=== PATIENT | female | born 1950 | race Caucasian/White ===

== ENCOUNTER 2021-03-06 06:12 | Observation (INO) | payer MEDICARE, OTHER ==
[~2021-03-06] VITALS: Ht 160 cm; Wt 58.7 kg
[2021-03-06] MEDS ORDERED: NS IV 1000 ML 1,000 ML IV SCH (06:30)
[2021-03-06] MEDS ORDERED: LORazepam INJ 2 MG/ML (ATIVAN) VIAL IVP ONE (06:30)
--- NOTE | 2021-03-06 06:54 | ED Cardiac General ---
History of Present Illness General Chief Complaint: Cardiac/General Problems Stated Complaint: ABNORMAL HEARTRATE Nursing Triage Note: Pt states she feels like her heart rate has been higher than her normal. Pt also states she has felt nauseated and dizzy since last night. Pt denies chest pain at this time Source: patient Exam Limitations: no limitations (RADHA SPENCER DO) History of Present Illness Date Seen by Provider: Mar 06, 2021 Time Seen by Provider: 06:25 Initial Comments Patient has 70-year-old female with history of dyslipidemia mitral valve prolapse who presents with recent fever of 1 week ago body aches slight headache. Patient was evaluated at urgent care and had a Covid and influenza swab which were negative. She was placed on amoxicillin for what was believed to be sinus infection. She has h as noted shortness of breath dizziness and palpitations over the past 3 days. She states that her resting heart rate is usually in the 60s but has been in the 110s. She feels anxious and has had difficulty sleeping and only slept 1 hour last night. She reports dyspnea with mild exertion and dry mouth. She no longer has fever, cough or sore throat. She is not on any decongestants or stimulants. Denies leg pain or swelling. No other symptoms or complaints. She denies history of thyroid disease or PE. She has completed the motor neck Covid Moderna vaccination series in October. \\ Timing/Duration: 6-7 days Severity: moderate Location: other Activities at Onset: other Prior CP/Workup: other Modifying Factors: improves with other Associated Systoms: Other (RADHA SPENCER DO) Allergies and Home Medications Allergies Coded Allergies: amoxicillin (Verified Allergy, Unknown, 03/06/21) clavulanic acid (Verified Allergy, Unknown, 03/06/21) Home Medications Ascorbic Acid 250 Mg Tab.chew, 250 MG PO DAILY, (Reported) Last Action: Reviewed Atorvastatin Calcium 20 Mg Tablet, 20 MG PO HS, (Reported) Last Action: Reviewed Ca Carbonate/Vitamin D3/Vit K 1 Each Tab.chew, 1 EACH PO DAILY, (Reported) Last Action: Reviewed Cholecalciferol (Vitamin D3) 50 Mcg Tab.chew, 50 MCG PO DAILY, (Reported) Last Action: Reviewed Ciclopirox Olamine 15 Gm Cream..g., 1 APPLIC TOP BID, (Reported) APPLY TO TOENAILS Last Action: Reviewed Fluticasone Propionate 16 Gm [place].susp, 1 SPRAY NSEACH DAILY, (Reported) Last Action: Reviewed Folic Acid/Multivit-Minerals 200 Mcg Tab.chew, 200 MCG PO DAILY, (Reported) Last Action: Reviewed Furosemide 40 Mg Tablet, 40 MG PO DAILY Prescribed by: ILENE BOURGEOIS on 03/07/21 1346 Ibuprofen 100 Mg Tab.chew, 200 MG PO Q8H PRN for PAIN-MILD (1-4), (Reported) Last Action: Reviewed Potassium Chloride 40 Meq/15 Ml Liquid, 10 MEQ PO DAILY Prescribed by: ILENE BOURGEOIS on 03/07/21 1346 Ubidecarenone 50 Mg Tab.chew, 50 MG PO DAILY, (Reported) Last Action: Reviewed Patient Home Medication List Home Medication List Reviewed: Yes (RADHA SPENCER DO) Review of Systems Review of Systems Constitutional: see HPI EENTM: See HPI Respiratory: See HPI Cardiovascular: See HPI Gastrointestinal: See HPI Genitourinary: See HPI Musculoskeletal: see HPI Skin: see HPI Psychiatric/Neurological: See HPI Endocrine: See HPI Hematologic/Lymphatic: See HPI (RADHA SPENCER DO) Past Olzupca-Agmjtd-Pvfnej Hx Patient Social History Tobacco Use?: Yes Use of E-Cig and/or Vaping dev: No Substance use?: No Alcohol Use?: No Pt feels they are or have been: No (RADHA SPENCER DO) Physical Exam Vital Signs Vital Signs - First Documented 03/06/21 06:15 Temp 36.8 Pulse 122 Resp 18 B/P (MAP) 158/77 (104) Pulse Ox 95 O2 Delivery Room Air Capillary Refill : Less Than 3 Seconds Height, Weight, BMI Height: '" Weight: lbs. oz. kg; BMI Method: General Appearance: WD/WN, Anxious, Other (Restless, fidgeting of all extremities, pressured speech) HEENT: PERRL/EOMI, TMs Normal, Normal ENT Inspection, Pharynx Normal, Other (No sinus tenderness) Neck: Normal Inspection, Non Tender, Supple Respiratory: Lungs Clear, Normal Breath Sounds, No Respiratory Distress, Other (Mild tachypnea, respiratory rate 18) Cardiovascular: No Edema, No Gallop, No JVD, Tachycardia Gastrointestinal: Soft Extremity: Normal Capillary Refill, Normal Inspection, Normal Range of Motion, Non Tender Neurologic/Psychiatric: Alert, Oriented x3, No Motor/Sensory Deficits, 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 Norm as Tested Skin: Normal Color, Warm/Dry (JOHANNARADHA ) Vital Signs Vital Signs - First Documented 03/06/21 06:15 Temp 36.8 Pulse 122 Resp 18 B/P (MAP) 158/77 (104) Pulse Ox 95 O2 Delivery Room Air (AXELWILLIAM FRANCISCO ) Focused Exam Sepsis Stage: Ruled Out (RADHA SPENCER DO) Lactate Level 03/06/21 06:30: Lactic Acid Level 1.57 (AXELTINLOANWILLIAM Duke ) Lactic Acid Level Laboratory Tests Test 03/06/21 06:30 Lactic Acid Level 1.57 MMOL/L (0.50-2.00) (AXELTINLOANWILLIAM Duke ) Progress/Results/Core Measures Results/Orders My Orders Orders - RADHA SPENCER DO Cbc With Automated Diff (03/06/21 06:30) Comprehensive Metabolic Panel (03/06/21 06:30) Troponin I Fs (03/06/21 06:30) Probnp Fs (03/06/21 06:30) Chest 1 View Ap/Pa Only (03/06/21 06:30) Fibrin Degradation Products (03/06/21 06:30) Magnesium (03/06/21 06:30) Lorazepam Injection (Ativan Injection) (03/06/21 06:30) Ns Iv 1000 Ml (Sodium Chloride 0.9%) (03/06/21 06:30) Lactic Acid Analyzer (03/06/21 06:30) Ekg Tracing (03/06/21 06:36) Medications Given in ED Current Medications Medications Dose Ordered Sig/Kelsi Route Start Time Stop Time Status Last Admin Dose Admin Lorazepam 0.5 mg ONCE ONCE IVP 03/06/21 06:30 03/06/21 06:32 DC 03/06/21 06:46 0.5 MG Vital Signs/I&O 03/06/21 06:15 Temp 36.8 Pulse 122 Resp 18 B/P (MAP) 158/77 (104) Pulse Ox 95 O2 Delivery Room Air Blood Pressure Mean: 104 (RADHA SPENCER DO) Lab Results Laboratory Tests Test 03/06/21 06:30 Range/Units White Blood Count 9.4 4.3-11.0 10^3/uL Red Blood Count 5.04 4.35-5.85 10^6/uL Hemoglobin 15.2 11.5-16.0 G/DL Hematocrit 46 35-52 % Mean Corpuscular Volume 91 80-99 FL Mean Corpuscular Hemoglobin 30 25-34 PG Mean Corpuscular Hemoglobin Concent 33 32-36 G/DL Red Cell Distribution Width 13.0 10.0-14.5 % Platelet Count 213 130-400 10^3/uL Mean Platelet Volume 10.6 H 7.4-10.4 FL Immature Granulocyte % (Auto) 0 % Neutrophils (%) (Auto) 77 H 42-75 % Lymphocytes (%) (Auto) 13 12-44 % Monocytes (%) (Auto) 9 0-12 % Eosinophils (%) (Auto) 1 0-10 % Basophils (%) (Auto) 0 0-10 % Neutrophils # (Auto) 7.2 1.8-7.8 X 10^3 Lymphocytes # (Auto) 1.2 1.0-4.0 X 10^3 Monocytes # (Auto) 0.8 0.0-1.0 X 10^3 Eosinophils # (Auto) 0.1 0.0-0.3 10^3/uL Basophils # (Auto) 0.0 0.0-0.1 10^3/uL Immature Granulocyte # (Auto) 0.0 0.0-0.1 10^3/uL D-Dimer 1.02 H 0.00-0.49 UG/ML Sodium Level 138 135-145 MMOL/L Potassium Level 4.0 3.6-5.0 MMOL/L Chloride Level 101 98-107 MMOL/L Carbon Dioxide Level 22 21-32 MMOL/L Anion Gap 15 H 5-14 MMOL/L Blood Urea Nitrogen 12 7-18 MG/DL Creatinine 0.62 0.60-1.30 MG/DL Estimat Glomerular Filtration Rate > 60 BUN/Creatinine Ratio 19 Glucose Level 106 H 70-105 MG/DL Lactic Acid Level 1.57 0.50-2.00 MMOL/L Calcium Level 9.5 8.5-10.1 MG/DL Corrected Calcium 9.5 8.5-10.1 MG/DL Magnesium Level 2.1 1.6-2.4 MG/DL Total Bilirubin 0.5 0.1-1.0 MG/DL Aspartate Amino Transf (AST/SGOT) 24 5-34 U/L Alanine Aminotransferase (ALT/SGPT) 32 0-55 U/L Alkaline Phosphatase 117 40-136 U/L Troponin I < 0.30 <0.30 NG/ML Pro-B-Type Natriuretic Peptide 1048.0 H <75.0 PG/ML Total Protein 7.4 6.4-8.2 GM/DL Albumin 4.0 3.2-4.5 GM/DL My Orders Orders - WILLIAM WALTER DO Ct Angio Chest W (03/06/21 07:36) Iohexol Injection (Omnipaque 350 Mg/Ml 1 (03/06/21 07:45) Received Contrast (Hold Metformin- Contr (03/06/21 07:45) Sodium Chloride Flush (Catheter Flush Sy (03/06/21 07:45) Ns (Ivpb) (Sodium Chloride 0.9% Ivpb Bag (03/06/21 07:45) Enoxaparin Injection (Lovenox Injection) (03/06/21 08:00) Metoprolol Tartrate Injection (Lopressor (03/06/21 08:45) Metoprolol Tartrate Injection (Lopressor (03/06/21 09:30) Medications Given in ED Current Medications Medications Dose Ordered Sig/Kelsi Route Start Time Stop Time Status Last Admin Dose Admin Iohexol 100 ml ONCE ONCE IV 03/06/21 07:45 03/06/21 07:46 DC 03/06/21 08:00 100 ML Lorazepam 0.5 mg ONCE ONCE IVP 03/06/21 06:30 03/06/21 06:32 DC 03/06/21 06:46 0.5 MG Metoprolol Tartrate 5 mg ONCE ONCE IV 03/06/21 08:45 03/06/21 08:46 DC 03/06/21 08:44 5 MG Metoprolol Tartrate 5 mg ONCE ONCE IV 03/06/21 09:30 03/06/21 09:31 DC 03/06/21 09:24 5 MG Sodium Chloride 10 ml NEEDED PRN IV 03/06/21 07:45 03/06/21 08:00 10 ML Sodium Chloride 100 ml ONCE ONCE IV 03/06/21 07:45 03/06/21 07:46 DC 03/06/21 08:00 100 ML Vital Signs/I&O 03/06/21 03/06/21 06:15 09:12 Temp 36.8 36.1 Pulse 122 99 Resp 18 18 B/P (MAP) 158/77 (104) 140/88 Pulse Ox 95 96 O2 Delivery Room Air Room Air (WILLIAM WALTER DO) Progress Progress Note : Progress Note symptomatic improvement when HR slows w metoprolol. Otherwise stable and well appearing. 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 The lungs are clear. There is no effusion or pneumothorax. There is no bony abnormality. IMPRESSION: Normal portable chest. Dictated on workstation # [id number] INDICATION: Tachycardia, elevated d-dimer with shortness of breath. I have no previous. The pulmonary arterial branches are well opacified, widely patent. No filling defect. No PE. The thoracic aorta is patent, nonaneurysmal and nonacute. This patient has bilateral pleural effusions, slightly greater right. They are nonloculated and the right layers to a maximal depth of 2.4 cm. There is some subjacent dependent bibasilar partial atelectasis and a small hiatal hernia. Some mild circumferential thickening of the beltran of the lower thoracic esophagus which may reflect sequelae of reflux. There is no pneumothorax. Heart size itself within normal limits. There is some mild prominence of the pulmonary venous structures and perihilar lower lobe interstitial markings showed some smooth thickening and mild basilar groundglass density. Hypervolemia or mild failure may be present. Infectious etiology including viral pathogens could not be excluded in the appropriate scenario. No acute chest wall pathology. The visualized upper abdomen demonstrates no acute appearing abnormality. IMPRESSION: 1. Negative for PE or acute aortic disease. 2. Bilateral pleural effusions, mild venous congestion, and probable mild perihilar and basilar interstitial type edema. Infectious etiologies could not be excluded. 3. No mass or lymphadenopathy. Dictated on workstation # [id number] Dict: 03/06/21822 Trans: 03/06/21 0831 [place] [id number] Interpreted by: SUSY STOCKTON Electronically signed by: Dict: 03/06/21719 Trans: 03/06/21 0724 [place] [id number] Interpreted by: SAH DICK MD Electronically signed by: (WILLIAM WALTER DO) Departure Communication (Admissions) EKG dated 03/06/21, 06:19: Sinus tach, rate 111, TN 1 67, QRS 99, QTc 442. No acute ST-T wave changes Patient anxious with palpitations with mild tachycardia in setting of recent fever. Blood pressure stable. IV fluids, Ativan given. Work-up in progress. Care to be transitioned to oncoming ERP at 07:00 (RADHA SPENCER DO) Time/Spoke to Admitting Phy: 09:[address] Bourgeois who accepts for Tele- admission. Discussed seemingly insignificant PMHX of MVP and HPI of recent dyspnea, malaise and rapid resting HR developing and gradually progressing over the past several days. Unable to get thyroid or covid testing at this facility. Patient had a negative Covid test over the weekend at a local Urgent Care and is also vaccinated to C-19 in October noted elevted p-BNP w small venous congestion and effusions on CT Much improved w IV Metoprolol 5mg x 2 (WILLIAM WALTER DO) Impression Primary Impression: Dyspnea Qualified Codes: R06.00 - Dyspnea, unspecified Additional Impressions: Sinus tachycardia Elevated d-dimer Heart failure Qualified Codes: I50.9 - Heart failure, unspecified Disposition: 30 STILL A PATIENT Condition: Improved Admissions Decision to Admit Reason: Admit from ER (General) Decision to Admit/Date: Mar 06, 2021 Time/Decision to Admit Time: 07:00 (WILLIAM WALTER DO) Departure-Patient Inst. Referrals: RICHIE CALVILLO MD (PCP/Family) Primary Care Physician Scripts Potassium Chloride (Potassium Chloride) 40 Meq/15 Ml Liquid 10 MEQ PO DAILY, #8 OZ Prov: ILENE BOURGEOIS DO 03/07/21 Furosemide (Furosemide) 40 Mg Tablet 40 MG PO DAILY, #30 TAB Prov: ILENE BOURGEOIS DO 03/07/21 RADHA SPENCER DO Mar 06, 2021 06:54 WILLIAM WALTER DO Mar 06, 2021 07:36
[2021-03-06 07:15] LABS: EOSINOPHILS % (AUTO) 1 % (0-10); HEMATOCRIT 46 % (35-52); HEMOGLOBIN 15.2 G/DL (11.5-16.0); LYMPHOCYTES % (AUTO) 13 % (12-44); MEAN CORPUSCULAR HEMOGLOBIN 30 PG (25-34); MEAN CORPUSCULAR HGB CONC 33 G/DL (32-36); MEAN CORPUSCULAR VOLUME 91 FL (80-99); MEAN PLATELET VOLUME 10.6 FL (7.4-10.4); MONOCYTES % (AUTO) 9 % (0-12); NEUTROPHILS % (AUTO) 77 % (42-75); PLATELET COUNT 213 10^3/uL (130-400); WHITE BLOOD COUNT 9.4 10^3/uL (4.3-11.0)
[2021-03-06 07:16] LABS: BASOPHILS % (AUTO) 0 % (0-10); EOSINOPHILS # (AUTO) 0.1 10^3/uL (0.0-0.3); LYMPHOCYTES # (AUTO) 1.2 X 10^3 (1.0-4.0); MONOCYTES # (AUTO) 0.8 X 10^3 (0.0-1.0); NEUTROPHILS # (AUTO) 7.2 X 10^3 (1.8-7.8)
--- NOTE | 2021-03-06 07:24 | Diagnostic Imaging Report ---
Indication: Tachycardia Portable chest shows normal heart size and vascularity. The lungs are clear. There is no effusion or pneumothorax. There is no bony abnormality. IMPRESSION: Normal portable chest. Dictated by: Dictated on workstation # [id number]
[2021-03-06 07:36] LABS: ALANINE AMINOTRANSFERASE 32 U/L (0-55); ALKALINE PHOSPHATASE 117 U/L (40-136); BILIRUBIN,TOTAL 0.5 MG/DL (0.1-1.0); BUN/CREATININE RATIO 19; CALCIUM 9.5 MG/DL (8.5-10.1); CARBON DIOXIDE 22 MMOL/L (21-32); CHLORIDE 101 MMOL/L (98-107); CREATININE SERUM 0.62 MG/DL (0.60-1.30); GFR ESTIMATED > 60; GLUCOSE 106 MG/DL (70-105); MAGNESIUM 2.1 MG/DL (1.6-2.4); SODIUM 138 MMOL/L (135-145); TOTAL PROTEIN 7.4 GM/DL (6.4-8.2)
[2021-03-06] MEDS ORDERED: IOHEXOL 350 MG/ML 100 ML (OMNIPAQUE 350) VIAL IV ONE (07:45)
[2021-03-06] MEDS ORDERED: CATHETER FLUSH 10 ML SYR IV PRN (07:45)
[2021-03-06] MEDS ORDERED: HOLD METFORMIN - RECEIVED CONTRAST 20 ML VIAL IV SCH (07:45)
[2021-03-06] MEDS ORDERED: NS 100 ML (IVPB) BAG IV ONE (07:45)
[2021-03-06] MEDS ORDERED: ENOXAPARIN 40 MG/0.4 ML (LOVENOX) SYR SQ SCH (08:00)
--- NOTE | 2021-03-06 08:32 | Diagnostic Imaging Report ---
PROCEDURE: CT angiography of the chest with contrast. TECHNIQUE: Multiple contiguous axial images were obtained through the chest after uneventful bolus administration of intravenous contrast. 3D reconstructed CTA MIP acquisitions were also performed. Auto Exposure Controls were utilized during the CT exam to meet ALARA standards for radiation dose reduction. INDICATION: Tachycardia, elevated d-dimer with shortness of breath. I have no previous. The pulmonary arterial branches are well opacified, widely patent. No filling defect. No PE. The thoracic aorta is patent, nonaneurysmal and nonacute. This patient has bilateral pleural effusions, slightly greater right. They are nonloculated and the right layers to a maximal depth of 2.4 cm. There is some subjacent dependent bibasilar partial atelectasis and a small hiatal hernia. Some mild circumferential thickening of the beltran of the lower thoracic esophagus which may reflect sequelae of reflux. There is no pneumothorax. Heart size itself within normal limits. There is some mild prominence of the pulmonary venous structures and perihilar lower lobe interstitial markings showed some smooth thickening and mild basilar groundglass density. Hypervolemia or mild failure may be present. Infectious etiology including viral pathogens could not be excluded in the appropriate scenario. No acute chest wall pathology. The visualized upper abdomen demonstrates no acute appearing abnormality. IMPRESSION: 1. Negative for PE or acute aortic disease. 2. Bilateral pleural effusions, mild venous congestion, and probable mild perihilar and basilar interstitial type edema. Infectious etiologies could not be excluded. 3. No mass or lymphadenopathy. Dictated by: Dictated on workstation # [id number]
[2021-03-06] MEDS ORDERED: meTOprolol 5 MG/5 ML (LOPRESSOR) VIAL IV ONE ×2 (08:45→09:30)
[2021-03-06 10:35] VITALS: BP 151/93
--- NOTE | 2021-03-06 11:30 | History & Physical-Hospitalist ---
History of Present Illness HPI/Chief Complaint CC: SOB HPI: This is a 70yoWF clinic Pt of Dr. Rincon and cardiology at [facility] who has a history of hyperlipidemia and mitral valve prolapse who presented to the [facility] ER with several days duration of SOB, she had gone to Urgent Care on Thursday morning, treated for a sinus infection, tested for Covid-19 which was negative and she had been vaccinated in October again Covid. Upon evaluation, she was found to have fluid overload and likely new onset CHF. [facility] had no beds available so she was transferred to [facility]. Dr. Lopez will be consulted and echocardiogram will be obtained. Pt denies any current pain right now. Oxygen is required or else she does have chest pressure. 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 Patients Allergies have been reviewed. Allergies Allergies Coded Allergies amoxicillin (Verified Allergy, Unknown, 03/06/21) clavulanic acid (Verified Allergy, Unknown, 03/06/21) Past Aajeizf-Eqglht-Ozsdfi Hx Patient Social History Marrital Status: Employed/Student: employed Tobacco Use?: No Smoking Status: Never a Smoker Smokeless Tobacco Frequency: Never a User Use of E-Cig and/or Vaping dev: No Substance use?: No Alcohol Use?: Yes Alcohol type: Wine Alcohol Frequency: Once in a while Pt feels they are or have been: No Immunizations Up To Date First/Initial COVID19 Vaccinat: SEPTEMBER 2020 Second COVID19 Vaccination Felix: OCTOBER 2020 Tetanus Booster (TDap): Unknown Hepatitis A: No Hepatitis B: No Current Status status: No Advance Directives: No Communicates: Verbally Primary Language: Scottish Preferred Spoken Language: Scottish Is interpretation needed?: No Sensory deficits: Vision impairment Implanted or Applied Medical D: None Past Medical History High Cholesterol, Valvular Heart Disease Review of Systems Constitutional: see HPI Respiratory: dyspnea on exertion, short of breath Physical Exam Physical Exam Vital Signs Vital Signs - First Documented 03/06/21 03/06/21 06:15 12:35 Temp 36.8 Pulse 122 Resp 18 B/P (MAP) 158/77 (104) Pulse Ox 95 O2 Delivery Room Air O2 Flow Rate 2.00 Capillary Refill : Less Than 3 Seconds Height, Weight, BMI Height: '" Weight: lbs. oz. kg; 23.59 BMI Method: General Appearance: No Apparent Distress Eyes: Right Eye Normal Inspection, Right Eye PERRL HEENT: PERRL/EOMI, Normal ENT Inspection, Pharynx Normal, Moist Mucous Membranes Neck: Full Range of Motion, Normal Inspection, Non Tender Respiratory: Chest Non Tender, Lungs Clear, Normal Breath Sounds, No Accessory Muscle Use, No Respiratory Distress Cardiovascular: Regular Rate, Rhythm, No Edema, No Gallop, No JVD, Normal Per ipheral Pulses, Systolic Murmur Gastrointestinal: Normal Bowel Sounds, No Organomegaly, No Pulsatile Mass, Non Tender, Soft Back: Normal Inspection, No CVA Tenderness, No Vertebral Tenderness Extremity: Normal Capillary Refill, Normal Inspection, Normal Range of Motion, Non Tender, No Calf Tenderness, No Pedal Edema Neurologic/Psychiatric: Alert, Oriented x3, No Motor/Sensory Deficits, Normal Mood/Affect Skin: Normal Color, Warm/Dry Lymphatic: No Adenopathy Results Results/Procedures Labs Laboratory Tests 03/06/21 06:30 Patient resulted labs reviewed. Assessment/Plan Admission Diagnosis Assessment: New onset congestive heart failure Severe mitral valve regurgitation with history of mitral valve prolapse managed at [facility] Plan: Cardiology consultation is appreciated Echocardiogram Monitor labs Diuresis Admission Status: Observation Reason for Inpatient Admission: CHF Diagnosis/Problems Diagnosis/Problems (1) Acute diastolic congestive heart failure (2) Pulmonary hypertension (3) Mitral regurgitation (4) Mixed hyperlipidemia (5) Dyspnea Status: Acute Qualifiers: Dyspnea type: unspecified Qualified Codes: R06.00 - Dyspnea, unspecified (6) Elevated d-dimer Status: Acute (7) Sinus tachycardia Status: Acute MEGAN BARNES DO Mar 06, 2021 11:30
[2021-03-06] MEDS ORDERED: ATOR20TA66 PO (12:27)
[2021-03-06] MEDS ORDERED: FLUT16SP22 NSEACH (12:27)
[2021-03-06] MEDS ORDERED: FOLI200T11 PO (12:27)
[2021-03-06] MEDS ORDERED: AMOX400S9 PO (12:27)
[2021-03-06] MEDS ORDERED: IBUP100T74 PO (12:27)
[2021-03-06] MEDS ORDERED: ASCO250T17 PO (12:27)
[2021-03-06] MEDS ORDERED: CICL15CR11 TOP (12:27)
[2021-03-06] MEDS ORDERED: CA C1TAB79 PO (12:27)
[2021-03-06] MEDS ORDERED: CHOL200078 PO (12:27)
[2021-03-06] MEDS ORDERED: UBID50TA3 PO (12:27)
[2021-03-06 12:35] VITALS: BP 147/87
[2021-03-06] MEDS ORDERED: FUROSEMIDE 40 MG/4 ML INJ (LASIX) IVP NR (13:00)
--- NOTE | 2021-03-06 13:09 | Consultation-Cardiology ---
HPI-Cardiology Cardiology Consultation: Date of Consultation 03/06/2021 Date of Admission 03/06/2021 Attending Physician Megan Barnes DO Admitting Physician Jean Rincon MD Consulting Physician RUTHANN KEY JR, MD HPI: Time Seen by a Provider: 13:04 Chief Complaint: Reason for consultation: Heart failure and tachycardia. At the pleasure of seeing Mercedes in the medical/surgical unit at [facility] in [place], [place] today. She has a history of mitral regurgitation and follows with a teacher early childhood development at [facility]. Her last appointment was last fall. She also has a history of hyperlipidemia. She was in her usual state of health until around Thursday when she developed a cough productive of some yellowish sputum as well as a low-grade fever. She went to an urgent care on Thursday and was told she might have sinusitis and was placed on amoxicillin. She denies any further fevers. However, since that time, she has been noticing that her heart rate has been more elevated than usual and she has also been getting short of breath with normal daily activities. She has not had the symptoms in the past. She is normally quite active and does not have dyspnea on exertion or tachycardia. Last evening her heart rate was even more elevated and she was more short of breath. She had a hard time falling asleep. She tried s leeping in a chair and this did not help. She spent most of the night a week and then early this morning, decided to go to the emergency room in [place] for further evaluation. She underwent a chest CT and chest x-ray and did not have any evidence of a pulmonary embolism but did have evidence of pulmonary vascular congestion and small bilateral effusions. As such, he was she was transferred to our hospital for inpatient admission. She denies any chest discomfort. When her heart rate goes fast she does have some palpitations with a sensation of rapid heartbeats. She denies lightheadedness, syncope, or lower extremity edema. She had recently been traveling in the [facility] and did a fair amount of driving for up to 7 hours a day. However, she was good about stopping intermittently and getting out to stretch her legs and use the bathroom or stop for lunch. Certain portions of this document may have been dictated utilizing voice recognition technology. Inherent to this technology, typographical and gramm atical errors may exist. As much as I am diligent to identify and correct these mistakes, some errors may remain in the document. Review of Systems-Cardiology Review of Systems Other comments Review of 10 organ systems is as per the history of present illness, otherwise negative. [id number] Hx Patient Social History Smoking Status: Never a Smoker Have you traveled recently?: No Alcohol Use?: Yes Pt feels they are or have been: No Past Medical History PMH As described under Assessment. Allergies and Home Medications Allergies Coded Allergies: amoxicillin (Verified Allergy, Unknown, 03/06/21) clavulanic acid (Verified Allergy, Unknown, 03/06/21) Home Medications Amoxicillin 400 Mg/5 Ml Susp.recon, 9 ML PO Q12H, (Reported) FILLED 03-03-2021 #150ML/7 DAY SUPPLY Last Action: Reviewed Ascorbic Acid 250 Mg Tab.chew, 250 MG PO DAILY, (Reported) Last Action: Reviewed Atorvastatin Calcium 20 Mg Tablet, 20 MG PO HS, (Reported) Last Action: Reviewed Ca Carbonate/Vitamin D3/Vit K 1 Each Tab.chew, 1 EACH PO DAILY, (Reported) Last Action: Reviewed Cholecalciferol (Vitamin D3) 50 Mcg Tab.chew, 50 MCG PO DAILY, (Reported) Last Action: Reviewed Ciclopirox Olamine 15 Gm Cream..g., 1 APPLIC TOP BID, (Reported) APPLY TO TOENAILS Last Action: Reviewed Fluticasone Propionate 16 Gm [place].susp, 1 SPRAY NSEACH DAILY, (Reported) Last Action: Reviewed Folic Acid/Multivit-Minerals 200 Mcg Tab.chew, 200 MCG PO DAILY, (Reported) Last Action: Reviewed Ibuprofen 100 Mg Tab.chew, 200 MG PO Q8H PRN for PAIN-MILD (1-4), (Reported) Last Action: Reviewed Ubidecarenone 50 Mg Tab.chew, 50 MG PO DAILY, (Reported) Last Action: Reviewed Patient Home Medication List Home Medication List Reviewed: Yes Exam Vital Signs Vital Signs Date Time Temp Pulse Resp B/P (MAP) Pulse Ox O2 Delivery O2 Flow Rate FiO2 03/06/21 16:06 37.2 102 18 140/85 (103) 95 Nasal Cannula 2.00 Physical Exam General: Alert. No acute distress. Well nourished and appears stated age. Eye: Extraocular movements are intact. Conjunctivae are clear. There are no xanthelasma. HENT: Normocephalic. Atraumatic. Carotid pulsations 2/2 without bruits. Neck: Jugular venous pressure does not appear elevated. No thyromegaly appreciated. Respiratory: Lungs Have decreased breath sounds at the bases with bibasilar crackles about third of the way up. Respirations are non-labored. Breath sounds are equal. Symmetrical chest wall expansion. Cardiovascular: Tachycardic. Regular rhythm.2/6 systolic ejection murmur at the right upper sternal border murmur and 2/6 holosystolic murmur at the apex. No gallop. Point of maximal impulse is not appear displaced. Good pulses equal in all extremities. No edema. Gastrointestinal: Soft. Normal bowel sounds. Skin: Skin turgor is normal. There is no pallor. Musculoskeletal: No kyphosis or scoliosis appreciated. Neurologic: Alert and oriented to person, place, time. Cranial nerves 3-12 appear grossly intact. The patient has good motor tone strength in the upper and lower extremities bilaterally. Psychiatric: Cooperative. Appropriate mood & affect. Labs Laboratory Tests Test 03/06/21 06:30 Range/Units White Blood Count 9.4 4.3-11.0 10^3/uL Red Blood Count 5.04 4.35-5.85 10^6/uL Hemoglobin 15.2 11.5-16.0 G/DL Hematocrit 46 35-52 % Mean Corpuscular Volume 91 80-99 FL Mean Corpuscular Hemoglobin 30 25-34 PG Mean Corpuscular Hemoglobin Concent 33 32-36 G/DL Red Cell Distribution Width 13.0 10.0-14.5 % Platelet Count 213 130-400 10^3/uL Mean Platelet Volume 10.6 H 7.4-10.4 FL Immature Granulocyte % (Auto) 0 % Neutrophils (%) (Auto) 77 H 42-75 % Lymphocytes (%) (Auto) 13 12-44 % Monocytes (%) (Auto) 9 0-12 % Eosinophils (%) (Auto) 1 0-10 % Basophils (%) (Auto) 0 0-10 % Neutrophils # (Auto) 7.2 1.8-7.8 X 10^3 Lymphocytes # (Auto) 1.2 1.0-4.0 X 10^3 Monocytes # (Auto) 0.8 0.0-1.0 X 10^3 Eosinophils # (Auto) 0.1 0.0-0.3 10^3/uL Basophils # (Auto) 0.0 0.0-0.1 10^3/uL Immature Granulocyte # (Auto) 0.0 0.0-0.1 10^3/uL D-Dimer 1.02 H 0.00-0.49 UG/ML Sodium Level 138 135-145 MMOL/L Potassium Level 4.0 3.6-5.0 MMOL/L Chloride Level 101 98-107 MMOL/L Carbon Dioxide Level 22 21-32 MMOL/L Anion Gap 15 H 5-14 MMOL/L Blood Urea Nitrogen 12 7-18 MG/DL Creatinine 0.62 0.60-1.30 MG/DL Estimat Glomerular Filtration Rate > 60 BUN/Creatinine Ratio 19 Glucose Level 106 H 70-105 MG/DL Lactic Acid Level 1.57 0.50-2.00 MMOL/L Calcium Level 9.5 8.5-10.1 MG/DL Corrected Calcium 9.5 8.5-10.1 MG/DL Magnesium Level 2.1 1.6-2.4 MG/DL Total Bilirubin 0.5 0.1-1.0 MG/DL Aspartate Amino Transf (AST/SGOT) 24 5-34 U/L Alanine Aminotransferase (ALT/SGPT) 32 0-55 U/L Alkaline Phosphatase 117 40-136 U/L Troponin I < 0.30 <0.30 NG/ML Pro-B-Type Natriuretic Peptide 1048.0 H <75.0 PG/ML Total Protein 7.4 6.4-8.2 GM/DL Albumin 4.0 3.2-4.5 GM/DL Radiology ECHOCARDIOGRAM (03/06/2021): The cavity size is normal. There is mild concentric hypertrophy. Systolic function is normal. The estimated ejection fraction is 60-65%. There were no regional wall motion abnormalities identified. Features are consistent with a pseudonormal left ventricular filling pattern, with concomitant abnormal relaxation and increased filling pressure (grade 2 diastolic dysfunction). 2. Left atrium: The atrium is mildly to moderately dilated at 4.9 cm. 3. Mitral valve: The annulus is mildly calcified. The leaflets are mildly thickened and mildly calcified, predominately the posterior leaflet. There is moderate to severe regurgitation. 4. Aortic valve: There is mild regurgitation. There is mild aortic valve sclerosis. Although the aortic valve appears to open normally on 2D imaging, there is accelerated flow across the valve with a mean gradient of 25 mmHg, a peak gradient of 46 mmHg, a peak velocity of 3.4 m/s with a calculated aortic valve area of 0.9 cm. 5. Tricuspid valve: There is moderate-severe regurgitation. 6. Pulmonary arteries: The estimated pulmonary artery systolic pressure is 65 mmHg. ECG Impression ECG Comment I can't locate ECG in system. Diagnosis/Problems Diagnosis/Problems (1) Acute diastolic congestive heart failure Assessment & Plan: This with was evident on her chest CT and her symptoms and exam are consistent with heart failure. Her chest CT did not report pulmonary embolism. I have given her 1 dose of IV Lasix. I ordered a follow up chest x-ray for tomorrow. (2) Sinus tachycardia Status: Acute Assessment & Plan: Likely related to hypoxia from the heart failure. We will monitor. (3) Mitral regurgitation Assessment & Plan: This is moderate to severe. This may improve with treatment of the heart failure. She will need to follow up with her regular teacher early childhood development at [facility] after discharge. (4) Pulmonary hypertension Assessment & Plan: I suspect this is multifactorial secondary to the acute heart failure and her chronic mitral regurgitation. This will need to be followed longitudinally by her regular teacher early childhood development. Of note, her CT angiogram of the chest did not show any evidence of a pulmonary embolism. (5) Mixed hyperlipidemia Assessment & Plan: Continue statin medication. RUTHANN KEY JR, MD Mar 06, 2021 13:09
[2021-03-06 16:06] VITALS: BP 140/85
[2021-03-06 19:19] VITALS: BP 137/75
[2021-03-06] MEDS ORDERED: CALCIUM CARBONATE 500 MG (TUMS) TAB.CHEW PO PRN (20:30)
[2021-03-06] MEDS ORDERED: ONDANSETRON 4 MG/2 ML (SDV) Z0FRAN IVP PRN (20:30)
[2021-03-06] MEDS ORDERED: ALPRAZolam 0.25 MG (XANAX) TAB PO PRN (20:30)
[2021-03-06] MEDS ORDERED: ONDANSETRON 4 MG (ZOFRAN) ORAL DISSOLVE TAB PO PRN (20:30)
[2021-03-06] MEDS ORDERED: diphenhydrAMINE 25 MG TAB (BENADRYL) PO PRN (20:30)
[2021-03-06] MEDS ORDERED: guaiFENesin/CODEINE (ROBITUSSIN AC) 10ML UDC PO PRN (20:30)
[2021-03-06] MEDS ORDERED: ACETAMINOPHEN 500 MG TAB (TYLENOL) PO PRN (20:30)
[2021-03-06] MEDS ORDERED: LOPERAMIDE 2 MG (IMODIUM) TABLET PO PRN (20:30)
[2021-03-06] MEDS ORDERED: MELATONIN 3 MG TABLET PO PRN (20:30)
[2021-03-06] MEDS ORDERED: HYDROcodone/APAP 5 MG/325 MG (LORTAB) TAB PO PRN (20:30)
[2021-03-06] MEDS ORDERED: ENOXAPARIN 40 MG/0.4 ML (LOVENOX) SYR SC SCH (20:30)
[2021-03-06] MEDS ORDERED: DOCUSATE SODIUM 100 MG (COLACE) CAP PO PRN (20:30)
[2021-03-06] MEDS: ACETAMINOPHEN 325 MG TABLET PO PRN (20:58)
[2021-03-06] MEDS: SENNA W/DOCUSATE (SENOKOT S) TABLET PO SCH (20:59)
[2021-03-07 00:13] VITALS: BP 130/70
[2021-03-07] MEDS: ACETAMINOPHEN 325 MG TABLET PO PRN (04:19)
[2021-03-07 04:30] VITALS: BP 122/68
--- NOTE | 2021-03-07 06:29 | Progress Note - Hospitalist ---
Subjective HPI/CC On Admission Date Seen by Provider: Mar 07, 2021 Time Seen by Provider: 10:30 CC: SOB HPI: This is a [id number] clinic Pt of Dr. Rincon and cardiology at [facility] who has a history of hyperlipidemia and mitral valve prolapse who presented to the [facility] ER with several days duration of SOB, she had gone to Urgent Care on Thursday morning, treated for a sinus infection, tested for Covid-19 which was negative and she had been vaccinated in October again Covid. Upon evaluation, she was found to have fluid overload and likely new onset CHF. [facility] had no beds available so she was transferred to [facility]. Dr. Lopez will be consulted and echocardiogram will be obtained. Pt denies any current pain right now. Oxygen is required or else she does have chest pressure. Subjective/Events-last exam Hospital course: Pt did very well. She was admitted, placed on diuretics for CHF, oxygen supplement maintained. Cardiology consulted and evaluate the mitral regurgitation to be severe. Pt will have close follow up with her [facility] coroner/medical examiner for a mitral valve replacement and she was deemed stable for DC. Review of Systems General: Fatigue, Malaise Pulmonary: Dyspnea Focused Exam Lactate Level 03/06/21 06:30: Lactic Acid Level 1.57 Objective Exam Vital Signs Vital Signs Date Time Temp Pulse Resp B/P (MAP) Pulse Ox O2 Delivery O2 Flow Rate FiO2 03/07/21 13:11 115 96 2.00 85 03/07/21 11:29 36.7 18 118/68 (85) Nasal Cannula Capillary Refill : Less Than 3 Seconds General Appearance: No Apparent Distress, WD/WN, Chronically ill Respiratory: Lungs Clear, Normal Breath Sounds Cardiovascular: Regular Rate, Rhythm, Systolic Murmur Neurologic/Psychiatric: Alert, Oriented x3 Results/Procedures Lab Laboratory Tests 03/07/21 06:35 Patient resulted labs reviewed. Assessment/Plan Assessment and Plan Assess & Plan/Chief Complaint Assessment: New onset congestive heart failure Severe mitral valve regurgitation with history of mitral valve prolapse managed at [facility] Hyperlipidemia Plan: Cardiology consultation is appreciated Echocardiogram Monitor labs Diuresis DC Diagnosis/Problems Diagnosis/Problems (1) Acute diastolic congestive heart failure (2) Pulmonary hypertension (3) Mitral regurgitation (4) Mixed hyperlipidemia (5) Dyspnea Status: Acute Qualifiers: Dyspnea type: unspecified Qualified Codes: R06.00 - Dyspnea, unspecified (6) Elevated d-dimer Status: Acute (7) Sinus tachycardia Status: Acute ILENE BOURGEOIS DO Mar 07, 2021 06:29
[2021-03-07 06:58] LABS: BASOPHILS % (AUTO) 0 % (0-10); EOSINOPHILS # (AUTO) 0.1 10^3/uL (0.0-0.3); EOSINOPHILS % (AUTO) 1 % (0-10); HEMATOCRIT 44 % (35-52); LYMPHOCYTES # (AUTO) 1.7 10^3/uL (1.0-4.0); LYMPHOCYTES % (AUTO) 25 % (12-44); MEAN CORPUSCULAR HEMOGLOBIN 31 pg (25-34); MEAN CORPUSCULAR HGB CONC 32 g/dL (32-36); MEAN CORPUSCULAR VOLUME 96 fL (80-99); MEAN PLATELET VOLUME 11.8 fL (9.0-12.2); MONOCYTES # (AUTO) 0.9 10^3/uL (0.0-1.0); MONOCYTES % (AUTO) 13 % (0-12); NEUTROPHILS # (AUTO) 4.1 10^3/uL (1.8-7.8); NEUTROPHILS % (AUTO) 61 % (42-75); PLATELET COUNT 163 10^3/uL (130-400); WHITE BLOOD COUNT 6.8 10^3/uL (4.3-11.0)
[2021-03-07 07:24] LABS: ALBUMIN 3.6 GM/DL (3.2-4.5); BILIRUBIN,TOTAL 0.9 MG/DL (0.1-1.0); CALCIUM 8.7 MG/DL (8.5-10.1); CREATININE SERUM 0.7 MG/DL (0.60-1.30); POTASSIUM 3.8 MMOL/L (3.6-5.0); TOTAL PROTEIN 6.7 GM/DL (6.4-8.2)
[2021-03-07 08:24] VITALS: BP 145/83
[2021-03-07] MEDS: SENNA W/DOCUSATE (SENOKOT S) TABLET PO SCH (08:24)
[2021-03-07] MEDS ORDERED: FUROSEMIDE 40 MG/4 ML INJ (LASIX) IVP SCH (09:00)
[2021-03-07] MEDS ORDERED: ENOXAPARIN 40 MG/0.4 ML (LOVENOX) SYR SQ SCH (09:00)
--- NOTE | 2021-03-07 10:18 | Diagnostic Imaging Report ---
INDICATION: Shortness of breath Compared with radiographs 03/06/2021. There are new small bilateral pleural effusions the lateral and posterior sulci slightly greater right. The heart size itself is stable and normal and no overt vascular congestion no focal pneumonia or findings of pulmonary . IMPRESSION: New small pleural effusions showed no radiographic findings of loculation at this upright two-view study. Normal heart size. The lungs otherwise clear and no pneumothorax. Dictated by: Dictated on workstation # [id number]
[2021-03-07 11:29] VITALS: BP 118/68
--- NOTE | 2021-03-07 11:43 | Progress Note - Cardiology ---
Cardiology SOAP Progress Note Objective: I&O/Vital Signs 03/07/21 03/07/21 03/07/21 03/07/21 01:00 04:30 06:50 08:05 Temp 36.6 Pulse 86 92 86 Resp 20 B/P (MAP) 122/68 (86) Pulse Ox 91 O2 Delivery Nasal Cannula Nasal Cannula O2 Flow Rate 2.00 2.00 03/07/21 03/07/21 03/07/21 08:24 08:36 11:29 Temp 36.5 36.7 Pulse 91 88 Resp 18 18 B/P (MAP) 145/83 (103) 118/68 (85) Pulse Ox 95 95 94 O2 Delivery Nasal Cannula Nasal Cannula Nasal Cannula O2 Flow Rate 2.00 2.00 2.00 03/07/21 00:00 Intake Total 2240 ml Output Total 1750 ml Balance 490 ml Constitutional: AAO x 3, well-developed, well-nourished Respiratory: No accessory muscle use, No respiratory distress; chest expansion is symmetric, chest is bilaterally symmetric, other (good air entry) Cardiovascular: regular rate-rhythm; No JVD; S1 and S2, systolic murmur Gastrointestional: No tender; soft, audible bowel sounds Extremities: no lower extremity edema bilateral Neurologic/Psychiatric: grossly intact (moves all extremities) Skin: No rash on exposed areas, No ulcerations on exposed areas Results/Procedures: Labs Laboratory Tests 03/07/21 06:35: White Blood Count 6.8, Red Blood Count 4.56, Hemoglobin 14.0, Hematocrit 44, Mean Corpuscular Volume 96, Mean Corpuscular Hemoglobin 31, Mean Corpuscular Hemoglobin Concent 32, Red Cell Distribution Width 13.0, Platelet Count 163, Mean Platelet Volume 11.8, Immature Granulocyte % (Auto) 0, Neutrophils (%) (Auto) 61, Lymphocytes (%) (Auto) 25, Monocytes (%) (Auto) 13H, Eosinophils (%) (Auto) 1, Basophils (%) (Auto) 0, Neutrophils # (Auto) 4.1, Lymphocytes # (Auto) 1.7, Monocytes # (Auto) 0.9, Eosinophils # (Auto) 0.1, Basophils # (Auto) 0.0, Immature Granulocyte # (Auto) 0.0, Sodium Level 133L, Potassium Level 3.8, Chloride Level 102, Carbon Dioxide Level 20L, Anion Gap 11, Blood Urea Nitrogen 9, Creatinine 0.70, Estimat Glomerular Filtration Rate 83, BUN/Creatinine Ratio 13, Glucose Level 98, Calcium Level 8.7, Corrected Calcium 9.0, Total Bilirubin 0.9, Aspartate Amino Transf (AST/SGOT) 20, Alanine Aminotransferase (ALT/SGPT) 22, Alkaline Phosphatase 81, Total Protein 6.7, Albumin 3.6 Laboratory Tests 03/06/21 06:30 03/07/21 06:35 Laboratory Tests 03/06/21 06:30 03/07/21 06:35 A/P: Assessment: Acute diastolic congestive heart failure - improved following IV diuretics - Echocardiogram of 03-06-[address] Lopez shows normal LVEF Sinus tachycardia - improved Mitral regurgitation - Moderate to severe per echo of 03-06-[address] Lopez - Advise follow up within a week with her regular server support technician at [facility] after discharge. Pulmonary hypertension Mixed hyperlipidemia - continue statin Plan: Ambulate in halls Change IV diuretics to oral Discussed her CV status with her in detail and questions answered Advise f/u with her server support technician at [facility] following discharge We have reviewed records from GABE Boswell Mar 07, 2021 11:43
--- NOTE | 2021-03-07 12:14 | Progress Note ---
SHABBIR JAQUEZ MED STUDENT 03/07/21 1214: Progress Note CC: States her cough is improving, but still SOB when walking or not on oxygen. No new complaints. PE: general: well-appearing, no acute distress CV: RRR, 2/6 systolic murmur, no edema respiratory: CTAB, no wheezing abdomen: soft, nontender extremity: normal appearance, no tenderness neuro/psych: alert, normal mood/affect Assessment/Plan: severe mitral regurgitation pulmonary hypertension HLD acute diastolic CHF Lasix home O2 eval Stable for DC home if cardiology agrees. MEGAN BOURGEOIS DO 03/07/218: Supervisory-Addendum Brief Verification & Attestation Participated in pt care: history, MDM, physical Personally performed: exam, history, MDM, supervision of care Care discussed with: Medical Student Procedures: n/a Results interpretation: Verified all documentation Verification and Attestation of Medical Student E/M Service A medical student performed and documented this service in my presence. I reviewed and verified all information documented by the medical student and made modifications to such information, when appropriate. I personally performed the physical exam and medical decision making. Megan Bourgeois, Mar 07, 2021,21:28 SHABBIR JAQUEZ MED STUDENT Mar 07, 2021 12:14 MEGAN BOURGEOIS DO Mar 07, 2021 21:28
--- NOTE | 2021-03-07 12:46 | Progress Note - Cardiology ---
Cardiology SOAP Progress Note Objective: I&O/Vital Signs 03/07/21 03/07/21 03/07/21 03/07/21 01:00 04:30 06:50 08:05 Temp 36.6 Pulse 86 92 86 Resp 20 B/P (MAP) 122/68 (86) Pulse Ox 91 O2 Delivery Nasal Cannula Nasal Cannula O2 Flow Rate 2.00 2.00 03/07/21 03/07/21 03/07/21 08:24 08:36 11:29 Temp 36.5 36.7 Pulse 91 88 Resp 18 18 B/P (MAP) 145/83 (103) 118/68 (85) Pulse Ox 95 95 94 O2 Delivery Nasal Cannula Nasal Cannula Nasal Cannula O2 Flow Rate 2.00 2.00 2.00 03/07/21 00:00 Intake Total 2240 ml Output Total 1750 ml Balance 490 ml Constitutional: AAO x 3, well-developed, well-nourished Respiratory: No accessory muscle use, No respiratory distress; chest expansion is symmetric, chest is bilaterally symmetric, other (good air entry) Cardiovascular: regular rate-rhythm; No JVD; S1 and S2, systolic murmur (3/6 HSM over entire precordium, radiating to the L axilla) Gastrointestional: No tender; soft, audible bowel sounds Extremities: no lower extremity edema bilateral Neurologic/Psychiatric: grossly intact (moves all extremities) Skin: No rash on exposed areas, No ulcerations on exposed areas Results/Procedures: Labs Laboratory Tests 03/07/21 06:35: White Blood Count 6.8, Red Blood Count 4.56, Hemoglobin 14.0, Hematocrit 44, Mean Corpuscular Volume 96, Mean Corpuscular Hemoglobin 31, Mean Corpuscular Hemoglobin Concent 32, Red Cell Distribution Width 13.0, Platelet Count 163, Mean Platelet Volume 11.8, Immature Granulocyte % (Auto) 0, Neutrophils (%) (Auto) 61, Lymphocytes (%) (Auto) 25, Monocytes (%) (Auto) 13H, Eosinophils (%) (Auto) 1, Basophils (%) (Auto) 0, Neutrophils # (Auto) 4.1, Lymphocytes # (Auto) 1.7, Monocytes # (Auto) 0.9, Eosinophils # (Auto) 0.1, Basophils # (Auto) 0.0, Immature Granulocyte # (Auto) 0.0, Sodium Level 133L, Potassium Level 3.8, Chloride Level 102, Carbon Dioxide Level 20L, Anion Gap 11, Blood Urea Nitrogen 9, Creatinine 0.70, Estimat Glomerular Filtration Rate 83, BUN/Creatinine Ratio 13, Glucose Level 98, Calcium Level 8.7, Corrected Calcium 9.0, Total Bilirubin 0.9, Aspartate Amino Transf (AST/SGOT) 20, Alanine Aminotransferase (ALT/SGPT) 22, Alkaline Phosphatase 81, Total Protein 6.7, Albumin 3.6 Laboratory Tests 03/06/21 06:30 03/07/21 06:35 A/P: Assessment: Acute diastolic congestive heart failure due to MVP and mod to sev mitral regurg - Echocardiogram of 03-06-[address] Lopez shows normal LVEF and mod to severe mitral regurg and pulm htn with PASP approx 60 mmHg Sinus tachycardia, likely due to CHF, improved Mixed hyperlipidemia, treated with statin Plan: I interviewed and examined her and reviewed her records Ambulate in halls Change IV diuretics to oral Discussed her CV status with her in detail and questions answered She has chronic f/u on her MVP and mitral regurg at [facility] in . We advise f/u with her classroom instructor at [facility] following discharge JOHN COYNE MD [facility] Mar 07, 2021 12:46
[2021-03-07] MEDS ORDERED: KCL 10 MEQ TAB (MICRO K) PO NR (12:49)
[2021-03-07] MEDS ORDERED: POTA40LI3 PO (13:46)
[2021-03-07] MEDS ORDERED: FURO40TA4 PO (13:46)
--- NOTE | 2021-03-07 13:47 | Discharge Summary ---
Discharge Summary Hospital Course Was the Problem List Reviewed?: Yes Problems/Dx: (1) Acute diastolic congestive heart failure (2) Pulmonary hypertension (3) Mitral regurgitation (4) Mixed hyperlipidemia (5) Dyspnea Status: Acute Qualifiers: Qualified Codes: R06.00 - Dyspnea, unspecified (6) Elevated d-dimer Status: Acute (7) Sinus tachycardia Status: Acute Hospital Course Date of Admission: Mar 06, 2021 at 10:23 Admission Diagnosis : Family Physician/Provider: Jean Rincon MD Date of Discharge: 03/07/21 Discharge Diagnosis: Congestive heart failure with volume overload, severe mitral regurgitation likely needs replacement Hospital Course: Hospital course: Pt did very well. She was admitted, placed on diuretics for CHF, oxygen supplement maintained. Cardiology consulted and evaluate the mitral regurgitation to be severe. Pt will have close follow up with her [facility] worker well service for a mitral valve replacement and she was deemed stable for DC. Labs and Pending Lab Test: Laboratory Tests 03/07/21 06:35: White Blood Count 6.8, Red Blood Count 4.56, Hemoglobin 14.0, Hematocrit 44, Mean Corpuscular Volume 96, Mean Corpuscular Hemoglobin 31, Mean Corpuscular Hemoglobin Concent 32, Red Cell Distribution Width 13.0, Platelet Count 163, Mean Platelet Volume 11.8, Immature Granulocyte % (Auto) 0, Neutrophils (%) (Auto) 61, Lymphocytes (%) (Auto) 25, Monocytes (%) (Auto) 13H, Eosinophils (%) (Auto) 1, Basophils (%) (Auto) 0, Neutrophils # (Auto) 4.1, Lymphocytes # (Auto) 1.7, Monocytes # (Auto) 0.9, Eosinophils # (Auto) 0.1, Basophils # (Auto) 0.0, Immature Granulocyte # (Auto) 0.0, Sodium Level 133L, Potassium Level 3.8, Chloride Level 102, Carbon Dioxide Level 20L, Anion Gap 11, Blood Urea Nitrogen 9, Creatinine 0.70, Estimat Glomerular Filtration Rate 83, BUN/Creatinine Ratio 13, Glucose Level 98, Calcium Level 8.7, Corrected Calcium 9.0, Total Bilirubin 0.9, Aspartate Amino Transf (AST/SGOT) 20, Alanine Aminotransferase (ALT/SGPT) 22, Alkaline Phosphatase 81, Total Protein 6.7, Albumin 3.6 Home Meds Active Potassium Chloride 40 Meq/15 Ml Liquid 10 Meq PO DAILY Furosemide 40 Mg Tablet 40 Mg PO DAILY Reported Ibuprofen 100 Mg Tab.chew 200 Mg PO Q8H PRN Vitamin C (Ascorbic Acid) 250 Mg Tab.chew 250 Mg PO DAILY Citracal Soft Chew (Ca Carbonate/Vitamin D3/Vit K) 1 Each Tab.chew 1 Each PO DAILY Vitamin D3 (Cholecalciferol (Vitamin D3)) 50 Mcg Tab.chew 50 Mcg PO DAILY Coq10 (Ubidecarenone) 50 Mg Tab.chew 50 Mg PO DAILY Women's Multivitamin Gummies (Folic Acid/Multivit-Minerals) 200 Mcg Tab.chew 200 Mcg PO DAILY Fluticasone Propionate 16 Gm [place].susp 1 [place] NSEACH DAILY Atorvastatin Calcium 20 Mg Tablet 20 Mg PO HS Ciclopirox (Ciclopirox Olamine) 15 Gm Cream..g. 1 Applic TOP BID APPLY TO TOENAILS Amoxicillin 400 Mg/5 Ml Susp.recon 9 Ml PO Q12H FILLED 03-03-2021 #150ML/7 DAY SUPPLY Assessment/Pt Instructions [facility] cardiology Discharge Planning: <30 minutes discharge planning Discharge Instructions Discharge Diet: Low Sodium Diet Discharge Physical Examination Vital Signs Vital Signs Date Time Temp Pulse Resp B/P (MAP) Pulse Ox O2 Delivery O2 Flow Rate FiO2 03/07/21 13:11 115 96 2.00 85 03/07/21 11:29 36.7 18 118/68 (85) Nasal Cannula General Appearance: No Apparent Distress, WD/WN Respiratory: Lungs Clear Cardiovascular: Regular Rate, Rhythm Allergies: Coded Allergies: amoxicillin (Verified Allergy, Unknown, 03/06/21) clavulanic acid (Verified Allergy, Unknown, 03/06/21) Discharge Summary Date of Admission Mar 06, 2021 at 10:23 Date of Discharge Discharge Date: Mar 07, 2021 Admission Diagnosis Assessment: New onset congestive heart failure Severe mitral valve regurgitation with history of mitral valve prolapse managed at [facility] Hyperlipidemia Plan: Cardiology consultation is appreciated Echocardiogram Monitor labs Diuresis Discharge Diagnosis (1) Acute diastolic congestive heart failure (2) Pulmonary hypertension (3) Mitral regurgitation (4) Mixed hyperlipidemia (5) Dyspnea Status: Acute Qualifiers: Qualified Codes: R06.00 - Dyspnea, unspecified (6) Elevated d-dimer Status: Acute (7) Sinus tachycardia Status: Acute ILENE BOURGEOIS DO Mar 07, 2021 13:47
[2021-03-08] MEDS ORDERED: KCL 10 MEQ TAB (MICRO K) PO SCH (07:00)
[2021-03-08] MEDS ORDERED: FUROSEMIDE 40 MG (LASIX) TAB PO SCH (09:00)
== END 2021-03-07 16:00 | disposition home or self-care (01) ==
LOC: ER FS 06:14 → 4TH 10:23
PROVIDERS: ADMIT Internal Medicine; ATTEND Internal Medicine
DX: I50.31 Acute diastolic (congestive) heart failure (principal); I27.20 Pulmonary hypertension, unspecified; I34.1 Nonrheumatic mitral (valve) prolapse; I34.0 Nonrheumatic mitral (valve) insufficiency; R00.0 Tachycardia, unspecified; R79.1 Abnormal coagulation profile; E78.2 Mixed hyperlipidemia; Z79.899 Other long term (current) drug therapy
CPT/HCPCS: 36415; 71045; 71046; 71275; 80053 ×2; 83605; 83735; 83880; 84484; 85025 ×2; 85379; 93005; 93306; 94761; 96372; 96374; 96375; 99284; G0378

== ENCOUNTER 2021-04-12 05:56 | Emergency (ER) | payer MEDICARE, OTHER ==
[~2021-04-12 05:56] MED LIST: AMOX400S9 PO; ASCO250T17 PO; ATOR20TA66 PO; CA C1TAB79 PO; CHOL200078 PO; CICL15CR11 TOP; FLUT16SP22 NSEACH; FOLI200T11 PO; FURO40TA4 PO; IBUP100T74 PO; POTA40LI3 PO; UBID50TA3 PO
--- OUTSIDE RECORDS SUMMARY | 2021-04-12 06:02 | XMS REPORT | Clinical Summary ---
Author Author [facility] Organization [facility] Address Unknown Phone Unavailable Care Team Providers Care Manufacturer Name Role Phone Self, Jean ROUSE PCP Allergies Comments Active Allergy Reactions Severity Noted Date Can take Amoxicillin but not amoxicillin-pot clavulante or Augmentin per patient. Amoxicillin-Pot Nausea And Low 10/23/2014 Clavulanate Vomiting Medications End Date Status Medication Sig Dispensed Refills Start Date Active fluticasone (FLONASE) 50 spray 1 spray 1 0 mcg/actuation nasal spray by intranasal 5 route every day in each nostril Additional Information Patient taking differently: As needed, Reported on 02/24/2019 Active ibuprofen (ADVIL,MOTRIN) take 1 tablet 90 0 200 MG tablet (200MG) by 2 oral route every 6 hours as needed with food Active calcium phosphate-vitamin Chew 1 tablet 0 10/15 D3 250 mg calcium- 500 daily. 8 unit Chew Active cholecalciferol, vitamin Take by mouth 0 10/25 D3, (VITAMIN D3 ORAL) daily. 8 Active coenzyme Q10 200 mg Take 200 mg 0 capsule by mouth 7 daily. Active multivit-min/folic Take by mouth 0 acid/fza873 (ALIVE daily. 7 WOMEN'S GUMMY VITAMINS ORAL) Active ascorbic acid (VITAMIN C) Take 500 mg 0 500 mg tablet by mouth daily. Active ciclopirox (LOPROX) 0.77 APPLY CREAM 0 02/12 / % cream TOPICALLY 1 TWICE DAILY TO TOENAILS FOR 30 DAYS Active atorvastatin (LIPITOR) 20 Take 1 tablet 90 tablet 3 03/13/ MG tablet (20 mg total) 1 by mouth daily. Active spironolactone Take 0.5 45 tablet 3 (ALDACTONE) 25 MG tablet tablets (12.5 1 mg total) by mouth daily. Active acetaminophen (TYLENOL) Take 500 mg 0 500 MG tablet by mouth every 6 (six) hours as needed for pain. Active caRVEDILoL (COREG) 3.125 Take 1 tablet 180 tablet 3 MG tablet (3.125 mg 1 total) by mouth 2 (two) times a day with meals. Active furosemide (LASIX) 40 MG Take 1 tablet 90 tablet 3 tablet (40 mg total) 1 by mouth daily. Active potassium chloride Take 3.8 mL 342 mL 1 02 (KAYCIEL) 20 mEq/15 mL (5.0667 mEq 1 solution total) by mouth daily. 04/11/2021 Discontinued (Reorder) potassium chloride Take 3.8 mL 3.8 mL 1 02 (KAYCIEL) 20 mEq/15 mL (5.0667 mEq 1 solution total) by mouth daily. 04/03/2021 Discontinued (Reorder) furosemide (LASIX) 40 MG Take 1 tablet 30 tablet 11 tablet (40 mg total) 1 by mouth daily. Active Problems Problem Noted Date Abnormal screening CT of chest 01/12/2018 Agatston CAC score 100-199 09/24/2017 Overview: Formatting of this note might be differ ent from the original. Total Agatston Score: 165 (CT: Luis Benites, OLIVIER) Mitral valve prolapse 12/19/2015 Overview: Formatting of this note might be differ ent from the original. 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 Eccentric jet of moderate (2+) regurgitation Primary osteoarthritis of right knee 07/09/2015 Heart palpitations Mixed hyperlipidemia Raynaud's disease Coronary artery calcification of levelock artery Mitral valve regurgitation Tricuspid valve regurgitation Pulmonary HTN Resolved Problems Problem Noted Date Resolved Date Acute cystitis without hematuria 01/07/201803/11 Moderate mitral regurgitation 01/09/2017 03/11/20 21 Agatston CAC score 100-199 06/11/2012 01/12/2018 Overview: Formatting of this note might be differ ent from the original. Total Agatston Score: 165 (CT: Luis Benites, OLIVIER) Mixed hyperlipidemia 02/23/2019 Shortness of breath 03/11/2021 Encounters Care Team Description Date Type Specialty Aleyda, MILTON Jeff TMVR Referral 04/05/2021 Telephone Valve and Vascular Lloyd Carrera MD Agatston CAC score 100-199 (Primary Dx); Heart palpitations; Mitral valve prolapse; Nonrheumatic mitral valve regurgitation; Mixed hyperlipidemia 04/03/2021 Office Visit Cardiology Lloyd Carrera MD 04/03/2021 Documentation Cardiology Lauren Mireles RN Cardiology test results 04/02/2021 Telephone Cardiology Debbie Cadet RN 03/29/2021 Abstract Cardiology Alon Ba MD Hassan, Yasser, MD 03/27/2021 Anesthesia Cardiology Event Lloyd Carrera MD Mitral valve prolapse; Heart palpitations; Agatston CAC score 100-199; Mitral valve insufficiency, unspecified etiology 03/27/2021 [facility] Cardiothoracic Surg ledy Encounter Kristyn Whitfield RN Returning patient call 03/22/2021 Telephone Cardiology Dede Barone RN 03/20/2021 Orders for Cardiology [facility] Kristyn Whitfield RN Cardiology test results 03/20/2021 Telephone Cardiology Kristyn De Jesus RN Procedure Instructions (CANDELARIA ) 03/19/2021 Telephone Cardiology Lloyd Carrera MD Mitral valve prolapse; Heart palpitations; Agatston CAC score 100-199; Mitral valve insufficiency, unspecified etiology 03/13/2021 Hospital Radiology Encounter Lloyd Carrera MD Mitral valve prolapse (Primary Dx); Heart palpitations; Agatston CAC score 100-199; Mitral valve insufficiency, unspecified etiology 03/13/2021 Office Visit Cardiology Azra Hemphill RN Medication questions 03/13/2021 Telephone Cardiology Sandra Sol RN 03/11/2021 Abstract Cardiology Lloyd Carrera MD 03/08/2021 Documentation Cardiology from Last 3 Months Immunizations Name Administration Dates Next Due Moderna Sars-cov-2 10/30/2020, 09/29/2020 Family History Medical History Relation Name Comments Hyperlipidemia Brother Hyperlipidemia Brother Hypertension Brother Cancer Father Abdominal Hypertension Father Hypertension Mother Relation Name Status Comments Brother Alive Brother Alive Father Cause of was Cancer at age 70. (Age 70) Mother Social History Date Tobacco Use Types Packs/Day Years Used Never Smoker Smokeless Tobacco: Never Used Comments Alcohol Use Standard Drinks/Week 1 drink monthly on average Yes 0 (1 standard drink = 0.6 o z pure alcohol) Sex Assigned at Date Recorded Female 03/31/2021 7:46 PM CDT Last Filed Vital Signs Reading Time Taken Comments Vital Sign 138/82 04/03/2021 9:14 AM CDT Blood Pressure 90 04/03/2021 9:14 AM CDT Pulse 36.4 C (97.6 F) 03/27/2021 8:40 AM CDT Temperature 18 03/27/2021 9:10 AM CDT Respiratory Rate 92% 03/27/2021 9:10 AM CDT Oxygen Saturation - - Inhaled Oxygen Concentration 56.7 kg (125 lb) 04/03/2021 9:14 AM CDT Weight 162.6 cm (5' 4") 04/03/2021 9:14 AM CDT Height 21.46 04/03/2021 9:14 AM CDT Body Mass Index Plan of Treatment Care Team Description Date Type Specialty Mike Steve MD [address] [facility] [address] [place] [address] [phone] 05/03/2021 Appointment Cardiology 05/03/2021 Appointment [place] [address] [facility] [address] [place] [address] [phone] 06/10/2021 Office Visit Cardiology Health Maintenance Due Date Last Done Comments Advance Directive has 1950 been filed Hepatitis C Screen 1950 Medicare Annual Wellness 1950 Td/Tdap# 1950 Colorectal Screening via 10/20/2001 Colonoscopy Mammogram Screening 10/20/2001 Zoster Vaccine# (1 of 2) 10/20/2001 Advance Directive 10/20/2016 Conversation Depression Screening 10/20/2016 PHQ-9 # Fall Risk Assessment # 10/20/2016 Osteoporosis Screening 10/20/2016 Patient Needs Advance 10/20/2016 Directive Influenza Vaccine (#1) 2021 05/18/2020, 05/18/2020, 05/19/2019, Additional history exists Pneumococcal Vaccine: 65+ Completed 05/21/2017 Years COVID-19 Vaccine Completed 10/30/2020, 09/29/2020 Procedures Comments Procedure Name Priority Date/Time Associated Diag nosis ECHO TRANSESOPHAGEAL WITH Routine 03/27/2021 Mitr al valve prolapse COLOR FLOW AND DOPPLER 9:02 AM CDT Heart palpitat ions Agatston CAC score 100-199 Mitral valve insufficiency, unspecified etiology COMPREHENSIVE METABOLIC Routine 03/20/2021 Mitral valve prolapse PANEL Heart palpitations Agatston CAC score 100-199 Mitral valve insufficiency, unspecified etiology CBC AND DIFF (MANUAL DIFF Routine 03/20/2021 Mitr al valve prolapse IF NECESSARY) Heart palpitations Agatston CAC score 100-199 Mitral valve insufficiency, unspecified etiology XR CHEST 2 VIEWS (PA AND Routine 03/13/2021 [place] valve prolapse LATERAL) 3:45 PM CDT Heart palpitations Agatston CAC score 100-199 Mitral valve insufficiency, unspecified etiology ECG Routine 03/13/2021 Mitral valve pr olapse 2:34 PM CDT Heart palpitations XR OUTSIDE RECORD Routine 03/07/2021 EKG OUTSIDE RECORD Routine 03/06/2021 ECHO OUTSIDE RECORD Routine 03/06/2021 XR OUTSIDE RECORD Routine 03/06/2021 CT OUTSIDE RECORD Routine 03/06/2021 XR OUTSIDE RECORD Routine 03/06/2021 from Last 3 Months Results * Echo Transesophageal with Doppler and Color Flow (03/27/2021 9:02 AM CDT) Valve Disease Moderate to severe aortic % PROS OLV stenosis Severe mitral regurgitation Specimen Impressions Performed At 1. Normal left ventricular systolic function, wi th an estimated ejection PROSOLV fraction of 65%. 2. Normal right ventricular size a nd systolic function. 3. Mitral valve prolapse with part ially flail posterior leaflet (P2 segment) and severe eccentric anterio r directed jet of mitral regurgitation. ERO = 0.7cm2 RV=8 5 ml. Mean gradient = 3 mmHg. 4. Elevated pulmonary artery press ure of at least 52 mmHg. 5. No evidence of a PFO based on a saline contrast study. Kate Chance M.D. 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 Informed consent was obtained. The procedure was performed in the P ACU. The patient was sedated with propofol by the anesthesia service. T he CANDELARIA probe was passed w ithout difficulty. The patient tolerated the procedure and the probe w as withdrawn. BP: 138 / 96 HR: 89 Ht: 64 Wt: 126 BSA 1.61 m2 : Measurements MITRAL VALVE DOPPLER MV Peak Gradient 6 mmHg MV Mean Gradient 3 mmHg TRICUSPID VALVE DOPPLER RV Systolic Pressure 51.5 mmHg DARCY Thrombus: None Interatrial septum: Normal DARCY Emptying Velocity: >60 Descending Aortic plaque:Normal LA spontaneous echo No ne Aortic arch plaque: Normal contrast: R to L shunt at atrial septum:None Rhythm: Sinus Moderate to severe aortic stenosis Severe mitral regurgitation WALL SEGMENT ANALYSIS: ROUTINE LVSI : 1 %FM : 100 LAD : 1 LCX : 1 RCA : 1 FINDINGS Normal left ventricular systolic f unction, with an estimated ejection fraction of 65%. Wall thickness appears normal. Normal dimensions of the ascending aorta. Normal wall motion. Normal left ventricular dimensions . Normal right ventricular size and systolic function. Normal right atrial size. Left atr ial dilatation. Normal aortic valve without regurg itation. Posterior mitral annular calcifica tion. Mitral valve prolapse with partially flail posterior leaflet (P2 s egment). Severe eccentric anterior directed mitral regurgitation jet (PISA at least 1.1) . Mean gradient = 3 mmHg @ HR = 89 bpm Normal pulmonic valve with trivial regurgitation. Normal tricuspid valve with mild r egurgitation. Estimated PA pressure = 52 mmHg. No pericardial effusion. No thrombus seen in the left atria l appendage. Interatrial septum is intact. No evidence for right to left shun ting, following an injection of agitated saline. Normal atherosclerotic plaque in t he descending aorta. No obvious intracardiac masses or thrombi. Procedure Note Interface, External Ris In - 03/27/2021 12:58 PM CDT Transesophageal Echocardiogram Report Name: JOYCE GIPSON Date: 03/27/2021 08:02 Chart #: [id number] : 1950 Gender F Location: [facility] Sono: lgorman : Age: 70 Room #: [id number] Referring: LLOYD CARRERA Fellow: Procedure: ECHO TRANSESOPHAGEAL WITH COLOR FLOW AND DOPPLER Indication:Mitral valve prolapse; Heart palpitations; Mitral valve insufficiency, unspecified etiology; Agatston CAC score 100-199 Procedure: The patient was kept NPO after midnight. Informed consent was obtained. The procedure was performed in the PACU. The patient was sedated with propofol by the anesthesia service. The CANDELARIA probe was passed without difficulty. The patient tolerated the procedure and the probe was withdrawn. BP: 138 / 96 HR: 89 Ht: 64 Wt: 126 BSA 1.61 m2 : Measurements MITRAL VALVE DOPPLER MV Peak Gradient 6 mmHg MV Mean Gradient 3 mmHg TRICUSPID VALVE DOPPLER RV Systolic Pressure 51.5 mmHg DARCY Thrombus: None Interatrial septum: Normal DARCY Emptying Velocity: >60 Descending Aortic plaque:Normal LA spontaneous echo None Aortic arch plaque: Normal contrast: R to L shunt at atrial septum:None Rhythm: Sinus Moderate to severe aortic stenosis Severe mitral regurgitation WALL SEGMENT ANALYSIS: ROUTINE LVSI : 1 %FM : 100 LAD : 1 LCX : 1 RCA : 1 FINDINGS Normal left ventricular systolic function, with an estimated ejection fraction of 65%. Wall thickness appears normal. Normal dimensions of the ascending aorta. Normal wall motion. Normal left ventricular dimensions. Normal right ventricular size and systolic function. Normal right atrial size. Left atrial dilatation. Normal aortic valve without regurgitation. Posterior mitral annular calcification. Mitral valve prolapse with partially flail posterior leaflet (P2 segment). Severe eccentric anterior directed mitral regurgitation jet (PISA at least 1.1) . Mean gradient = 3 mmHg @ HR = 89 bpm Normal pulmonic valve with trivial regurgitation. Normal tricuspid valve with mild regurgitation. Estimated PA pressure = 52 mmHg. No pericardial effusion. No thrombus seen in the left atrial appendage. Interatrial septum is intact. No evidence for right to left shunting, following an injection of agitated saline. Normal atherosclerotic plaque in the descending aorta. No obvious intracardiac masses or thrombi. IMPRESSION 1. Normal left ventricular systolic function, with an estimated ejection fraction of 65%. 2. Normal right ventricular size and systolic function. 3. Mitral valve prolapse with partially flail posterior leaflet (P2 segment) and severe eccentric anterior directed jet of mitral regurgitation. ERO = 0.7cm2 RV=85 ml. Mean gradient = 3 mmHg. 4. Elevated pulmonary artery pressure of at least 52 mmHg. 5. No evidence of a PFO based on a saline contrast study. Kate Chance M.D. (Electronically Signed) Final Date: 27 March 2021 12:58 Performing Organization Address City/[facility]/ZIP Code P rocky Number [facility] * Comprehensive Metabolic Panel (03/20/2021) Alk Phos Total 91 37 - 153 EXTERNAL LAB Albumin Serum 4.6 3.6 - 5.1 EXTERNAL LAB Calcium 10.0 8.6 - 10.4 mg/dL EXTERNAL LAB Glucose 82 65 - 99 mg/dL EXTERNAL LAB Blood Urea 13 7 - 25 mg/dL EXTERNAL LAB Nitrogen Protein Total 7.6 6.1 - 8.1 g/dL EXTERNAL LAB Serum Bilirubin Total 0.6 0.2 - 1.2 mg/dL EXTERNAL LAB Aspartate 20 10 - 35 U/L EXTERNAL LAB Aminotransferas e Potassium 4.6 3.5 - 5.3 mmol/L EXTERNAL LAB Sodium 135 134 - 146 mmol/L EXTERNAL LAB Chloride 99 98 - 110 mmol/L EXTERNAL LAB Creatinine 0.9 0.5 - 1.0 mg/dL EXTERNAL LAB Alanine 24 6 - 29 U/L EXTERNAL LAB Aminotransferas e Carbon Dioxide 26 20 - 32 mmol/L EXTERNAL LAB Globulin, Total 3.0 1.9 - 3.7 EXTERNAL LAB A/G Ratio 1.5 1.0 - 2.5 EXTERNAL LAB eGFR If 69 60 EXTERNAL LAB NonAfricn Am eGFR If Africn 80 60 EXTERNAL LAB Am Specimen Blood Performing Organization Address [facility]/ZIP Code P rocky Number EXTERNAL LAB * CBC and Diff (manual diff if necessary) (03/20/2021) RBC 5 3.8 - 5.1 EXTERNAL LAB WBC 5.3 3.8 - 10.8 EXTERNAL LAB Hemoglobin 15.0 11.7 - 15.5 g/dL EXTERNAL LAB Hematocrit 46 (A) 35 - 45 % EXTERNAL LAB MCV 92.6 80.0 - 100.0 fL EXTERNAL LAB MCH 30.0 27.0 - 33.0 pg EXTERNAL LAB MCHC 32 32 - 36 g/dL EXTERNAL LAB % Neutrophils 56 46 - 78 % EXTERNAL LAB %Lymphocytes 32 18 - 52 % EXTERNAL LAB % Monocytes 10 3 - 10 % EXTERNAL LAB %Eosinophils 1 0 - 6 % EXTERNAL LAB %Basophils 1 0 - 3 % EXTERNAL LAB Platelet Count 292 140 - 400 K/L EXTERNAL LAB # Granulocytes EXTERNAL LAB Neutrophils 2,979 1,500 - 7,800 EXTERNAL LAB Absolute # Lymphocytes 1,707.00 850.00 - 3,900.00 EXTERNAL LAB /L # Monocytes 504.00 200.00 - 950.00 /L EXTERNAL LAB # Eosinophils 69.00 15.00 - 500.00 /L EXTERNAL L AB # Basophils 42.00 0.00 - 200.00 /L EXTERNAL LA B RDW 13.0 11.0 - 15.0 % EXTERNAL LAB Specimen Blood Narrative Performed At This result has an attachment that is n ot available. Performing Organization Address City/State/ZIP Code P rocky Number EXTERNAL LAB * XR Chest 2 views (PA and lateral) (03/13/2021 3:45 PM CDT) Specimen Impressions Performed At Impression: There is mild thoracic kyphosis. This is unchanged since [facility] October 01, 2017. Lungs are hyperexpan ded consistent with COPD. This is unchanged. There are no superimposed ac felton pulmonary abnormalities. The heart is normal in size. The mediastinu m is not widened. Pulmonary vessels are within normal limits. There is no evidence of pleural effusion or pneumothorax. Narrative Performed At Patient: JOYCE GIPSON Sex#: F #: 1950 Derrek#: [id number] Location: [facility] [id number] Procedure Requested: [id number] XR CHEST 2 VIEWS (PA AND LATERAL) Reason for Exam: Mitral valve prolaps e Exam Ordered: 03/13/2021 15 39 Exam Date/Time: 03/13/2021 154 5 Begin exam date/time: 03/13/2021 154 0 XR CHEST 2 VIEWS (PA AND LATERAL), 03/13 3:45 PM Reason for Examination: Mitral valve pr olapse Heart palpitations Agatston CAC score 100-199 Mitral valve insufficiency, unspecified etiology . Chest pain. Procedure Note Interface, Rad Results In - 03/13/2021 3:57 PM CDT Patient: JOYCE GIPSON Sex#: F #: 1950 Derrek#: [id number] Location: [facility] XRAY Procedure Requested: [id number] XR CHEST 2 VIEWS (PA AND LATERAL) Reason for Exam: Mitral valve prolapse Exam Ordered: 03/13/2021 1539 Exam Date/Time: 03/13/2021 1545 Begin exam date/time: 03/13/2021 1540 XR CHEST 2 VIEWS (PA AND LATERAL), 03/13/2021 3:45 PM Reason for Examination: Mitral valve prolapse Heart palpitations Agatston CAC score 100-199 Mitral valve insufficiency, unspecified etiology . Chest pain. IMPRESSION Impression: There is mild thoracic kyphosis. This is unchanged since October 01, 2017. Lungs are hyperexpanded consistent with COPD. This is unchanged. There are no superimposed acute pulmonary abnormalities. The heart is normal in size. The mediastinum is not widened. Pulmonary vessels are within normal limits. There is no evidence of pleural effusion or pneumothorax. Performing Organization Address City/State/ZIP Code P rocky Number [facility] * Electrocardiogram (ECG) (03/13/2021 2:34 PM CDT) QRSd 92 [facility] QT 372 [facility] QTC 443 [facility] ECGHR 85 [facility] ECGPR 160 [facility]ER Specimen Narrative Performed At [facility] [place] Test Date: 2021-03-13 Pat Name: JOYCE GIPSON Department: [facility] Room: Gender: Female Inside Channel Account Manager: [id number] : 1950 Requested By: LLOYD CARRERA Order Number: [id number] Reading MD: Finn Cheatham Measurements Intervals Shelley Rate: 85 P: 71 NE: 160 QRS: 24 QRSD: 92 T: 47 QT: 372 QTc: 443 Interpretive Statements SINUS RHYTHM Electronically Signed On 04-02-2021 15:4 8:26 CDT by Finn Cheatham Procedure Note Interface, External Ris In - 04/02/2021 3:48 PM CDT [facility] Test Date: 2021-03-13 Pat Name: JOYCE GIPSON Department: [facility] Room: Gender: Female Inside Channel Account Manager: [id number] : 1950 Requested By: LLOYD CARRERA Order Number: [id number] Reading MD: Finn Cheatham Measurements Intervals Shelley Rate: 85 P: 71 NE: 160 QRS: 24 QRSD: 92 T: 47 QT: 372 QTc: 443 Interpretive Statements SINUS RHYTHM Electronically Signed On 04-02-2021 15:48:26 CDT by Finn Cheatham Performing Organization Address City/State/ZIP Code P rocky Number [facility] * XR Outside Record (03/07/2021) Only the most recent of 3 results within the time period is included. Specimen Narrative Performed At This result has an attachment that is n ot available. * EKG Outside Record (03/06/2021) Specimen Narrative Performed At This result has an attachment that is n ot available. * CT Outside Record (03/06/2021) Specimen Narrative Performed At This result has an attachment that is n ot available. * Echo Outside Record (03/06/2021) Ejection Fraction Specimen Impressions Performed At LV: normal size, mild concentric LVH. N ormal systolic function, EF 60-65%. No regional wall motion abnormalities. Fea tures are consistent with a pseudonormal LV filling pattern, with concomitant ab normal relaxation and increased fill pressure, grade 2 diastolic dysfunction . LA: mildly-moderately dilated at 4.9cm. RA: normal. RV: normal size and systoli c function. Aortic valve: normal structure, mild sclerosis, accelerated flow across the valve with mean gradient of 25 mmHg, peak gradient 46 mmHg, peak velocity of 3.4m/s with a calculated aortic valve area of 0.9cm2, mild aorti c valve regurg. Mitral valve: mildly calcified annulus, leaflets mildly thic kened, no stenosis, moderate-severe regurg. Tricuspid valve: moderate-sever e regurg. Pulmonic valve: trivial regurg. No pericardial effusion. Aortic root: n ormal. IVC: normal. PASP 65 mmHg. ([address] [place], [place]) Narrative Performed At This result has an attachment that is n ot available. from Last 3 Months Insurance Type Payer Benefit Subscriber ID Effective Phone Address Plan / Dates Group Medicare MEDICARE MEDICARE [id number] 2016-P [place] PART A B [place], [place] COMMERCIAL-NONCONTRACTED [facility] [id number] COMMERCIAL resent NONCONTRAC MIKKI 1 LeonelaJoyce Luis Personal/F Self 1950 [address]Home) [place] [id number] 1 Ad[address]ley [place] Luis Personal/F Self 1950 [address] (Home) [place] [address] 1 Advance Directives For more information, please contact: [phone] Patient Bobbin Washer Explanation Type Date Recorded Advance Directives and Living Will Power of Shank [facility] Care Directive
--- OUTSIDE RECORDS SUMMARY | 2021-04-12 06:02 | XMS REPORT | Encounter Summary ---
Author Author [facility] Organization [facility] Address Unknown Phone Unavailable Care Team Providers Care Manager Materials Management Name Role Phone Jean Rincon MD PCP Encounter Details Care Team Description Date Type Department Alon Ba MD [address] [place] [address] [phone] Meet Sandoval MD [address] [facility] [place] [address] [phone] 03/27/2021 Anesthesia [facility] al Event [address] [place], [place] [id number] Anesthesia Record Responsible Anesthesiologist Anesthesia Start Time Anesthesi a Stop Time Procedure Name Alon Ba MD 03/27/21 0807 03/27/21 0842 ECHO TRANSESOPHAGEAL WITH DOPPLER AND COLOR FLOW Date Time Event Comment 747 Anesthesia 2020 Initial Contact 0758 0807 AN Equip Check 0807 In room 0807 An Start 0807 An Start Data 0807 Pt eval immediately prior to anesthesia 0809 An Induction 0809 Oxygen per nasal cannula 0809 Patient Positioned Self 0809 Sedation begin 0811 Procedure start 0837 Procedure stop 0839 an stop data 0839 Out of Room 0842 Handoff I completed my SBAR handoff to the receiving nurse in the PACU/ICU/OB Patient and PACU/ICU/OB nurse identifie d Discussed patient medical history Discussed procedure Reviewed intraopera tive anesthetic management and issues/concerns Discussed expectation f or early post-procedure period Questions from PACU/ICU/OB team address ed 0842 An Stop Meds Name Total propofol 10mg/mL 60 mg propofol infusion 10mg/mL 181.61 mg lidocaine 1% (PF) 100 mg sodium chloride 0.9% 500 mL * Name Cell Saver Blood Intake O2 N2O Air EtSEVO EtISO EtDES EtN2O * No blood administrations on file. Removal Type Details Placement 03/27/21919 by Malou Dalton RN Peripheral Date: 03/27/21; Time: 075; Size 03/27 0755 by Malou IV (gauge): 20 G; Orientation: Right; Russ diggs RN Location: Hand; Site Prep: Chlorhexidine; Local Anesthetic: None; Insertion Attempts: 1; Inserted By: Dr. Ba; Removal Date: 03/27/21; Removal Time: 919 documented in this encounter Social History Date Tobacco Use Types Packs/Day Years Used Never Smoker Smokeless Tobacco: Never Used Comments Alcohol Use Standard Drinks/Week rarely Yes 0 (1 standard drink = 0.6 o z pure alcohol) Sex Assigned at Date Recorded Female 03/31/2021 7:46 PM CDT documented as of this encounter Miscellaneous Notes * Anesthesia Postprocedure Evaluation - Alon Ba MD - 03/27/2021 9:42 AM CDT Anesthesia Post Evaluation Procedure Summary Date: 03/27/21 Room / Location: [facility] Anesthesia Start: 806 Anesthesia Stop: 841 Procedure: ECHO TRANSESOPHAGEAL WITH DOPPLER AND COLOR FLOW Diagnosis: Mitral valve prolapse Heart palpitations Agatston CAC score 100-199 Mitral valve insufficiency, unspecified etiology Mitral valve prolapse Heart palpitations Agatston CAC score 100-199 Mitral valve insufficiency, unspecified etiology Scheduled Providers: Responsible Provider: Alon Ba MD Anesthesia Type: general ASA Status: 3 Patient Evaluated in: PACU Patient Participation: complete - patient participated Level of Consciousness: awake and alert Pain Score: 0, with adequate pain management. Airway Patency: patent Respiratory Status: room air and spontaneous ventilation Cardiovascular Status: hemodynamically stable Postoperative Hydration: euvolemic Postop Nausea/Vomiting: no PONV in PACU Multimodal analgesia not used for 6 hours prior to anesthesia start through PACU discharge. Anesthetic Complications: No Appropriate for discharge from anesthesia care, no apparent anesthesia related c omplication ANE Post Eval Vitals Most Recent Value BP (!) 118/100 filed at 03/27/2021 0910 Pulse 85 filed at 03/27/2021 0910 Temp 36.4 C (97.6 F) filed at 03/27/2021 0840 Resp 18 filed at 03/27/2021 0910 SpO2 92 % filed at 03/27/2021 0910 * Anesthesia Preprocedure Evaluation - Alon Ba MD - 03/27/2021 7:55 AM CDT Anesthesia Evaluation No history of anesthetic complications No history of alcohol use. Airway Mallampati: I TM distance: >3 FB Neck ROM: full Adequate mouth opening No prominent facial hair No mandibular prognathism past upper incisors. Dental Pulmonary Breath sounds clear to auscultation, (-) COPD, sleep apnea Cardiovascular Auscultated murmur Rhythm: regular Rate: normal (+) hyperlipidemia, shortness of breath, valvular problems/murmurs MR, , CHF, Neuro/Psych (-) altered mental status, CVA, TIA, neurological deficit GI/Hepatic/Renal (-) GERD, liver disease, no renal disease Endo/Other (-) diabetes mellitus, hypothyroidism Abdominal There is no height or weight on file to calculate BMI. Abdomen: soft. Obstetrics HEENT Musculoskeletal Hematology/Oncology (-) anemia and anticoagulant/antiplatelet therapy Anesthesia Plan ASA 3 Type: general () Plan to include: IV induction and spontaneous ventilation Plan discussed with attending and resident. Anesthetic plan including risks, benefits and alternatives was discussed with an d agreed to by the patient. Informed consent was obtained to proceed. Use of blood products discussed with patient whom consented to blood products. Recovery plan: PACU Risk factors for PONV: female PONV Risk: low Plan for PONV Prophylaxis to include: propofol infusion No COVID-19 Lab results in past 6 months. documented in this encounter Plan of Treatment Care Team Description Date Type Specialty Mike Steve MD [address] [facility] [address] [place] [address] [phone] 05/03/2021 Appointment Cardiology 05/03/2021 Appointment [place] [address] [facility] [address] [place] [address] [phone] 06/10/2021 Office Visit Cardiology documented as of this encounter Visit Diagnoses Not on filedocumented in this encounter Administered Medications Action Date Dose Rate Site Medication Order MAR Action 03/27/2021 8:20 AM CDT 100 mg lidocaine (pf) (XYLOCAINE-MPF) 10 mg/mL Given (1 %) injection Intravenous, As needed, Starting on Thu03/27/21 at 0820, Anesthesia Intra-op 03/27/2021 8:24 AM CDT 100 mcg/kg/min 34.32 mL/hr propofol (DIPRIVAN) infusion 10 mg/mL Rate/Dose Intravenous, Continuous PRN, Starting on Change Thu03/27/21 at 0809, Anesthesia Intra-o p 125 mcg/kg/min 42.9 mL/hr New Bag 03/27/2021 8:09 AM CDT 03/27/2021 8:09 AM CDT 60 mg propofoL (DIPRIVAN) injection Given Intravenous, As needed, Starting on Thu03/27/21 at 0809, Anesthesia Intra-op 03/27/2021 8:07 AM CDT sodium chloride 0.9% infusion New Bag Intravenous, Continuous PRN, Starting o n Thu03/27/21 at 0807, Anesthesia Intra-o p documented in this encounter
--- OUTSIDE RECORDS SUMMARY | 2021-04-12 06:02 | XMS REPORT | Clinical Summary ---
Author Author [facility] Organization [facility] Address Unknown Phone Unavailable Care Team Providers Care Pecan Gatherer Name Role Phone Self, Jean ROUSE PCP Source Comments Some departments are not documenting in the electronic medical record. If you d o not see the information that you expected, contact Release of Information in [facility] [employer] Information Management department at [phone] for further assistan ce in locating additional records.[facility] Allergies Comments Active Allergy Reactions Severity Noted Date Amoxicillin-Pot STOMACH UPSET Low 03/18/2018 Clavulanate Medications End Date Status Medication Sig Dispensed Refills Start Date Active atorvastatin (LIPITOR) 20 Take 20 mg by 0 mg tablet mouth daily. Active calcium phosphate Take by 0 trib/vit D3 (CALCIUM mouth daily. 8 PHOSPHATE-VITAMIN D3 PO) Active cholecalciferol (vitamin Take by 0 10/25 D3) 1,000 unit/drop drop mouth daily. 8 Active coenzyme Q10(+) 200 mg Take 200 mg 0 01/15/ 01 capsule by mouth 7 daily. Active fluticasone (FLONASE) 50 spray 1 spray 0 10/20 mcg/actuation nasal spray by intranasal 5 route every day in each nostril Active ibuprofen (ADVIL) 200 mg take 1 tablet 0 08/11 tablet (200MG) by 2 oral route every 6 hours as needed with food Active multivit-min/folic Take by 0 acid/lbh021 (ALIVE mouth daily. 7 WOMEN'S GUMMY VITAMINS PO) Active ascorbic acid (VITAMIN C) Take 500 mg 0 500 mg tablet by mouth. Active Problems Problem Noted Date Inversion of nipple 03/18/2018 Overview: Formatting of this note might be differ ent from the original. DIAGNOSIS: Right nipple inversion HISTORY: Ms. Gipson is a fe male who [facility] on 03[facility]18[facility]2018 at age 67 for evaluation of right nipple inversion. She first noted the inversio n 1 month ago. Outside imaging was negative. She denies any skin changes, palpable masses, or nipple discharge. Ms. Gipson had imaging at [facility] which showed no evidence of suspicious mass to be causing the nippl e inversion. She returned for screening mammogram and exam on 0. At that time the right nipple inversion had mildly worsened, but ther e were no changes mammographically. Clinical follow up was recommended and MRI could be ordered if indicated. Her clinical exam had not changed. Afte r further thought, proceeding with the MRI for evaluation of the inversion was recommended since we had not previously obtained a breast MRI. Breas t MRI on 09/05/20 () revealed linear nonmass enhancement in the right breast at 5-6:00 measuring 2.3 cm and could have faint enhancement extend ing to nipple. Ultrasound guided biopsy was recommended. Ms. Gipson ret urned for ultrasound on 09/11/20 which showed dilated ducts at 7:00 whic h were thought to correlate with MRI finding and biopsy was performed. Right breast sono-guided biopsy 09/11/20 () pending. BREAST IMAGING: Mammogram: -- Right diagnostic mammogram 02/23/18 ( [place]) revealed scattered fibroglandular density. Multiple views of the right breast were obtained and demonstrated no dominant mass, susp icious grouped calcifications or architectural distortion. A skin mole w as again identified about the upper right breast. -- Right diagnostic mammogram 03/18/18 ([place]) revealed scattered fibroglandular densities. No suspicious mass, suspicio us calcifications, or architectural distortion was seen within the right br east. Same-day targeted right breast ultrasound will be obtained. -- Right screening mammogram 07/16/20 ( ) revealed right nipple inversion had mildly progressed mammographically. There were no new suspicious masses, calcifications, or areas of arc hitectural distortion. There was no significant change when compared with p rior mammograms. Clinical correlation of the right breast. Prio r diagnostic evaluation demonstrated no suspicious abnormality. If there was clinical concern, a palpable area of concern, or right nipple discharge, MRI could be performed for further evaluation. Routine screening mammogram of both breasts in 1 year. Ultrasound: -- Targeted right breast ultrasound 02/14 ([place]) revealed no solid or cystic abnormality. Mild dilated ret roareolar duct was present. -- Targeted right breast ultrasound 03/18 () revealed no suspicious intraductal ductal mass or other suspic ious sonographic abnormality was seen. Nipple inversion was related to b enign chronic duct ectasia. -- Targeted right breast ultrasound 08/18 02/04 () revealed duct ectasia within the lower right breast at 7:00, which appeared contiguous with abnormal appearing dilated ducts at 7:0 0, 3 cm from the nipple. This was felt to correlate with the abnormal lesvia ear non mass enhancement on MRI within the lower, slightly outer right breast, and will undergo ultrasound-guided biopsy today. No morp hologically suspicious right axillary lymph nodes were seen. 3 morph ologically normal-appearing right axillary lymph nodes were documented. MRI: -- Breast MRI 09/05/20 () revealed LEF T BREAST: There was no area of suspicious enhancement in the left [address]. No adenopathy, skin or nipple abnormalities were identified. RIGHT BR EAST: Within the inferior right breast at approximately 5-6:00 2-3 cm f rom the nipple, there was some linear nonmass enhancement which is bra nching neck communicates with a dilated duct. This was at the inferior aspect of the dilated ductal system. This area measured 2.3 cm AP by 1.5 cm transverse and was seen on the thin MIPS images 27-29. This was suspicious and biopsy was recommended. If this james malignancy, there was some faint er nonmass enhancement which extended up to the nipple. INCIDENTAL F INDINGS: None. IMPRESSION:1. Right breast linear nonmass enhancement withi n the inferior ducts. Ultrasound with intent to biopsy was recommended. 2. No MRI evidence of left breast cancer. REPRODUCTIVE HEALTH: Age at first Menarche: [age] Age at First Live : 31 Age at Menopause: postmenopasual : 3 Para: 1 : Yes PERTINENT PMH: HLD, mitral valve prola pse FAMILY HISTORY: Patient denies a family history of breast, ovarian, or prostate cancers PHYSICAL EXAM on PRESENTATION: Right - No palpable breast masses. No skin or areolar change. Nipple inverted. Lef t - No palpable breast masses. No skin, nipple, or areolar change. No sup raclavicular or axillary adenopathy. REFERRED BY: Dr. Pena Self Immunizations Name Administration Dates Next Due Flu Vaccine =>4 YO 05/21/2017, 06/09/2016, , 06/01/2013, (Historical) 05/15/2009 H1N1 Vaccine 06/01/2012, 06/07/2009 Pneumococcal Vaccine 05/21/2017 (23-[place] Adult) Td Vaccine 12/12/2010, 02/26/2004 Varicella-Zoster Vaccine 04/20/2014 - live (ZOSTAVAX) Surgical History Surgery Date Site/Laterality Comments COLONOSCOPY HX TUBAL LIGATION 08/17/1985 - 08/16/1986 HX KNEE ARTHROSCOPY 08/17/1998 - 08/16/1999 Medical History Medical History Date Comments Arthritis Heart disease Osteoporosis High cholesterol Mitral valve prolapse Family History Medical History Relation Name Comments Asthma Brother High Cholesterol Brother Hypertension Brother Cancer Father Hypertension Father Heart Disease Maternal Aunt High Cholesterol Maternal Aunt Cancer Maternal Grandmother Diabetes Maternal Grandmother Heart Disease Maternal Uncle Hypertension Mother Depression Paternal Grandfather Heart Disease Paternal Grandfather Relation Name Status Comments Brother Father Maternal Aunt Maternal Grandmother Maternal Uncle Mother Paternal Grandfather Social History Date Tobacco Use Types Packs/Day Years Used Never Smoker Smokeless Tobacco: Never Used Comments Alcohol Use Standard Drinks/Week 1/monthly Yes 0 (1 standard drink = 0.6 o z pure alcohol) Sex Assigned at Date Recorded Female 07/15/2020 1:51 PM HARD CANDY BATCH MIXER Last Filed Vital Signs Reading Time Taken Comments Vital Sign 123/75 07/16/2020 1:16 PM HARD CANDY BATCH MIXER Blood Pressure 74 07/16/2020 1:16 PM HARD CANDY BATCH MIXER Pulse 36.9 C (98.4 F) 07/16/2020 1:16 PM HARD CANDY BATCH MIXER Temperature 16 07/16/2020 1:16 PM HARD CANDY BATCH MIXER Respiratory Rate 98% 07/16/2020 1:16 PM HARD CANDY BATCH MIXER Oxygen Saturation - - Inhaled Oxygen Concentration 56.7 kg (125 lb) 09/04/2020 11:55 AM HARD CANDY BATCH MIXER Weight 162.6 cm (5' 4") 09/04/2020 11:55 AM HARD CANDY BATCH MIXER Height 21.46 09/04/2020 11:55 AM HARD CANDY BATCH MIXER Body Mass Index Plan of Treatment Health Maintenance Due Date Last Done Comments MEDICARE ANNUAL WELLNESS 1950 VISIT HEPATITIS C SCREENING 10/20/1969 PHYSICAL (COMPREHENSIVE) 10/20/1969 EXAM COLORECTAL CANCER 10/20/2001 SCREENING DTAP/TDAP VACCINES (1 - 12/13/2010 12/12/2010, Tdap) 02/26/2004 OSTEOPOROSIS 10/20/2016 SCREENING/MONITORING SHINGLES RECOMBINANT 09/14/2020 07/20/2020 VACCINE (2 of 2) INFLUENZA VACCINE 05/17/2021 05/19/2019, 05/21/2017, 06/09/2016, Additional history exists BREAST CANCER SCREENING 07/16/2021 07/16/2020, 07/11/2019, 07/29/2018 PNEUMONIA (PPSV23) Completed 05/21/2017 VACCINE Implants Device Identifier Shelf Expiration Date Model / Serial / L ot Implanted Type Area Manufactur er [id number] 04/25/2023 4009-10-01-[id number] / NA / [id number] Marker Breast Biopsy Hydromark Breast DEVICO R Titanium 15g - Sna MEDICAL Implanted: Qty: 1 on 09/11/2020 by [employer]ODU[employer] Rica Bennett MD at [facility] Audio Results Not on filefrom Last 3 Months Insurance Type Payer Benefit Subscriber ID Effective Phone Address Plan / Dates Group Medicare MEDICARE MEDICARE [id number] 2016-P PART A AND resent B Indemnity GENERIC COMMERCIAL GENERIC [id number] 2016-P COMMERCIAL resent [phone] Advance Directives Patient Process Engineering Manager Explanation Type Date Recorded Advance Directive/DPOA
--- OUTSIDE RECORDS SUMMARY | 2021-04-12 06:02 | XMS REPORT | Encounter Summary ---
Author Author [facility] Organization [facility] Address Unknown Phone Unavailable Care Team Providers Care Fiberglass Ski Maker Name Role Phone Self, Jean ROUSE PCP Encounter Details Care Team Description Date [place] [address] [place] [address] [phone] 04/03/2021 Documentation [facility] [address] [place] [address] Social History Date Tobacco Use Types Packs/Day Years Used Never Smoker Smokeless Tobacco: Never Used Comments Alcohol Use Standard Drinks/Week 1 drink monthly on average Yes 0 (1 standard drink = 0.6 o z pure alcohol) Sex Assigned at Date Recorded Female 03/31/2021 7:46 PM CDT documented as of this encounter Plan of Treatment Care Team Description Date Type Specialty Mike Steve MD [address] [facility] [address] [place] [address] [phone] 05/03/2021 Appointment Cardiology 05/03/2021 Appointment [place]ve [place] [address] [place] [address] [phone] 06/10/2021 Office Visit Cardiology documented as of this encounter Visit Diagnoses Not on filedocumented in this encounter
--- OUTSIDE RECORDS SUMMARY | 2021-04-12 06:02 | XMS REPORT | Encounter Summary ---
Author Author [facility] Organization [facility] Address Unknown Phone Unavailable Care Team Providers Care Ticket Puller Name Role Phone Self, Jean ROUES PCP Reason for Referral * Consultation (Urgent) Referred By Contact Referred To Contact Status Reason Specialty Diagnoses / [place] [address] [employer] [address] [place] [address] [facility] [address] [place] [address] Authorized Valve and Diagnoses Vascular Agatston CAC score 100-199 Heart palpitations Mitral valve prolapse Nonrheumatic mitral valve regurgitation Electronically signed by Lloyd Broderick MD at Reason for Visit * Reason Comments Valvular disease Follow-up on test results Encounter Details Care Team Description [place] [address] [employer] [address] [place] [address] Agatston CAC score 100-199 (Primary Dx); Heart palpitations; Mitral valve prolapse; Nonrheumatic mitral valve regurgitation; Mixed hyperlipidemia 04/03/2021 Office Visit [facility] [address] [facility] [address] [place] [address] Social History Date Tobacco Use Types Packs/Day Years Used Never Smoker Smokeless Tobacco: Never Used Comments Alcohol Use Standard Drinks/Week 1 drink monthly on average Yes 0 (1 standard drink = 0.6 o z pure alcohol) Sex Assigned at Date Recorded Female 03/31/2021 7:46 PM CDT documented as of this encounter Last Filed Vital Signs Reading Time Taken Comments Vital Sign 138/82 04/03/2021 9:14 AM CDT Blood Pressure 90 04/03/2021 9:14 AM CDT Pulse - - Temperature - - Respiratory Rate - - Oxygen Saturation - - Inhaled Oxygen Concentration 56.7 kg (125 lb) 04/03/2021 9:14 AM CDT Weight 162.6 cm (5' 4") 04/03/2021 9:14 AM CDT Height 21.46 04/03/2021 9:14 AM CDT Body Mass Index documented in this encounter Patient Instructions * Patient Instructions* Azra Hemphill RN - 04/03/2021 9:40 AM CDT Images from the original note were not included. Medication instructions: Start carvedilol 3.125 mg twice a day A referral has been place to: [facility], Dr Jame Sanchez. He will dis cuss treatment options at this visit. They will call you to schedule. If you start having dizziness or lightheadedness, feeling faint, increased short ness of breath or any concerning symptoms let us know Follow up with Dr. Broderick Please call the nurse line at [phone] with any questions or concerns. For medication refills, please call the pharmacy first For any [facility] scheduling questions call [phone] [facility], high quality patient care is our top priority. To ensure our cardio vascular standards are continually met, you may receive a survey via email or [employer] message, we will ask that you please take the time to fill it out. We strive to ensure you are satisfied with every visit. Thank you in advance for taking the time to fill this out. It was good to see you Azra Juarez RN and Sandoval INIGUEZ Understanding Heart Valves The heart has 4 valves. They are the aortic, pulmonary, tricuspid, and mitral va lves. The valves open and close to keep blood moving in the right direction thro ugh the heart. As the heart beats, blood moves through it. With each squeeze, th e valves open and close to keep blood moving forward. In this way, valves keep b lood moving as well as possible through the heart. When the heart relaxes between beats: Oxygen-rich blood from the lungs fills the left atrium. Oxygen-poor blood from the body fills the right atrium. When the atria beat: The left atrium squeezes, pushing blood through the mitral valve into the lef t ventricle. The right atrium squeezes, pushing blood through the tricuspid valve into the right ventricle. When the ventricles beat: The left ventricle squeezes, pushing blood through the aortic valve out to th e heart arteries, the brain, and body. The right ventricle squeezes, pushing blood through the pulmonary valve to th e lungs. [employer] last reviewed this educational content on 02/14/201919990349-6100 [employer]. All rights reserved. This information is not intended as a substitute for professional medical care. Always follow your healthcare professional's instructions. Heart Valve Problems: Mitral Valve Prolapse Mitral valve prolapseis the most common heart valve problem. With this conditi on, the valve that separates the left atrium and left ventricledoesnt open and close as it should. Extra tissue in the valve can stop it from closing prope rly. This can make the valve leaky. Most cases of mitral valve prolapse are not serious. Usually only a small amount of blood leaks backward. This doesn't cause problems and doesn't need treatment. But sometimes a larger amount of blood can leak backward. This can lead to a s erious problem as the blood that leaks backward must be pumped twice, which even tually takes a toll on the heart. You may need surgery to fix the valve if the h eart starts to function poorly. Prolapsed mitral valve viewed from top. Symptoms of mitral valve prolapse Mitral valve prolapse may not cause symptoms. If you do have symptoms, they may include: Mild chest pain Pounding or racing heart (palpitations) Shortness of breath when lying down Trouble breathing with activity Fatigue and lack of stamina Possible causes Mitral valve prolapse is often present from . But some people can develop i t later in life. In some cases, the condition is passed down from your parents ( inherited). Treating mitral valve prolapse Most people with mitral valve prolapse have mild disease that doesn't get worse. It doesn't need to be treated. But sometimes the valves get more stretched out over time and can cause symptoms. Medicines can help ease symptoms. Your doctor may ask you to come in from time to time for tests to check your hea rt valve and to be sure the problem hasnt gotten worse. In severe cases, surg aide to repair or replace the valve may be needed. [employer] last reviewed this educational content on 02/14/201919999866-1970 [employer]. All rights reserved. This information is not intended as a substitute for professional medical care. Always follow your healthcare professional's instructions. Coreg Oral Tablet 3.125 mg Uses This medicine is used for the following purposes: heart attack heart failure high blood pressure irregular heart beat Instructions Take the medicine with food. It is very important that you take the medicine at about the same time every day . It will work best if you do this. Keep the medicine at room temperature. Avoid heat and direct light. It is important that you keep taking each dose of this medicine on time even if you are feeling well. If you forget to take a dose on time, take it as soon as you remember. If it is almost time for the next dose, do not take the missed dose. Return to your keagan l dosing schedule. Do not take 2 doses of this medicine at one time. Please tell your doctor and pharmacist about all the medicines you take. Include both prescription and [id number]-dms-jitwdwo medicines. Also tell them about any ariela mins, herbal medicines, or anything else you take for your health. This medicine may cause low blood sugar. It is very important to have regular me als and exercise regularly as instructed by your doctor. Notify your doctor if y ou experience symptoms of low blood sugar. If you have diabetes, this medicine may hide some signs of low blood sugar, such as fast heartbeat. Check your blood sugar regularly and for other signs of low blood sugar. Symptoms of low blood sugar may include nausea, shaking, sweating, cold skin, fa st heartbeat, hunger, and irritability. Do not suddenly stop taking this medicine. Check with your doctor before stoppin g. Cautions Tell your doctor and pharmacist if you ever had an allergic reaction to a medici ne. Symptoms of an allergic reaction can include trouble breathing, skin rash, i tching, swelling, or severe dizziness. Do not use the medication any more than instructed. Your ability to stay alert or to react quickly may be impaired by this medicine. Do not drive or operate machinery until you know how this medicine will affect you. Contact your doctor if you notice a change in the amount or darkening of your ur ine. Tell the doctor or pharmacist if you are , planning to be , or b reastfeeding. Ask your pharmacist if this medicine can interact with any of your other medicin es. Be sure to tell them about all the medicines you take. Please tell all your doctors and dentists that you are on this medicine before t hey provide care. Do not start or stop any other medicines without first speaking to your doctor o r pharmacist. Do not share this medicine with anyone who has not been prescribed this medicine . Side Effects The following is a list of some common side effects from this medicine. Please s peak with your doctor about what you should do if you experience these or other side effects. diarrhea dizziness drowsiness or sedation impotence Call your doctor or get medical help right away if you notice any of these more serious side effects: swelling of the legs, feet, and hands lack of energy and tiredness slow heartbeat low blood pressure shortness of breath sudden or unexplained weight gain A few people may have an allergic reaction to this medicine. Symptoms can includ e difficulty breathing, skin rash, itching, swelling, or severe dizziness. If yo u notice any of these symptoms, seek medical help quickly. Extra Please speak with your doctor, nurse, or pharmacist if you have any questions ab out this medicine. [email or web address] IMPORTANT NOTE: This document tells you briefly how to take your medicine, but i t does not tell you all there is to know about it.Your doctor or pharmacist may give you other documents about your medicine. Please talk to them if you have an y questions.Always follow their advice. There is a more complete description of this medicine available in Wallisian.Scan this code on your smartphone or tablet o r use the web address below. You can also ask your pharmacist for a printout. If you have any questions, please ask your pharmacist. 2020 [employer]. documented in this encounter Progress Notes * Lloyd Broderick MD - 04/03/2021 9:40 AM CDT [facility] Appointment Date: 04/03/2021 Jean Rincon MD [address] [facility] [id number] RE: Joyce Gipson : 1950 Visit provider: Lloyd Broderick MD Dear Jean Rincon MD, I had the pleasure of seeing Joyce Gipson in the office today. She is a(n) 70 y .o. female and presents with the following chief complaint(s): Valvular disease and Follow-up on test results HPI: I had the pleasure of seeing Joyce in followup. She has done well since her vis it with myself on March 13 without any evidence of heart failure or other troub les. I had referred her to see Dr. Sanchez for consideration for mitral valve rep air; however, with the degree of mitral annular calcification, he felt that her chances of undergoing successful repair were not ideal and had hoped we could se e her in the valve clinic for consideration of other options. She has not been very vigorous, but she has not had any difficulty. She denies any PND, orthopnea, or any recurrence of the symptoms of heart failure that occu rred when she was admitted at [facility]. Since that time, she has been on Las ix and I added Aldactone at her last visit, which has been well tolerated. Patient Active Problem List Diagnosis SNOMED CT(R) Heart palpitations PALPITATIONS Mitral valve prolapse MITRAL VALVE PROLAPSE Mixed hyperlipidemia MIXED HYPERLIPIDEMIA Agatston CAC score 100-199 CALCIFICATION OF CORONARY ARTERY Abnormal screening CT of chest CT OF CHEST ABNORMAL Raynaud's disease RAYNAUD'S DISEASE Primary osteoarthritis of right knee OSTEOARTHRITIS OF RIGHT KNEE JOINT Coronary artery calcification of agdaagux artery CALCIFICATION OF CORONARY ART AIDE Mitral valve regurgitation MITRAL VALVE REGURGITATION Tricuspid valve regurgitation TRICUSPID VALVE REGURGITATION Pulmonary HTN (HCC) PULMONARY HYPERTENSION Past Medical History: Diagnosis Date Acute cystitis without hematuria 12/2017 Agatston CAC score 100-199 09/24/2017 Total Agatston Score: 165 (CT: [facility] [place]) Agatston CAC score, <100 06/11/2012 Total Agatston Score: 61.2 Coronary artery calcification of agdaagux artery Heart palpitations Mitral valve prolapse Mitral valve regurgitation Mixed hyperlipidemia Primary osteoarthritis of right knee Pulmonary HTN (HCC) Raynaud's disease Rectocele Shortness of breath Tricuspid valve regurgitation Past Surgical History: Procedure Laterality Date ARTHROSCOPY, KNEE Right 2000 TUBAL LIGATION 1985 Final Medications: Current Outpatient Medications Medication Sig Dispense Refill acetaminophen (TYLENOL) 500 MG tablet Take 500 mg by mouth every 6 (six) jose alfredo rs as needed for pain. ascorbic acid (VITAMIN C) 500 mg tablet Take 500 mg by mouth daily. atorvastatin (LIPITOR) 20 MG tablet Take 1 tablet (20 mg total) by mouth chloe ly. 90 tablet 3 calcium phosphate-vitamin D3 250 mg calcium- 500 unit Chew Chew 1 tablet chloe ly. cholecalciferol, vitamin D3, (VITAMIN D3 ORAL) Take by mouth daily. ciclopirox (LOPROX) 0.77 % cream APPLY CREAM TOPICALLY TWICE DAILY TO TOENAI LS FOR 30 DAYS coenzyme Q10 200 mg capsule Take 200 mg by mouth daily. fluticasone (FLONASE) 50 mcg/actuation nasal spray spray 1 spray by intranas al route every day in each nostril (Patient taking differently: as needed. ) 1 0 furosemide (LASIX) 40 MG tablet Take 1 tablet (40 mg total) by mouth daily. 90 tablet 3 ibuprofen (ADVIL,MOTRIN) 200 MG tablet take 1 tablet (200MG) by oral route every 6 hours as needed with food 90 0 multivit-min/folic acid/vcd944 (ALIVE WOMEN'S GUMMY VITAMINS ORAL) Take by m outh daily. potassium chloride (KAYCIEL) 20 mEq/15 mL solution Take 3.8 mL (5.0667 mEq t otal) by mouth daily. 3.8 mL 1 spironolactone (ALDACTONE) 25 MG tablet Take 0.5 tablets (12.5 mg total) by mouth daily. 45 tablet 3 caRVEDILoL (COREG) 3.125 MG tablet Take 1 tablet (3.125 mg total) by mouth 2 (two) times a day with meals. 180 tablet 3 No current facility-administered medications for this visit. Allergies Allergen Reactions Amoxicillin-Pot Clavulanate Nausea And Vomiting Can take Amoxicillin but not amoxicillin-pot clavulante or Augmentin per patifarhan nt. Family History Problem Relation Age of Onset Hyperlipidemia Brother Hypertension Brother Hyperlipidemia Brother Hypertension Mother Hypertension Father Cancer Father Abdominal Social History: Social History Tobacco Use Smoking status: Never Smoker Smokeless tobacco: Never Used Substance Use Topics Alcohol use: Yes Comment: 1 drink monthly on average Drug use: No Review of Systems Constitutional: Negative for chills and decreased appetite. HENT: Negative for ear discharge and ear pain. Eyes: Negative for discharge and redness. Cardiovascular: Positive for irregular heartbeat. Negative for chest pain, dyspn ea on exertion and leg swelling. Respiratory: Negative for cough. Endocrine: Negative for polyuria. Skin: Negative for dry skin and itching. Musculoskeletal: Positive for arthritis. Negative for muscle cramps and stiffnes s. Gastrointestinal: Negative for constipation and diarrhea. Genitourinary: Negative for hematuria. Neurological: Negative for difficulty with concentration and excessive daytime s leepiness. Psychiatric/Behavioral: Negative for depression. The patient is nervous/anxious. Allergic/Immunologic: Positive for environmental allergies. All other systems reviewed and are negative. Vital Signs 04/03/21 0914 BP: 138/82 Pulse: 90 Weight: 56.7 kg (125 lb) Height: 1.626 m (5' 4") BMI: Body mass index is 21.46 kg/m. Physical Exam Vitals and nursing note reviewed. Exam conducted with a crib tender present. Constitutional: Appearance: She is well-developed. HENT: Head: Normocephalic. Eyes: Pupils: Pupils are equal, round, and reactive to light. Cardiovascular: Rate and Rhythm: Normal rate and regular rhythm. Pulses: Normal pulses. Carotid pulses are 2+ on the right side and 2+ on the left side. Radial pulses are 2+ on the right side and 2+ on the left side. Dorsalis pedis pulses are 2+ on the right side and 2+ on the left side. Posterior tibial pulses are 2+ on the right side and 2+ on the left side. Heart sounds: S1 normal. Murmur heard. Decrescendo systolic ( significantly louder than prior exams) murmur is present with a grade of 3/6. No friction rub. No gallop. Comments: Late systolic murmur Pulmonary: Effort: Pulmonary effort is normal. Breath sounds: Normal breath sounds. No wheezing or rales. Chest: Chest wall: No tenderness. Abdominal: General: Bowel sounds are normal. Palpations: Abdomen is soft. Musculoskeletal: General: No tenderness. Normal range of motion. Cervical back: Normal range of motion and neck supple. Right lower leg: No edema. Left lower leg: No edema. Skin: General: Skin is warm and dry. Neurological: General: No focal deficit present. Mental Status: She is alert and oriented to person, place, and time. Cranial Nerves: No cranial nerve deficit. Psychiatric: Behavior: Behavior normal. Cholesterol Date Value 02/14/2020 210 mg/dL (A) 12/20/2018 212 mg/dL (A) 09/29/2017 173 09/29/2017 173 HDL Cholesterol (mg/dL) Date Value 02/14/2020 49 (A) 12/20/2018 47 (A) 12/20/2018 47 Triglycerides (mg/dL) Date Value 02/14/2020 272 (A) 12/20/2018 216 (A) 12/20/2018 216 (A) LDL Cholesterol Date/Time Value Ref Range Status 02/14/2020 12:00 AM 119 mg/dL Final 12/20/2018 12:00 AM 129 (A) 100 mg/dL Final 12/20/2018 12:00 AM 129 mg/dL Final Transesophageal Echo 03/27/2021 IMPRESSION 1. Normal left ventricular systolic function, with an estimated ejection fra ction of 65%. 2. Normal right ventricular size and systolic function. 3. Mitral valve prolapse with partially flail posterior leaflet (P2 segment) and severe eccentric anterior directed jet of mitral regurgitation. ERO = 0.7cm2 RV=85 ml. Mean gradient = 3 mmHg. 4. Elevated pulmonary artery pressure of at least 52 mmHg. 5. No evidence of a PFO based on a saline contrast study. Encounter Diagnoses Name Primary? Agatston CAC score 100-199 Yes Heart palpitations Mitral valve prolapse Nonrheumatic mitral valve regurgitation Mixed hyperlipidemia Impression and Plan: 1. 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 She feels relatively normal at this point but has not been very active, I have asked to walk regularly but not exert herself v aide strenuously. She does not have any signs of volume overload at this point. 2. Episode of heart failure that occurred suddenly on onset that probably corre lates with her chordal tear. 3. Mixed hyperlipidemia and she has done well on moderate dose Lipitor. Her tr iglycerides have been up and down depending on her diet. 4. Mildly elevated coronary calcium score of 165 in 2018. She has tolerated the Aldactone quite well. I have asked her to add carvedilol at 3.125 p.o. twice a day at this point and we have referred her to the valve cl in for consideration of intervention to her mitral valve, this is scheduled in April. I am hopeful she can undergo mitral valve repair, but she may warra nt replacement and certainly considering other options long-term would be reason able. She would seem to be an excellent surgical candidate. Of note, her echocardiogram via [facility] did mention moderate aortic stenosis. H owever, the transesophageal echo as well as our other prior echo studies did dem onstrate normal aortic valve structure and function and their comments are diffi cult to understand. Treatment goals, progress and next steps, as above, were discussed and mutually agreed upon with the patient/family. Thank you for allowing me to participate in Joyce Gipson's care. If I can be o f any further assistance, please do not hesitate to contact me. Sincerely, Lloyd Broderick MD /es documented in this encounter Plan of Treatment Care Team Description Date Type Specialty Mike Steve MD [address] [facility] [address] [place] [address] [phone] 05/03/2021 Appointment Cardiology 05/03/2021 Appointment [place] [address] [facility] [address] [place] [address] [phone] 06/10/2021 Office Visit Cardiology Order Schedule Name Type Priority Associated Diag noses Expected: 04/04/2021 (Approximate), Expi res: 04/03/2022 Ambulatory Referral to Outpatient Routine Agatsto n CAC score [facility] Referral 100-199 Heart palpitations Mitral valve prolapse Nonrheumatic mitral valve regurgitation documented as of this encounter Visit Diagnoses Diagnosis Agatston CAC score 100-199 - Primary Heart palpitations Palpitations Mitral valve prolapse Mitral valve disorders Nonrheumatic mitral valve regurgitation Mixed hyperlipidemia documented in this encounter
--- OUTSIDE RECORDS SUMMARY | 2021-04-12 06:02 | XMS REPORT | Encounter Summary ---
Author Author [facility] Organization [facility] Address Unknown Phone Unavailable Care Team Providers Care Chief Investment Officer Name Role Phone Self, Jean ROUSE PCP Encounter Details Care Team Description [place] [address] [facility] [address] [place] [address] [phone] Mitral valve prolapse; Heart palpitations; Agatston CAC score 100-199; Mitral valve insufficiency, unspecified etiology 03/13/2021 [facility] [address] [place] [address] Social History Date Tobacco Use Types Packs/Day Years Used Never Smoker Smokeless Tobacco: Never Used Comments Alcohol Use Standard Drinks/Week rarely Yes 0 (1 standard drink = 0.6 o z pure alcohol) Sex Assigned at Date Recorded Female 03/31/2021 7:46 PM CDT documented as of this encounter Medications at Time of Discharge Start Date End Date Medication Sig Dispensed Refills ascorbic acid (VITAMIN C) Take 500 mg 0 500 mg tablet by mouth daily. 03/13/2021 atorvastatin (LIPITOR) 20 Take 1 tablet 90 tablet 3 MG tablet (20 mg total) by mouth daily. 10/25/2017 calcium phosphate-vitamin Chew 1 tablet 0 D3 250 mg calcium- 500 daily. unit Chew 10/25/2017 cholecalciferol, vitamin Take by mouth 0 D3, (VITAMIN D3 ORAL) daily. 02/12/2021 ciclopirox (LOPROX) 0.77 APPLY CREAM 0 % cream TOPICALLY TWICE DAILY TO TOENAILS FOR 30 DAYS 01/15/2017 coenzyme Q10 200 mg Take 200 mg 0 capsule by mouth daily. 10/20/2014 fluticasone (FLONASE) 50 spray 1 spray 1 0 mcg/actuation nasal spray by intranasal route every day in each nostril 08/11/2012 ibuprofen (ADVIL,MOTRIN) take 1 tablet 90 0 200 MG tablet (200MG) by oral route every 6 hours as needed with food 02/14/2017 multivit-min/folic Take by mouth 0 acid/cgf633 (ALIVE daily. WOMEN'S GUMMY VITAMINS ORAL) 03/13/2021 spironolactone Take 0.5 45 tablet 3 (ALDACTONE) 25 MG tablet tablets (12.5 mg total) by mouth daily. 03/13/2021 04/03/2021 furosemide (LASIX) 40 MG Take 1 tablet 30 tablet 11 tablet (40 mg total) by mouth daily. 03/13/2021 04/11/2021 potassium chloride Take 3.8 mL 3.8 mL 1 (KAYCIEL) 20 mEq/15 mL (5.0667 mEq solution total) by mouth daily. documented as of this encounter Plan of Treatment Care Team Description Date Type Specialty Mike Steve MD [address] [facility] [address] [place] [address] [phone] 05/03/2021 Appointment Cardiology 05/03/2021 Appointment [place]ve [place] [address] [facility] [address] [place] [address] [phone] 06/10/2021 Office Visit Cardiology documented as of this encounter Procedures Comments Procedure Name Priority Date/Time Associated Diag nosis XR CHEST 2 VIEWS (PA AND Routine 03/13/2021 [place] valve prolapse LATERAL) 3:45 PM CDT Heart palpitations Agatston CAC score 100-199 Mitral valve insufficiency, unspecified etiology documented in this encounter Results * XR Chest 2 views (PA and lateral) (03/13/2021 3:45 PM CDT) Specimen Impressions Performed At Impression: There is mild thoracic kyphosis. This is unchanged since [facility] October 01, 2017. Lungs are hyperexpan ded consistent with COPD. This is unchanged. There are no superimposed ac felton pulmonary abnormalities. The heart is normal in size. The mediastinu m is not widened. Pulmonary vessels are within normal limits. There is no evidence of pleural effusion or pneumothorax. Narrative Performed At Patient: BYRON SAXENA Sex#: F #: [id number] Derrek#: [id number] Location: [facility] XRAY [address] Procedure Requested: [id number] XR CHEST 2 VIEWS (PA AND LATERAL) [...] In - 03/13/2021 3:57 PM CDT Patient: BYRON SAXENA Sex#: F #: [id number] Derrek#: [id number] Location: [facility] XRAY Procedure Requested: [id number] XR CHEST 2 VIEWS (PA AND LATERAL) [...] Organization Address City/State/ZIP Code P rocky Number [email or web address] documented in this encounter Visit Diagnoses Diagnosis Mitral valve prolapse Mitral valve disorders Heart palpitations Palpitations Agatston CAC score 100-199 Mitral valve insufficiency, unspecified etiology documented in this encounter
--- OUTSIDE RECORDS SUMMARY | 2021-04-12 06:02 | XMS REPORT | Encounter Summary ---
Author Author [facility] Organization [facility] Address Unknown Phone Unavailable Care Team Providers Care Waste And Batting Waste Chopper Name Role Phone Self, Jean ROUSE PCP Encounter Details Care Team Description Date Type Department Debbie Cadet RN 03/29/2021 Abstract [facility] [address] [place] [address] Social History Date Tobacco Use Types Packs/Day Years Used Never Smoker Smokeless Tobacco: Never Used Comments Alcohol Use Standard Drinks/Week rarely Yes 0 (1 standard drink = 0.6 o z pure alcohol) Sex Assigned at Date Recorded Female 03/31/2021 7:46 PM CDT documented as of this encounter Plan of Treatment Care Team Description Date Type Specialty Mike Steve MD [address] [place] [address] [phone] 05/03/2021 Appointment Cardiology 05/03/2021 Appointment [place] [address] [facility] [address] [place] [address] [phone] 06/10/2021 Office Visit Cardiology documented as of this encounter Visit Diagnoses Not on filedocumented in this encounter
--- OUTSIDE RECORDS SUMMARY | 2021-04-12 06:02 | XMS REPORT | Encounter Summary ---
Author Author [facility] Organization [facility] Address Unknown Phone Unavailable Care Team Providers Care Mason Tender Name Role Phone Self, Jean ROUSE PCP Reason for Visit * Reason Onset Date Comments Returning patient call 03/22/2021 Encounter Details Care Team Description Date Type Department Kristyn Whitfield RN Returning patient call 03/22/2021 Telephone [facility] [address] [place] [address] Social History Date Tobacco Use Types Packs/Day Years Used Never Smoker Smokeless Tobacco: Never Used Comments Alcohol Use Standard Drinks/Week rarely Yes 0 (1 standard drink = 0.6 o z pure alcohol) Sex Assigned at Date Recorded Female 03/31/2021 7:46 PM CDT documented as of this encounter Miscellaneous Notes * Telephone Encounter - Kristyn Whitfield RN - 03/22/2021 4:03 PM CDT Pt called to report that she will be accompanied by her and her son All Gipson 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
--- OUTSIDE RECORDS SUMMARY | 2021-04-12 06:02 | XMS REPORT | Encounter Summary ---
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 Name Role Phone Self, Jean ROUSE PCP Reason for Referral * Diagnostic Imaging (Routine) Referred By Contact Referred To Contact Status Reason Specialty Diagnoses / [place] [address] [place] [address] [facility] Cv Ultrasound [address] [place] [address] Closed Cardiology Diagnoses Mitral valve prolapse Heart palpitations Agatston CAC score 100-199 Mitral valve insufficiency, unspecified etiology P rocedures Echo Transesophageal with Doppler and Color Flow Electronically signed by Lloyd Broderick MD at * Diagnostic Imaging (Routine) Referred By Contact Referred To Contact Status Reason Specialty Diagnoses / [place] [address] [place] [address] Authorized Diagnoses Mitral valve prolapse Heart palpitations P rocedures Electrocardiogram (ECG) Electronically signed by Lloyd Broderick MD at Reason for Visit * Reason Comments Shortness of Breath Mitral Valve Prolapse Dyslipidemia Encounter Details Care Team Description [place] [address] [place] [address] [phone] Mitral valve prolapse (Primary Dx); Heart palpitations; Agatston CAC score 100-199; Mitral valve insufficiency, unspecified etiology 03/13/2021 Office Visit [facility] [address] [place] [address] Social History Date Tobacco Use Types Packs/Day Years Used Never Smoker Smokeless Tobacco: Never Used Comments Alcohol Use Standard Drinks/Week rarely Yes 0 (1 standard drink = 0.6 o z pure alcohol) Sex Assigned at Date Recorded Female 03/31/2021 7:46 PM CDT documented as of this encounter Last Filed Vital Signs Reading Time Taken Comments Vital Sign 112/67 03/13/2021 2:36 PM CDT Blood Pressure 94 03/13/2021 2:36 PM CDT Pulse - - Temperature 16 03/13/2021 2:36 PM CDT Respiratory Rate - - Oxygen Saturation - - Inhaled Oxygen Concentration 57.2 kg (126 lb 3.2 oz) 03/13/2021 2:36 PM CDT Weight 162.6 cm (5' 4") 03/13/2021 2:36 PM CDT Height 21.66 03/13/2021 2:36 PM CDT Body Mass Index documented in this encounter Patient Instructions * Patient Instructions* Azra Hemphill RN - 03/13/2021 2:40 PM CDT Images from the original note were not included. The following tests have been ordered: Transesophageal Echocardiogram (CANDELARIA) to b e done. This allows us to get a better look at your valve. You will be given s edation for this. You will need someone to drive you to and from the procedure. Scheduling will contact you to schedule Since you have had both covid vaccinations you should not need to take a covid t est before the CANDELARIA. If you are exposed to anyone with covid, or start having sym ptoms of covid let us know. Labs in 1 week, you can do this at [facility], take the lab orders with you. Chest X-ray today on 1st floor today We will contact you in about 7-10 days to review results Medication instructions: Aldactone 25 mg daily Decrease your potassium dose by half, the aldactone (spironolactone helps your b quique retain potassium) You were taking 10 meq (7.5 ml) previously so now take 5 meq daily. Additional instructions: Weigh yourself every morning. Check your blood pressu re daily, at different times of the day. Do what you feel comfortable doing. Please call the nurse line at [phone] with any questions or concerns. For medication refills, please call the pharmacy first For any [facility] scheduling questions call [phone] At [facility], high quality patient care is our top priority. To ensure our cardio vascular standards are continually met, you may receive a survey via email or Clear Standards message, we will ask that you please take the time to fill it out. We strive to ensure you are satisfied with every visit. Thank you in advance for taking the time to fill this out. It was good to see you Azra Juarez RN and Kiarra INIGUEZ Spironolactone tablets Brand Name: Aldactone What is this medicine? SPIRONOLACTONE (opal on oh LAK tone) is a diuretic. It helps you make more urin e and to lose excess water from your body. This medicine is used to treat high b lood pressure, and edema or swelling from heart, kidney, or liver disease. It is also used to treat patients who make too much aldosterone or have low potassium. How should I use this medicine? Take this medicine by mouth with a drink of water. Follow the directions on your prescription label. You can take it with or without food. If it upsets your sto mach, take it with food. Do not take your medicine more often than directed. Rem ember that you will need to pass more urine after taking this medicine. Do not t love your doses at a time of day that will cause you problems. Do not take at bed time. Talk to your vice president mission integration regarding the use of this medicine in children. While this drug may be prescribed for selected conditions, precautions do apply. What side effects may I notice from receiving this medicine? Side effects that you should report to your doctor or health intensive care specialist a s soon as possible: allergic reactions such as skin rash or itching, hives, swelling of the lips, mouth, tongue, or throat black or tarry stools fast, irregular heartbeat fever muscle pain, cramps numbness, tingling in hands or feet trouble breathing trouble passing urine unusual bleeding unusually weak or tired Side effects that usually do not require medical attention (report to your docto r or health intensive care specialist if they continue or are bothersome): change in voice or hair growth confusion dizzy, drowsy dry mouth, increased thirst enlarged or tender breasts headache irregular menstrual periods sexual difficulty, unable to have an erection stomach upset What may interact with this medicine? Do not take this medicine with any of the following medications: cidofovir eplerenone tranylcypromine This medicine may also interact with the following medications: aspirin certain medicines for blood pressure or heart disease like benazepril, lisino pril, losartan, valsartan certain medicines that treat or prevent blood clots like heparin and enoxapar in cholestyramine cyclosporine digoxin lithium medicines that relax muscles for surgery NSAIDs, medicines for pain and inflammation, like ibuprofen or naproxen other diuretics potassium supplements steroid medicines like prednisone or cortisone trimethoprim What if I miss a dose? If you miss a dose, take it as soon as you can. If it is almost time for your ne xt dose, take only that dose. Do not take double or extra doses. Where should I keep my medicine? Keep out of the reach of children. Store below 25 degrees C (77 degrees F). Throw away any unused medicine after expiration date. What should I tell my health care provider before I take this medicine? They need to know if you have any of these conditions: high blood level of potassium kidney disease or trouble making urine liver disease an unusual or allergic reaction to spironolactone, other medicines, foods, dy es, or preservatives or trying to get breast-feeding What should I watch for while using this medicine? Visit your doctor or health intensive care specialist for regular checks on your progres s. Check your blood pressure as directed. Ask your doctor what your blood pressu re should be, and when you should contact them. You may need to be on a special diet while taking this medicine. Ask your doctor . Also, ask how many glasses of fluid you need to drink a day. You must not get dehydrated. This medicine may make you feel confused, dizzy or lightheaded. Drinking alcohol and taking some medicines can make this worse. Do not drive, use machinery, or do anything that needs mental alertness until you know how this medicine affects you. Do not sit or stand up quickly. NOTE:This sheet is a summary. It may not cover all possible information. If you have questions about this medicine, talk to your doctor, pharmacist, or health c are provider. Copyright 2020 [employer] Transesophageal Echocardiography (CANDELARIA) Transesophageal echocardiography (CANDELARIA) is a test done to record images of your h eart with a probe inside your throat (esophagus). These images help your healthc are provider find and treat problems such as infection, disease, or defects in y our hearts function, beltran or valves. This test may be done when a chest echo cardiogram (transthoracic) does not give your provider enough information. Before your test Tell your provider about allthe medicines you take. Ask if you should take them before the test. Your stomach typically should be empty for this test to pr event vomiting so your provider will likely tell you not to take them. Follow any directions you are given for not eating or drinking before the pro cedure. Tell your healthcare provider if you have ulcers, a hiatal hernia, or problem s swallowing. Also report a history of narrowing of the esophagus, or any other previous gastrointestinal problems. A smaller probe that may be needed for you r study. Also let him or her know of any allergies to medicines or sedatives. Also let your provider know if you have dental implants or dentures that shou ld be removed before the test. Arrange to have someonedrive youhome after the exam. You will be given a sedative for the test. It won't be safe to drive for a period of time. During your CANDELARIA When you arrive for your CANDELARIA, you will change into a hospital gown, and then be taken to the testing room. Your provider will spray your throat with a numbing medicine. You may be give n a medicine through an IV (intravenous) in your arm to help you relax. You may also be given oxygen. Then youll be asked to lie on your left side. The healthcare provider gently puts the small, lubricated probe into your hien th. A small plastic or rubber bite-block will be put in your mouth to prevent yo u from biting down on the probe during the test. As you swallow, the provider wi ll slowly guide the tube into your esophagus. You may feel the healthcare provider moving the probe, but it shouldnt alesia t or interfere with your breathing. A nurse checks your heart rate, blood pressu re, and breathing.The test usually takes 15 to 30min. The nurse hydraulic bull riveter operator will suction any saliva out of your mouth, similar to when you have a dental cleaning. After the test Tell your healthcare provider about any pain, or if you cough up or vomit blo od, or have trouble swallowing. You can eatand drink again when your throat is no longer numb and you are f ully awake. Don't drive a car or run heavy machinery for at least 24 hours after getting sedation. After 24 hours you can return to normal activity unless your healthcar e provider tells you otherwise. Be sure to keep your follow-up appointment to go over the results with your h ealthcare provider. Your next appointment is: Asad reyes reviewed this educational content on 02/14/201919991515-5886 [employer]. [address] [place] [address] 7. All rights reserved. This information is not intended as a substitute for pro fessional medical care. Always follow your healthcare professional's instruction s. documented in this encounter Progress Notes * Lloyd Broderick MD - 03/13/2021 2:40 PM CDT [facility] Appointment Date: 03/13/2021 Jean Rincon MD [address] [place] [phone] RE: Joyce Saxena : 1950 Visit provider: Lloyd Broderick MD Dear Jean Rincon MD, I had the pleasure of seeing Joyce Saxena in the office today. She is a(n) 70 y .o. female and presents with the following chief complaint(s): Shortness of Bronson th, Mitral Valve Prolapse, and Dyslipidemia HPI: I had the pleasure of seeing Joyce in followup. I most recently visited with sarah hyde in February 2020, at which time she was doing quite well. We had her undergo an e chocardiogram last April, which demonstrated at least moderate mitral regurg itation, but at that time she was doing quite well without any limitations and n o evidence of complications. She had felt relatively well and then a little bit of abdominal fullness for a s hort period of time (about a couple of days by her description) and then she bec vivek quite acutely short of breath and presented to the emergency room in [facility] and was sent to [facility] in [place] as there were no beds [facility] in the [facility] where she had requested to come. There, she wa s treated for congestive heart failure with IV Lasix and underwent an echocardio gram outlined below that demonstrated [id number]-vu-[id number] mitral regurgitation bu t also noted moderate aortic stenosis. She did have normal left ventricular fun ction and normal right ventricular size and systolic function. She was discharg ed on diuretics as well as oxygen therapy and she has done well for the last cou ple of days. She did not have any fevers, chills, shakes or sweats. She had a negative COVID test at [facility] and had been vaccinated in the past. Additionally, she did not have any weight gain. She has never had any edema or other overt signs of heart failure. I have followed her for quite some time with mitral regurgitation of a mild-to-m oderate degree with mitral valve prolapse, and we discussed the possibility of p ossible chordal rupture, but there does not seem to be any other exacerbating or high-risk features. Patient Active Problem List Diagnosis SNOMED CT(R) Heart palpitations PALPITATIONS Mitral valve prolapse MITRAL VALVE PROLAPSE Mixed hyperlipidemia MIXED HYPERLIPIDEMIA Agatston CAC score 100-199 CALCIFICATION OF CORONARY ARTERY Abnormal screening CT of chest CT OF CHEST ABNORMAL Raynaud's disease RAYNAUD'S DISEASE Primary osteoarthritis of right knee OSTEOARTHRITIS OF RIGHT KNEE JOINT Coronary artery calcification of ho-chunk artery CALCIFICATION OF CORONARY ART AIDE Mitral valve regurgitation MITRAL VALVE REGURGITATION Tricuspid valve regurgitation TRICUSPID VALVE REGURGITATION Pulmonary HTN (HCC) PULMONARY HYPERTENSION Past Medical History: Diagnosis Date Acute cystitis without hematuria 12/2017 Agatston CAC score 100-199 09/24/2017 Total Agatston Score: 165 (CT: [place], [place], [place]) Agatston CAC score, <100 06/11/2012 Total Agatston Score: 61.2 Coronary artery calcification of ho-chunk artery Heart palpitations Mitral valve prolapse Mitral valve regurgitation Mixed hyperlipidemia Moderate mitral regurgitation 01/09/2017 Primary osteoarthritis of right knee Pulmonary HTN (HCC) Raynaud's disease Shortness of breath Tricuspid valve regurgitation Past Surgical History: Procedure Laterality Date TUBAL LIGATION 1985 Final Medications: Current Outpatient Medications Medication Sig Dispense Refill ascorbic acid (VITAMIN C) 500 mg tablet Take 500 mg by mouth daily. atorvastatin (LIPITOR) 20 MG tablet Take 1 tablet (20 mg total) by mouth chloe ly. 90 tablet 3 calcium phosphate-vitamin D3 250 mg calcium- 500 unit Chew ciclopirox (LOPROX) 0.77 % cream APPLY CREAM [...] tablet (40 mg total) by mouth daily. 30 tablet 11 ibuprofen (ADVIL,MOTRIN) 200 MG tablet take 1 tablet (200MG) by oral route every 6 hours as needed with food 90 0 multivit-min/folic acid/qap325 (ALIVE WOMEN'S GUMMY VITAMINS ORAL) Take by m outh daily. potassium chloride (KAYCIEL) 20 mEq/15 mL solution Take 3.8 mL (5.0667 mEq t otal) by mouth daily. 3.8 mL 1 cholecalciferol, vitamin D3, (VITAMIN D3 ORAL) Take by mouth daily. spironolactone (ALDACTONE) 25 MG tablet Take 0.5 tablets (12.5 mg total) by mouth daily. 45 tablet 3 No current facility-administered medications for this visit. Allergies Allergen Reactions Amoxicillin-Pot Clavulanate Nausea Only, Nausea And Vomiting and Other (See Comments) Elevated blood pressure Elevated blood pressure Family History Problem Relation Age of Onset Hyperlipidemia Brother Hypertension Brother Hyperlipidemia Brother Hypertension Mother Hypertension Father Cancer Father Abdominal Social History: Social History Tobacco Use Smoking status: Never Smoker Smokeless tobacco: Never Used Substance Use Topics Alcohol use: Yes Comment: rarely Drug use: No Review of Systems Constitutional: Negative for chills and decreased appetite. HENT: Negative for ear discharge and ear pain. Eyes: Negative for discharge and redness. Cardiovascular: Positive for dyspnea on exertion and irregular heartbeat. Negati ve for chest pain and leg swelling. Respiratory: Positive for cough and sputum production. Skin: Positive for dry skin. Negative for itching. Musculoskeletal: Negative for muscle cramps and stiffness. Gastrointestinal: Negative for constipation and diarrhea. Genitourinary: Negative for dysuria and nocturia. Neurological: Negative for disturbances in coordination and excessive daytime sl eepiness. Psychiatric/Behavioral: Negative for depression. Allergic/Immunologic: Negative for environmental allergies. All other systems reviewed and are negative. Vital Signs 03/13/21 1436 BP: 112/67 Pulse: 94 Resp: 16 Weight: 57.2 kg (126 lb 3.2 oz) Height: 1.626 m (5' 4") BMI: Body mass index is 21.66 kg/m. Physical Exam Vitals and nursing note reviewed. Exam conducted with a instant powder supervisor present. Constitutional: Appearance: She is well-developed. HENT: [...] General: Skin is warm and dry. Neurological: Mental Status: She is alert. Cranial Nerves: No cranial nerve deficit. Psychiatric: [...] Final 12/20/2018 12:00 AM 129 mg/dL Final Echo 03/06/2020 LV: normal size, mild concentric LVH. Normal systolic function, EF 60-65%. No re gional wall motion abnormalities. LA: mildly-moderately dilated at 4.9cm. RA: normal. RV: normal size and systolic function. Aortic valve: normal structure, mild sclerosis, accelerated flow across the valv e with mean gradient of 25 mmHg, peak gradient 46 mmHg, peak velocity of 3.4m/s with a calculated aortic valve area of 0.9cm2, mild aortic valve regurg. Mitral valve: mildly calcified annulus, leaflets mildly thickened, no stenosis, moderate-severe regurg. Tricuspid valve: moderate-severe regurg. No pericardial effusion. Aortic root: normal. IVC: normal. PASP 65 mmHg. ([address] [place], [place]) Encounter Diagnoses Name Primary? Mitral valve prolapse Yes Heart palpitations Agatston CAC score 100-199 Mitral valve insufficiency, unspecified etiology Impression and Plan: 1. History of mitral valve prolapse with mild mitral regurgitation and then mod erate mitral regurgitation by an echocardiogram done in April 2020, now with xerzyfsr-cl-ktsqlx mitral regurgitation but complicated by an episode of heart failure. 2. Episode of heart failure that seemed rather sudden in onset, and she has had very well-preserved exercise tolerance until just recently. She did get discha rged on diuretics as well as potassium therapy and oxygen. I doubt she will act ually need the oxygen therapy for much longer. She does seem to be euvolemic at this point. 3. Mild dyslipidemia, which has been reasonably well controlled on moderate-dos e Lipitor. She has not tolerated higher doses in the past to any degree and deja s we have not increased it. 4. Mildly elevated coronary calcium score of 165 in 2018. I did ask her to undergo a transesophageal echocardiogram to evaluate any signif icant changes in her mitral valve. I have asked her to add Aldactone to her reg imen at 12.5 mg. We will recheck her CBC and CMP in 1 week in [place]. If she does have a small chordal tear and it is amenable to mitral valve repair, we will certainly refer her to surgery given her onset of symptoms, but if she does require or warrant mitral valve replacement, we may pursue medical therapy more carefully. Treatment goals, progress and next steps, as above, were discussed and mutually agreed upon with the patient/family. Thank you for allowing me to participate in Joyce Saxena's care. If I can be o f any further assistance, please do not hesitate to contact me. Sincerely, Lloyd Broderick MD /johnathan documented in this encounter Plan of Treatment Care Team Description Date Type Specialty Mike Steve MD [address] [facility] [address] [place] [address] [phone] 05/03/2021 Appointment Cardiology 05/03/2021 Appointment [place] [address] [facility] [address] [place] [address] [phone] 06/10/2021 Office Visit Cardiology documented as of this encounter Procedures Comments Procedure Name Priority Date/Time Associated Diag nosis COMPREHENSIVE METABOLIC Routine 03/20/2021 Mitral valve prolapse PANEL Heart palpitations Agatston CAC score 100-199 Mitral valve insufficiency, unspecified etiology CBC AND DIFF (MANUAL DIFF Routine 03/20/2021 Mitr al valve prolapse IF NECESSARY) Heart palpitations Agatston CAC score 100-199 Mitral valve insufficiency, unspecified etiology ECG Routine 03/13/2021 Mitral valve pr olapse 2:34 PM CDT Heart palpitations documented in this encounter Results * Echo Transesophageal with Doppler and [...] 27 March 2021 12:58 Narrative Performed At [facility] Transesophageal Echocardiogram Report Name: JOYCE SAXENA Date: 03/27/2021 08:02 Chart #: [id number] : 1950 Gender F Location: [facility] Sono: tawanna man : Age: 70 Room #: [id number] Referring: LLOYD BRODERICK Fellow: Procedure: ECHO TRANSESOPHAGEAL [facility] COLOR FLOW AND DOPPLER Indication:Mitral valve prolapse; Heart palpitations; Mitral valve insufficiency, unspecified etiology; Agatston CAC score 100-199 Procedure: The patient was kept PLYWOOD PATCHER O after midnight. Informed consent was obtained. [...] PM CDT Transesophageal Echocardiogram Report Name: JOYCE SAXENA Date: 03/27/2021 08:02 Chart #: [id number] : 1950 Gender F Location: [facility] Sono: lgorman : Age: 70 Room #: [id number] Referring: LLOYD BRODERICK Fellow: Procedure: ECHO TRANSESOPHAGEAL WITH COLOR FLOW [...] 27 March 2021 12:58 Performing Organization Address City/State/ZIP Code P [place] Number [facility] * Comprehensive [...] LAB Am Specimen Blood Performing Organization Address City/State/ZIP Code [place] [...] mild thoracic kyphosis. This is unchanged since CAREN October 01, 2017. Lungs are hyperexpan ded consistent with COPD. This is unchanged. There are no superimposed ac [place] pulmonary abnormalities. The heart is normal in size. The mediastinu m is not widened. Pulmonary vessels are within normal limits. There is no evidence of pleural effusion or pneumothorax. Narrative Performed At Patient: JOYCE SAXENA Sex#: F #: 1950 Derrek#: [id number] Location: [facility] [address] Procedure Requested: [id number] XR CHEST 2 VIEWS (PA AND LATERAL) [...] - 03/13/2021 3:57 PM CDT Patient: JOYCE SAXENA Sex#: F #: 1950 Derrek#: [id number] Location: [facility] Procedure Requested: [id number] XR CHEST 2 VIEWS (PA AND LATERAL) [...] 160 TRACEMASTER Specimen Narrative Performed At [facility] Test Date: 2021-03-13 Pat Name: JOYCE SAXENA [facility] Room: Gender: Female Equipment Maint Tech: [id number] : 1950 Requested By: LLOYD BRODERICK Order Number: [id number] Reading MD: Finn Cheatham Measurements Intervals [place] Rate: 85 P: 71 [place]: 160 QRS: 24 QRSD: 92 T: 47 QT: 372 QTc: 443 Interpretive Statements SINUS RHYTHM Electronically Signed On 04-02-2021 15:4 8:26 CDT by Finn Cheatham Procedure Note Interface, External Ris In - 04/02/2021 3:48 PM CDT [facility] Test Date: 2021-03-13 Pat Name: JOYCE LEECAROLINA [facility]: Gender: Female Equipment Maint Tech: [id number] : 1950 Requested By: LLOYD BRODERICK Order Number: [id number] Reading MD: Finn Cheatham Measurements Intervals [place] Rate: 85 P: 71 [place]: 160 QRS: 24 QRSD: 92 T: 47 QT: 372 QTc: 443 Interpretive Statements SINUS RHYTHM Electronically Signed On 04-02-2021 15:48:26 CDT by Finn Cheatham Performing Organization Address City/State/ZIP Code P rocky Number [email or web address] documented in this encounter Visit Diagnoses Diagnosis Mitral valve prolapse - Primary Mitral valve disorders Heart palpitations Palpitations Agatston CAC score 100-199 Mitral valve insufficiency, unspecified etiology documented in this encounter
--- OUTSIDE RECORDS SUMMARY | 2021-04-12 06:02 | XMS REPORT | Encounter Summary ---
Author Author [facility] Organization [facility] Address Unknown Phone Unavailable Care Team Providers Care Manager Labor Relations Name Role Phone Self, Jean ROSUE PCP Reason for Visit * Reason Onset Date Comments Medication questions 03/13/2021 Encounter Details Care Team Description Date Type Department Azra Hemphill RN Medication questions 03/13/2021 Telephone [facility] [address] [place] [address] Social History Date Tobacco Use Types Packs/Day Years Used Never Smoker Smokeless Tobacco: Never Used Comments Alcohol Use Standard Drinks/Week rarely Yes 0 (1 standard drink = 0.6 o z pure alcohol) Sex Assigned at Date Recorded Female 03/31/2021 7:46 PM CDT documented as of this encounter Miscellaneous Notes * Telephone Encounter - Azra Hemphill RN - 03/13/2021 5:08 PM CDT Per [facility], spironolactone is to be 12.5 mg daily. Pt notified, she has not picked it up yet. New rx to pharmacy. documented in this encounter Plan of Treatment Care Team Description Date Type Specialty Mike Steve MD [address] [facility] [address] [place] [address] [phone] 05/03/2021 Appointment Cardiology 05/03/2021 Appointment [place]ve [place] [address] [place] [address] [phone] 06/10/2021 Office Visit Cardiology documented as of this encounter Visit Diagnoses Not on filedocumented in this encounter
--- OUTSIDE RECORDS SUMMARY | 2021-04-12 06:02 | XMS REPORT | Encounter Summary ---
Author Author [facility] Organization [facility] Address Unknown Phone Unavailable Care Team Providers Care Combination Welder Apprentice Name Role Phone Self, Jean ROUSE PCP Encounter Details Care Team Description Date Type Department Sandra Sol RN 03/11/[address] [facility] [address] [place] [address] Social History Date Tobacco Use Types Packs/Day Years Used Never Smoker Smokeless Tobacco: Never Used Comments Alcohol Use Standard Drinks/Week rarely Yes 0 (1 standard drink = 0.6 o z pure alcohol) Sex Assigned at Date Recorded Female 03/31/2021 7:46 PM CDT documented as of this encounter Plan of Treatment Care Team Description Date Type Specialty Mike Steve MD [address] [facility] [address] [place] [address] [phone] 05/03/2021 Appointment Cardiology 05/03/2021 Appointment [place] [address] [place] [address] [phone] 06/10/2021 Office Visit Cardiology documented as of this encounter Visit Diagnoses Diagnosis Coronary artery calcification of miccosukee artery Pulmonary HTN (HCC) documented in this encounter
--- OUTSIDE RECORDS SUMMARY | 2021-04-12 06:02 | XMS REPORT | Encounter Summary ---
Author Author [facility] Organization [facility] Address Unknown Phone Unavailable Care Team Providers Care Assistant Counsel Name Role Phone Self, Jean ROUSE PCP Reason for Referral * Diagnostic Imaging (Routine) Referred By Contact Referred To Contact Status Reason Specialty Diagnoses / [place] [address] [place] [address] [facility] [address] [place] [address] Closed Cardiology Diagnoses Mitral valve prolapse Heart palpitations Agatston CAC score 100-199 Mitral valve insufficiency, unspecified etiology P rocedures Echo Transesophageal with Doppler and Color Flow Electronically signed by Lloyd Broderick MD at Reason for Visit * Diagnostic Imaging (Routine) Referred By Contact Referred To Contact Status Reason Specialty Diagnoses / [place] [address] [place] [address] [facility] [address] [place] [address] Closed Cardiology Diagnoses Mitral valve prolapse Heart palpitations Agatston CAC score 100-199 Mitral valve insufficiency, unspecified etiology P rocedures Echo Transesophageal with Doppler and Color Flow Encounter Details Care Team Description Date [place] [address] [place] [address] [phone] Mitral valve prolapse; Heart palpitations; Agatston CAC score 100-199; Mitral valve insufficiency, unspecified etiology [facility] [address] [place] [address] Social History Date Tobacco Use Types Packs/Day Years Used Never Smoker Smokeless Tobacco: Never Used Comments Alcohol Use Standard Drinks/Week rarely Yes 0 (1 standard drink = 0.6 o z pure alcohol) Sex Assigned at Date Recorded Female 03/31/2021 7:46 PM CDT documented as of this encounter Last Filed Vital Signs Reading Time Taken Comments Vital Sign 118/100 03/27/2021 9:10 AM CDT Blood Pressure 85 03/27/2021 9:10 AM CDT Pulse 36.4 C (97.6 F) 03/27/2021 8:40 AM CDT Temperature 18 03/27/2021 9:10 AM CDT Respiratory Rate 92% 03/27/2021 9:10 AM CDT Oxygen Saturation - - Inhaled Oxygen Concentration - - Weight - - Height - - Body Mass Index documented in this encounter Discharge Instructions * Discharge Instr - Other Orders* Avril Contreras RN - 03/27/2021 9:16 AM CDT CANDELARIA Discharge Instructions Because you received sedation for your procedure, you will need to avoid the fol lowing for at least 12 hours: Do not consume any alcoholic beverages, or any type of tranquilizing or sleep me dications. Do not drive or operate dangerous machinery. Do not return to work, make important business or sign any legal documents. If you develop a sore throat, gargle with warm salt water or use throat lozenges from your local drugstore. You may resume your regular diet unless otherwise instructed by your physician. Start with cool, clear liquids and advance diet as tolerated. Avoid hot liquids for 6 hours. Monitor IV Site: You may develop a lump and/or redness at the site where your me dication was given. Apply a warm, wet compress to the area for about 10 minutes, 4 times a day for 2 to 3 days or longer if tenderness and redness persists. If tenderness and/or redness continue after 3 days, call your physician. Additional instructions and information: Balance may be affected for up to 12 Hours. Provide assistance until the patient regains their balance. The patient may be sleepy. If the patient is sleeping soundly, wake them every 2 hours for 6 hours and ask them their name, where they are, and who you are. Call your physician at [phone] with any questions or problems or call 911 f or emergent needs. Call 911 if the patient is having difficulty breathing, is turning blue or is un able to awaken. documented in this encounter Medications at Time of Discharge [...] food 02/14/2017 multivit-min/folic Take by mouth 0 acid/zad296 (ALIVE daily. WOMEN'S GUMMY VITAMINS ORAL) 03/13/2021 [...] mouth daily. documented as of this encounter H&P Notes * Kate Chance MD - 03/27/2021 8:00 AM CDT [facility] History and Physical Date:03/27/2021 Author: Kate Chance MD The note below was copied from a recent office visit and the physical exam and r elevant portions of the history were updated where relevant. On the day of presentation, patient's vital signs were BP 95/58 (BP Location: Le ft arm, Patient position: Supine) | Pulse 82 | Temp 36.4 C (97.6 F) (Axill bharat) | Resp 22 | SpO2 95% Appointment Date: 03/13/2021 Jean Rincon MD [address] [place] [phone] RE: Joyce Saxena : 1950 Visit provider: Lloyd Broderick MD Dear Jean Rincon MD, I had the pleasure of seeing Joyce Saxena in the office today. She is a(n) 70 y .o. female and presents with the following chief complaint(s): Shortness of Brigida th, Mitral Valve Prolapse, and Dyslipidemia HPI: I had the pleasure of seeing Joyce in followup. I most recently visited with sarah barrett in February 2020, at which time she [...] emergency room in [facility] and was sent to [facility] in [place] as there were no beds avai lable in the [facility] where she had requested to come. There, she wa s treated for congestive heart failure with IV Lasix and underwent an echocardio gram outlined below that demonstrated [id number]-[id number] mitral regurgitation bu t also noted moderate [...] She had a negative COVID test at [facility] and had been vaccinated in the past. [...] RIGHT KNEE JOINT Coronary artery calcification of crow artery CALCIFICATION OF CORONARY ART AIDE Mitral valve regurgitation MITRAL VALVE REGURGITATION Tricuspid valve regurgitation TRICUSPID VALVE REGURGITATION Pulmonary HTN (HCC) PULMONARY HYPERTENSION Past Medical History: Diagnosis Date Acute cystitis without hematuria 12/2017 Agatston CAC score 100-199 09/24/2017 Total Agatston Score: 165 (CT: [facility] [place]) Agatston CAC score, <100 06/11/2012 Total Agatston Score: 61.2 Coronary artery calcification of crow artery Heart palpitations Mitral valve prolapse Mitral valve regurgitation Mixed hyperlipidemia Moderate mitral regurgitation 01/09/2017 Primary osteoarthritis of right knee Pulmonary HTN (HCC) Raynaud's disease Shortness of breath Tricuspid valve regurgitation Past Surgical History: Procedure Laterality Date TUBAL LIGATION 1985 Final Medications: Current Medications Current Outpatient Medications Medication Sig Dispense Refill [...] as needed with food 90 0 multivit-min/folic acid/ejn063 (ALIVE WOMEN'S GUMMY VITAMINS ORAL) Take by [...] All other systems reviewed and are negative. Vitals Vital Signs 03/13/21 1436 BP: 112/67 Pulse: 94 Resp: 16 Weight: 57.2 kg (126 lb 3.2 oz) Height: 1.626 m (5' 4") BMI: Body mass index is 21.66 kg/m. Physical Exam Vitals and nursing note reviewed. Exam conducted with a conservation science officer present. Constitutional: Appearance: She is well-developed. HENT: [...] root: normal. IVC: normal. PASP 65 mmHg. ([address], [place]) Encounter Diagnoses Name Primary? Mitral valve prolapse Yes Heart palpitations Agatston CAC score 100-199 Mitral valve insufficiency, unspecified etiology Impression and Plan: 1. History of mitral valve prolapse with mild mitral regurgitation and then mod erate mitral regurgitation by an echocardiogram done in April 2020, now with oqawtivu-[id number] mitral regurgitation but complicated by an episode [...] CBC and CMP in 1 week in [place]. If she does have a small chordal [...] Broderick MD /johnathan documented in this encounter Procedure Notes * Kate Chance MD - 03/27/2021 8:45 AM CDT Procedure(s): ECHO TRANSESOPHAGEAL WITH COLOR FLOW AND DOPPLER Pre-Procedure Diagnose(s): Nonrheumatic mitral valve regurgitation Post-Procedure Diagnose(s): Nonrheumatic mitral valve regurgitation [facility] Transesophageal Brief Post-Procedure Report Joyce Saxena 03/27/2021 8:46 AM Informed consent was obtained and patient time out was completed. Indication: Mitral regurgitation Procedural sedation: Propofol per anesthesia Complications: None EBL: None Condition post procedure: Good Estimated ejection fraction: 70% Left atrial appendage: No thrombus Atrial septum: Intact without shunt Valves: Mitral valve posterior leaflet prolapse with severe eccentric MR Other ramirez findings: none Full report to follow I, Kate Chance, was present for and did perform the entire procedure. documented in this encounter Miscellaneous Notes * Sedation Documentation - Kate Chance MD - 03/27/2021 8:00 AM CDT [facility] Pre-Sedation Assessment H&P Update Chief complaint/ History of present illness/ Indication for procedure: Mitral re gurgitation Planned Procedure/ Treatment: Transesophageal Echocardiogram History and Physical Status: Current H&P (<30 days) on chart, reviewed, and physical exam performed within 24 hours of procedure. No changes noted. Pre-Sedation/Analgesia ASA Status: III - Patient with severe systemic disease Plan for Anesthesia: Per [facility] Anesthesiology service Airway Assessment: Mallampati Class II: Visibility of hard and soft palate, uppe r portion of tonsils and uvula [facility] Clinical Frailty Scale: Managing Well - People whose medical problems are w ell controlled, but are not regularly active beyond routine walking. documented in this encounter Plan of Treatment Care Team Description Date Type Specialty Mike Steve MD [address] [facility] [address] [place] [address] [phone] 05/03/2021 Appointment Cardiology 05/03/2021 Appointment [place] [address] [facility] [address] [place] [address] [phone] 06/10/2021 Office Visit Cardiology documented as of this encounter Procedures Comments Procedure Name Priority Date/Time Associated Diag nosis ECHO TRANSESOPHAGEAL WITH Routine 03/27/2021 Mitr al valve prolapse COLOR FLOW AND DOPPLER 9:02 AM CDT Heart palpitat ions Agatston CAC score 100-199 Mitral valve insufficiency, unspecified etiology documented in this encounter Results * Echo [...] JOYCE SAXENA Date: 03/27/2021 08:02 Chart #: [id number] : 1950 Gender F Location: [facility] Sono: tawanna man : Age: 70 Room #: [id number] Referring: LLOYD BRODERICK Fellow: Procedure: ECHO TRANSESOPHAGEAL [facility] COLOR FLOW AND DOPPLER Indication:Mitral valve prolapse; Heart palpitations; Mitral valve insufficiency, unspecified etiology; Agatston CAC score 100-199 Procedure: The patient was kept PROFESSIONAL SERVICES MANAGER O after midnight. Informed consent was obtained. [...] JOYCE SAXENA Date: 03/27/2021 08:02 Chart #: [id number] : 1950 Gender F Location: [facility] CHERYL Sono: kehinde : Age: 70 Room #: [id number] Referring: LLOYD BRODERICK Fellow: Procedure: ECHO TRANSESOPHAGEAL [...] Address City/State/ZIP Code P rocky Number [place]OS[place] documented in this encounter Visit Diagnoses Diagnosis Mitral valve prolapse Mitral valve disorders Heart palpitations Palpitations Agatston CAC score 100-199 Mitral valve insufficiency, unspecified etiology documented in this encounter Administered Medications Action Date Dose Rate Site Medication Order MAR Action sodium chloride 0.9% infusion 30 mL/hr, Intravenous, Continuous, Starting on Thu03/27/21 at 0745, For 48 hours, Pre-op, Start one hour prior to scheduled procedure time. documented in this encounter Active and Recently Administered Medications Times are shown in CDT. 03/26/2021 03/27/2021 Medication Order 03/25/2021 0745 (Due) sodium chloride 0.9% infusion 30 mL/hr, Intravenous, Continuous, Starting on Thu03/27/21 at 0745, For 48 hours, Pre-op, Start one hour prior to scheduled procedure time. documented in this encounter
--- OUTSIDE RECORDS SUMMARY | 2021-04-12 06:02 | XMS REPORT | Encounter Summary ---
Author Author [facility] Organization [facility] Address Unknown Phone Unavailable Care Team Providers Care Bromination Equipment Operator Name Role Phone Self, Jean ROUSE PCP Encounter Details Care Team Description Date [place] [address] [place] [address] [phone] 03/08/2021 Documentation [facility] [address] [place] [address] Social History Date Tobacco Use Types Packs/Day Years Used Never Smoker Smokeless Tobacco: Never Used Comments Alcohol Use Standard Drinks/Week rarely Yes 0 (1 standard drink = 0.6 o z pure alcohol) Sex Assigned at Date Recorded Female 03/31/2021 7:46 PM CDT documented as of this encounter Plan of Treatment Care Team Description Date Type Specialty Mike Steve MD [address] [facility] [address] [place] [address] [phone] 05/03/2021 Appointment Cardiology 05/03/2021 Appointment [place]ve [place] [address] [place], [place] [id number] 06/10/2021 Office Visit Cardiology documented as of this encounter Procedures Comments Procedure Name Priority Date/Time Associated Diag nosis XR OUTSIDE RECORD Routine 03/07/2021 EKG OUTSIDE RECORD Routine 03/06/2021 CT OUTSIDE RECORD Routine 03/06/2021 XR OUTSIDE RECORD Routine 03/06/2021 XR OUTSIDE RECORD Routine 03/06/2021 ECHO OUTSIDE RECORD Routine 03/06/2021 documented in this encounter Results * XR Outside Record (03/07/2021) Specimen Narrative Performed At This result has an attachment that is n ot available. * XR Outside Record (03/06/2021) Specimen Narrative Performed At [...] n ormal. IVC: normal. PASP 65 mmHg. ([facility], [place], [place]) Narrative Performed At This result has an attachment that is n ot available. * CT Outside Record (03/06/2021) Specimen Narrative Performed At This result has an attachment that is n ot available. * XR Outside Record (03/06/2021) Specimen documented in this encounter Visit Diagnoses Not on filedocumented in this encounter
--- OUTSIDE RECORDS SUMMARY | 2021-04-12 06:02 | XMS REPORT | Encounter Summary ---
Author Author [facility] Organization [facility] Address Unknown Phone Unavailable Care Team Providers Care Catering Manager Name Role Phone Self, Jean ROUSE PCP Reason for Visit * Reason Onset Date Comments Procedure Instructions 03/19/2021 CANDELARIA Encounter Details Care Team Description Date Type Department Kristyn De Jesus RN Procedure Instructions (CANDELARIA ) 03/19/2021 Telephone [facility] [address] [facility] [address] [place] [address] Social History Date Tobacco Use Types Packs/Day Years Used Never Smoker Smokeless Tobacco: Never Used Comments Alcohol Use Standard Drinks/Week rarely Yes 0 (1 standard drink = 0.6 o z pure alcohol) Sex Assigned at Date Recorded Female 03/31/2021 7:46 PM CDT documented as of this encounter Miscellaneous Notes * Telephone Encounter - Dede Barone RN - 03/20/2021 12:32 PM CDT Spoke to patient, she v/u and denied questions. Orders placed * Telephone Encounter - Dede Barone RN - 03/20/2021 12:18 PM CDT You are scheduled on 03/27 for your CANDELARIA Please report to the [facility] admitting (main lobby) at 6:45am. PLEASE FOLLOW THE INSTRUCTIONS SPECIFIED BELOW: 1. Please Do Not eat or drink anything after midnight. 2. Lab Work will be drawn prior to the procedure. Patient had blood work done t jil 3. Medication instructions: Morning of: No spironolactone, potassium, furosemide, and all supplements 4. You will not be allowed to drive yourself home, so please make arrangements f or a ride. Friends and/or relatives are asked to remain in the waiting area unt il your procedure has been completed. You should NOT drive or operate machinery for at least 12-14 hours following the procedure , as there may be residual aff ects from the sedative. If you have any questions about this procedure, please don't hesitate to call on e of the nurses at [phone] * Telephone Encounter - Kristyn De Jesus RN - 03/19/2021 2:18 PM CDT Follow up action created. CANDELARIA scheduled on 03/27 ([facility]) at 0800, arrival time of 0645. Dr Chance to perfor m. Pt notified and is ok with date/time/location NURSES: Pt will need pre-procedure COVID testshes aware and is expecting a call documented in this encounter Plan of Treatment Care Team Description Date Type Specialty Mike Steve MD [address] [facility] [address] [place] [address] [phone] 05/03/2021 Appointment Cardiology 05/03/2021 Appointment [place] [address] [facility] [address] [place] [address] [phone] 06/10/2021 Office Visit Cardiology documented as of this encounter Visit Diagnoses Not on filedocumented in this encounter
--- OUTSIDE RECORDS SUMMARY | 2021-04-12 06:02 | XMS REPORT | Encounter Summary ---
Author Author [facility] Organization [facility] Address Unknown Phone Unavailable Care Team Providers Care Farmworker Machine Name Role Phone Sergey, Jean ROUSE PCP Reason for Referral * MRI/CAT/PET Scan (Routine) Referred By Contact Referred To Contact Status Reason Specialty Diagnoses / Procedures Mike Steve MD [address] [facility] [address] [place] [address] [facility] [address] [place] [address] Authorized Cardiology Diagnoses Mitral valve insufficiency, unspecified etiology Mitral annular calcification Preop cardiovascular exam Pre-procedure lab exam P rocedures CV CT Heart gated study Electronically signed by Mike Steve MD at Reason for Visit * Reason Onset Date Comments [facility] Referral 04/05/2021 Encounter Details Care Team Description Date Type Department Pickle CutterRandee LPN [facility] Referral 04/05/2021 Telephone [facility] [address] [id number] Social History Date Tobacco Use Types Packs/Day Years Used Never Smoker Smokeless Tobacco: Never Used Comments Alcohol Use Standard Drinks/Week 1 drink monthly on average Yes 0 (1 standard drink = 0.6 o z pure alcohol) Sex Assigned at Date Recorded Female 03/31/2021 7:46 PM CDT documented as of this encounter Miscellaneous Notes * Telephone Encounter - Randee Bradley LPN - 04/10/2021 7:02 AM CDT Images from the original note were not included. * Addendum Note - Randee Bradley LPN - 04/09/2021 4:44 PM CDT Addended by: RANDEE BRADLEY on: 04/09/2021 04:44 PM Modules accepted: Orders * Telephone Encounter - Randee Bradley LPN - 04/05/2021 4:26 PM CDT Images from the original note were not included. From: Mike Steve <[email or web address]> Sent: Saturday, April 03, 2021 2:55 PM To: Ramón Sanchez <Secure> <[email or web address]>; Lloyd Broderick < [email or web address]> Cc: Randee Bradley <[email or web address]>; Nhi Wallis < [email or web address]> Subject: RE: Joyce Gipson 52 OK, lets bring her to [facility] clinic with a CTA chest Thanks Mike From: Ramón Sanhcez <[employer]> Sent: Saturday, April 03, 2021 2:52 PM To: Mike Steve <[email or web address]>; Lloyd Broderick < [employer]> Subject: Re: Joyce Riderashley 52 WARNING: This message originated from outside of [facility]' email system. DO NOT clic k links or open attachments unless you recognize the sender ([email or web address]) a nd know the content is safe. Yeah. Significant Mac. could repair but not long lasting repair I expect. Would not be able put a ring at all. JRD Get [place] [employer] From: Mike Steve <[email or web address]> Sent: Saturday, April 03, 2021 1:03:51 PM To: Lloyd Broderick <[email or web address]>; Ramón Sanchez <[employer]ure> < [email or web address]> Subject: Joyce Gipson 52 Hi Catarino, You looked at this ladys MR and recommended we see her in Valve Clinic. To joe holmanlavelle are you concerned about her MAC? Thanks Mike documented in this encounter Plan of Treatment Care Team Description Date Type Specialty Mike Steve MD [address] [facility] [address] [place] [address] [phone] 05/03/2021 Appointment Cardiology 05/03/2021 Appointment [place] [address] [facility] [address] [place] [address] [phone] 06/10/2021 Office Visit Cardiology Order Schedule Name Type Priority Associated Diag noses 1 Occurrences starting 04/05/2021 until 04/05/[address] Heart gated study Cardiac Routine Mitral valve Services insufficiency, unspecified etiology Mitral annular calcification Preop cardiovascular exam Pre-procedure lab exam Expected: 04/16/2021, Expires: 2 Basic Metabolic Panel Lab STAT Mitral v alve insufficiency, unspecified etiology Mitral annular calcification Preop cardiovascular exam Pre-procedure lab exam documented as of this encounter Visit Diagnoses Diagnosis Mitral valve insufficiency, unspecified etiology - Primary Mitral annular calcification Mitral valve disorders Preop cardiovascular exam Pre-operative cardiovascular examinatio n Pre-procedure lab exam Pre-procedural laboratory examination documented in this encounter
--- OUTSIDE RECORDS SUMMARY | 2021-04-12 06:02 | XMS REPORT | Encounter Summary ---
Author Author [facility] Organization [facility] Address Unknown Phone Unavailable Care Team Providers Care Crude Oil Driver Name Role Phone Self, Jean ROUSE PCP Reason for Visit * Reason Onset Date Comments Cardiology test results 04/02/2021 Encounter Details Care Team Description Date Type Department Lauren Mireles RN Cardiology test results 04/02/2021 Telephone [facility] [address] [facility] [address] [place] [address] Social History Date Tobacco Use Types Packs/Day Years Used Never Smoker Smokeless Tobacco: Never Used Comments Alcohol Use Standard Drinks/Week rarely Yes 0 (1 standard drink = 0.6 o z pure alcohol) Sex Assigned at Date Recorded Female 03/31/2021 7:46 PM CDT documented as of this encounter Miscellaneous Notes * Telephone Encounter - Lauren Mireles RN - 04/02/2021 9:30 AM CDT The CANDELARIA results/recommendations will be further discussed at upcoming visit with Dr. Broderick on 04/03. Results letter sent to PCP. * Telephone Encounter - Lauren Mireles RN - 04/02/2021 9:30 AM CDT ----- Message from Lloyd Broderick MD sent at 03/28/2021 4:30 PM CDT ----- Thx for looking, we will certainly send [facility] to [facility] ----- Message ----- From: Jame Sanchez MD Sent: 03/28/2021 12:06 PM CDT To: Lloyd Broderick MD, # Faisal Watkins, I looked at a CT chest from 2018. She has terrible MAC. She should be seen in the [facility] clinic so we can see what her clip option might be in conjuncti on with surgery input. Might be difficult to get a good fdc repair. JRD ----- Message ----- From: Lloyd Broderick MD Sent: 03/28/2021 9:43 AM CDT To: Jame Sanchez MD, [facility] Nurses - Team Silver Based on these findings and her clinical occurrence of heart failure strongly silva ggest she had a chordal tear contributor hemodynamic decompensation and admissio n at the outside hospital. Of asked her to see Dr. Sanchez to consider mitral soledad ve repair surgery, I am hopeful based on these images that she will have a high percentage of repair versus replacement. documented in this encounter Plan of Treatment Care Team Description Date Type Specialty Mike Steve MD [address] [facility] [address] [place] [address] [phone] 05/03/2021 Appointment Cardiology 05/03/2021 Appointment [place] [address] [facility] [address] [place] [address] [phone] 06/10/2021 Office Visit Cardiology documented as of this encounter Visit Diagnoses Not on filedocumented in this encounter
--- OUTSIDE RECORDS SUMMARY | 2021-04-12 06:02 | XMS REPORT | Encounter Summary ---
Author Author [facility] Organization [facility] Address Unknown Phone Unavailable Care Team Providers Care Sales Advisory Manager Name Role Phone Self, Jean ROUSE PCP Encounter Details Care Team Description Date Type Department Dede Barone RN 03/20/2021 Orders for [facility] [address] [place] [address] Social History Date Tobacco Use Types Packs/Day Years Used Never Smoker Smokeless Tobacco: Never Used Comments Alcohol Use Standard Drinks/Week rarely Yes 0 (1 standard drink = 0.6 o z pure alcohol) Sex Assigned at Date Recorded Female 03/31/2021 7:46 PM CDT documented as of this encounter Plan of Treatment Care Team Description Date Type Specialty Mike Steve MD [address] [facility] [address] [place] [address] [phone] 05/03/2021 Appointment Cardiology 05/03/2021 Appointment [place] [address] [facility] [address] [place] [address] [phone] 06/10/2021 Office Visit Cardiology documented as of this encounter Visit Diagnoses Not on filedocumented in this encounter
--- NOTE | 2021-04-12 06:18 | ED Cardiac General ---
History of Present Illness General Chief Complaint: Cardiac/General Problems Stated Complaint: HIGH HR/HYPERTENSION Source: patient (MIGUELRTCLEVELAND Gonzalez MD) History of Present Illness Date Seen by Provider: Apr 12, 2021 Time Seen by Provider: 06:15 Initial Comments 70-year-old female presents with concerns for her blood pressure being high and her heart rate been a little elevated. Patient reports that she has a history of severe mitral valve regurgitation. That she was recently diagnosed that had been worsening. She is scheduled in early April to meet the cardiothoracic surgeon to schedule a surgery for replacement. Patient is very very anxious about this. Patient reports that this morning she was laying in bed reading. She had a little heartburn. She then started worrying about her heart. She then had a little bit more stomach discomfort and had to have a bowel movement. She then started checking her blood pressure and pulse. And they started elevating and she got more worried. Patient presents today because she is concerned about her blood pressure heart rate and the heartburn and wanted to be sure that was nothing more. Patient's gets very anxious the more she talks about it. (DALE BRIDGES DO) Allergies and Home Medications Allergies Coded Allergies: amoxicillin (Verified Allergy, Unknown, 03/06/21) clavulanic acid (Verified Allergy, Unknown, 03/06/21) Home Medications Ascorbic Acid 250 Mg Tab.chew, 250 MG PO DAILY, (Reported) Atorvastatin Calcium 20 Mg Tablet, 20 MG PO HS, (Reported) Ca Carbonate/Vitamin D3/Vit K 1 Each Tab.chew, 1 EACH PO DAILY, (Reported) Cholecalciferol (Vitamin D3) 50 Mcg Tab.chew, 50 MCG PO DAILY, (Reported) Ciclopirox Olamine 15 Gm Cream..g., 1 APPLIC TOP BID, (Reported) APPLY TO TOENAILS Fluticasone Propionate 16 Gm [place].susp, 1 SPRAY NSEACH DAILY, (Reported) Folic Acid/Multivit-Minerals 200 Mcg Tab.chew, 200 MCG PO DAILY, (Reported) Furosemide 40 Mg Tablet, 40 MG PO DAILY Prescribed by: ILENE BOURGEOIS on 03/07/21 1346 Ibuprofen 100 Mg Tab.chew, 200 MG PO Q8H PRN for PAIN-MILD (1-4), (Reported) Potassium Chloride 40 Meq/15 Ml Liquid, 10 MEQ PO DAILY Prescribed by: ILENE BOURGEOIS on 03/07/21 1346 Ubidecarenone 50 Mg Tab.chew, 50 MG PO DAILY, (Reported) Patient Home Medication List Home Medication List Reviewed: Yes (DALE BRIDGES DO) Home Medication List Reviewed: Yes (CLEVELAND LONG MD) Review of Systems Review of Systems Constitutional: No chills, No fever EENTM: No Symptoms Reported Respiratory: Denies Cough, Denies Shortness of Air Cardiovascular: See HPI; Denies Chest Pain Gastrointestinal: See HPI; Denies Constipated, Denies Diarrhea; Nausea; Denies Vomiting Genitourinary: No Symptoms Reported Musculoskeletal: no symptoms reported Skin: no symptoms reported Psychiatric/Neurological: See HPI Endocrine: No Symptoms Reported Hematologic/Lymphatic: No Symptoms Reported (DALE BRIDGES DO) Past Sbyrbyt-Iupkiu-Vgezbz Hx Past Medical History Surgery/Hospitalization HX: TUBAL, RIGHT KNEE, WISDOM TEETH High Cholesterol, Valvular Heart Disease (DALE BRIDGES DO) Cardiac: Yes High Cholesterol, Hypertension, Valvular Heart Disease (mitral valve regurgitation) (CLEVELAND LONG MD) Physical Exam Vital Signs Vital Signs - First Documented 04/12/21 05:59 Pulse 90 Resp 18 B/P (MAP) 151/88 (109) Pulse Ox 99 O2 Delivery Room Air (CLEVELAND LONG MD) Vital Signs Capillary Refill : (DALE BRIDGES DO) Height, Weight, BMI Height: '" Weight: lbs. oz. kg; 23.59 BMI Method: General Appearance: No Apparent Distress, Anxious HEENT: Moist Mucous Membranes Respiratory: Lungs Clear, Normal Breath Sounds Cardiovascular: Regular Rate, Rhythm, No Edema Gastrointestinal: Non Tender, Soft Neurologic/Psychiatric: Alert, Oriented x3, No Motor/Sensory Deficits, radiosonde operator II- XII Norm as Tested Skin: Normal Color, Warm/Dry (DALE BRIDGES DO) Progress/Results/Core Measures Results/Orders Lab Results Laboratory Tests Test 04/12/21 06:12 Range/Units White Blood Count 5.0 4.3-11.0 10^3/uL Red Blood Count 4.71 3.80-5.11 10^6/uL Hemoglobin 14.4 11.5-16.0 g/dL Hematocrit 43 35-52 % Mean Corpuscular Volume 92 80-99 fL Mean Corpuscular Hemoglobin 31 25-34 pg Mean Corpuscular Hemoglobin Concent 33 32-36 g/dL Red Cell Distribution Width 13.2 10.0-14.5 % Platelet Count 217 130-400 10^3/uL Mean Platelet Volume 10.3 9.0-12.2 fL Immature Granulocyte % (Auto) 0 % Neutrophils (%) (Auto) 58 42-75 % Lymphocytes (%) (Auto) 28 12-44 % Monocytes (%) (Auto) 12 0-12 % Eosinophils (%) (Auto) 2 0-10 % Basophils (%) (Auto) 1 0-10 % Neutrophils # (Auto) 2.9 1.8-7.8 X 10^3 Lymphocytes # (Auto) 1.4 1.0-4.0 X 10^3 Monocytes # (Auto) 0.6 0.0-1.0 X 10^3 Eosinophils # (Auto) 0.1 0.0-0.3 10^3/uL Basophils # (Auto) 0.0 0.0-0.1 10^3/uL Immature Granulocyte # (Auto) 0.0 0.0-0.1 10^3/uL Sodium Level 136 135-145 MMOL/L Potassium Level 4.0 3.6-5.0 MMOL/L Chloride Level 99 98-107 MMOL/L Carbon Dioxide Level 26 21-32 MMOL/L Anion Gap 11 5-14 MMOL/L Blood Urea Nitrogen 14 7-18 MG/DL Creatinine 0.76 0.60-1.30 MG/DL Estimat Glomerular Filtration Rate 75 BUN/Creatinine Ratio 18 Glucose Level 103 70-105 MG/DL Calcium Level 9.9 8.5-10.1 MG/DL Corrected Calcium 9.5 8.5-10.1 MG/DL Total Bilirubin 0.4 0.1-1.0 MG/DL Aspartate Amino Transf (AST/SGOT) 17 5-34 U/L Alanine Aminotransferase (ALT/SGPT) 18 0-55 U/L Alkaline Phosphatase 87 40-136 U/L Troponin I < 0.30 <0.30 NG/ML Pro-B-Type Natriuretic Peptide 265.5 H <75.0 PG/ML Total Protein 7.0 6.4-8.2 GM/DL Albumin 4.5 3.2-4.5 GM/DL (CLEVELAND LONG MD) Vital Signs/I&O 04/12/21 05:59 Pulse 90 Resp 18 B/P (MAP) 151/88 (109) Pulse Ox 99 O2 Delivery Room Air (CLEVELAND LONG MD) Progress Progress Note #1: Progress Note I assumed care of patient from Dr. Bridges at shift change pending labs and disposition. CXR clear without acute process. ECG shows sinus rhythm with heart rate in 80s without acute ischemic changes and from report appears similar to tracing from February 2021. . Progress Note #2: Time: 08:01 Progress Note Labs are stable without acute elevation of Troponin. CBC without acute significant abnormality. proBNP improved from February 2021 admit. Encourage to f ollow up with Dr. Broderick and continue on medicine as prescribed by him 04/03. Counseled on follow-up and return precautions. Reassured patient that test today returned she was responding to medical treatment and no indication of acute ischemia or heart damage. Heart rate in the 60s and sinus rhythm at discharge and BP improved at discharge. (CLEVELAND LONG MD) Initial ECG Impression Date: Apr 12, 2021 Initial ECG Impression Time: 06:04 Initial ECG Rhythm: Normal Sinus Initial ECG Impression: Nonspecific Changes Comment no acute changes (DALE BRIDGES DO) Diagnostic Imaging Diagonstic Imaging: Xray Plain Films/CT/US/NM/MRI: chest Comments [facility] [place] NAME: BYRON SAXENA [facility] REC#: [id number] PT STATUS: REG ER : 1950 PHYSICIAN: DALE BRIDGES DO ADMIT DATE: 04/12/21/ER FS Draft Date of Exam:04/12/21 CHEST 1 VIEW AP/PA ONLY INDICATION: Chest pain COMPARISON: 03/06/2021 FINDINGS: Single view of the chest demonstrates clear lungs bilaterally. The heart is normal. There is no pneumothorax. The osseous structures are normal. IMPRESSION: Negative chest Dictated on workstation # [id number] Dict: 04/12/21 0641 Trans: 04/12/21 0642 [place] [id number] Interpreted by: VASILIY NAJERA Electronically signed by: Reviewed: Reviewed by Me (CLEVELAND LONG MD) Departure Impression Primary Impression: Palpitations Additional Impressions: Anxiety about health Mitral valve regurgitation Qualified Codes: I34.0 - Nonrheumatic mitral (valve) insufficiency Disposition: 01 HOME, SELF-CARE Condition: Improved Departure-Patient Inst. Decision time for Depature: 08:06 (CLEVELAND LONG MD) Referrals: SELFRICHIE MD (PCP/Family) Primary Care Physician Patient Instructions: Palpitations ED, Anxiety, Adult ED, Mitral Regurgitation Add. Discharge Instructions: Follow up with Dr. Broderick through [facility] for continued concerns. Continue your regular medicines. If having chest pains with sweating, vomiting, and pain going into your left arm then seek medical care for evaluation. All discharge instructions reviewed with patient and/or family. Voiced understanding. DALE BRIDGES DO Apr 12, 2021 06:18 CLEVELAND LONG MD Apr 12, 2021 07:25
[2021-04-12] MEDS ORDERED: FAMOTIDINE 20MG/2ML IV (PEPCID) IV STA (06:24)
--- NOTE | 2021-04-12 06:42 | Diagnostic Imaging Report ---
INDICATION: Chest pain COMPARISON: 03/06/2021 FINDINGS: Single view of the chest demonstrates clear lungs bilaterally. The heart is normal. There is no pneumothorax. The osseous structures are normal. IMPRESSION: Negative chest Dictated by: Dictated on workstation # [id number]
[2021-04-12 07:03] LABS: HEMOGLOBIN 14.4 g/dL (11.5-16.0); MEAN CORPUSCULAR HEMOGLOBIN 31 pg (25-34)
[2021-04-12 07:04] LABS: HEMATOCRIT 43 % (35-52); MEAN CORPUSCULAR HGB CONC 33 g/dL (32-36); MEAN CORPUSCULAR VOLUME 92 fL (80-99); MEAN PLATELET VOLUME 10.3 fL (9.0-12.2); NEUTROPHILS % (AUTO) 58 % (42-75); PLATELET COUNT 217 10^3/uL (130-400)
[2021-04-12 07:05] LABS: BASOPHILS % (AUTO) 1 % (0-10); EOSINOPHILS # (AUTO) 0.1 10^3/uL (0.0-0.3); EOSINOPHILS % (AUTO) 2 % (0-10); LYMPHOCYTES # (AUTO) 1.4 X 10^3 (1.0-4.0); LYMPHOCYTES % (AUTO) 28 % (12-44); MONOCYTES # (AUTO) 0.6 X 10^3 (0.0-1.0); MONOCYTES % (AUTO) 12 % (0-12); NEUTROPHILS # (AUTO) 2.9 X 10^3 (1.8-7.8)
[2021-04-12 07:27] LABS: ALANINE AMINOTRANSFERASE 18 U/L (0-55); ALKALINE PHOSPHATASE 87 U/L (40-136); BILIRUBIN,TOTAL 0.4 MG/DL (0.1-1.0); BUN/CREATININE RATIO 18; CALCIUM 9.9 MG/DL (8.5-10.1); CARBON DIOXIDE 26 MMOL/L (21-32); CHLORIDE 99 MMOL/L (98-107); CREATININE SERUM 0.76 MG/DL (0.60-1.30); GFR ESTIMATED 75; GLUCOSE 103 MG/DL (70-105); SODIUM 136 MMOL/L (135-145)
[2021-04-12 07:28] LABS: ALBUMIN 4.5 GM/DL (3.2-4.5)
[2021-04-12 08:08] VITALS: BP 118/57
== END 2021-04-12 08:09 | disposition home or self-care (01) ==
LOC: EDUNIT# 05:56 → ER FS 05:58
DX: I34.0 Nonrheumatic mitral (valve) insufficiency (principal); F41.8 Other specified anxiety disorders; I10 Essential (primary) hypertension; E78.00 Pure hypercholesterolemia, unspecified; Z79.899 Other long term (current) drug therapy
CPT/HCPCS: 36415; 71045; 80053; 83880; 84484; 85025; 93005

== ENCOUNTER 2021-05-12 03:56 | Emergency (ER) | payer MEDICARE, OTHER ==
[~2021-05-12] VITALS: Ht 162.5 cm; Wt 55.4 kg
--- OUTSIDE RECORDS SUMMARY | 2021-05-12 04:02 | XMS REPORT | Encounter Summary ---
Author Author [facility] Organization [facility] Address Unknown Phone Unavailable Care Team Providers Care Transition Advisor Name Role Phone Self, Jean ROUSE PCP Reason for Visit * Reason Comments Mitral Valve Disease MR and MAC Encounter Details Care Team Description Date Type Department Mike Steve MD [address] [facility] [address] [place] [address] [phone] Jame Rodriguez MD [address] [facility] [address] [place] [address] [phone] Nonrheumatic mitral valve regurgitation (Primary Dx); Mixed hyperlipidemia; Essential familial hyper[facility] [address] [facility], [address] [id number] Social History Date Tobacco Use Types Packs/Day Years Used Never Smoker Smokeless Tobacco: Never Used Comments Alcohol Use Standard Drinks/Week 1 drink monthly on average Yes 0 (1 standard drink = 0.6 o z pure alcohol) Sex Assigned at Date Recorded Female 03/31/2021 7:46 PM CDT documented as of this encounter Last Filed Vital Signs Reading Time Taken Comments Vital Sign 140/78 05/03/2021 10:17 AM CDT Blood Pressure 108 05/03/2021 10:17 AM CDT Pulse 36.6 C (97.9 F) 05/03/2021 10:17 AM CDT Temperature 20 05/03/2021 10:17 AM CDT Respiratory Rate 93% 05/03/2021 10:17 AM CDT Oxygen Saturation - - Inhaled Oxygen Concentration 56.5 kg (124 lb 9.6 oz) 05/03/2021 10:17 AM CDT Weight 162.6 cm (5' 4") 05/03/2021 10:17 AM CDT Height 21.39 05/03/2021 10:17 AM CDT Body Mass Index documented in this encounter Medications at Time of Discharge Start Date End Date Medication Sig Dispensed Refills acetaminophen (TYLENOL) Take 500 mg 0 500 MG tablet by mouth every 6 (six) hours as needed for pain. ascorbic acid (VITAMIN C) Take 250 mg 0 500 mg tablet by mouth daily. 05/11/2021 aspirin 81 MG EC tablet Take 1 tablet 30 tablet 12 (81 mg total) by mouth daily. 05/10/2021 atorvastatin (LIPITOR) 80 Take 1 tablet 90 tablet 3 MG tablet (80 mg total) by mouth daily. 10/25/2017 calcium phosphate-vitamin Chew 1 tablet 0 D3 250 mg calcium- 500 daily. unit Chew 04/03/2021 caRVEDILoL (COREG) 3.125 Take 1 tablet 180 tablet 3 MG tablet (3.125 mg total) by mouth 2 (two) times a day with meals. 10/25/2017 cholecalciferol, vitamin Take by mouth 0 D3, (VITAMIN D3 ORAL) daily. 02/12/2021 ciclopirox (LOPROX) 0.77 APPLY CREAM 0 % cream TOPICALLY TWICE DAILY TO TOENAILS FOR 30 DAYS 01/15/2017 coenzyme Q10 200 mg Take 200 mg 0 capsule by mouth daily. 04/03/2021 furosemide (LASIX) 40 MG Take 1 tablet 90 tablet 3 tablet (40 mg total) by mouth daily. 08/11/2012 ibuprofen (ADVIL,MOTRIN) take 1 tablet 90 0 200 MG tablet (200MG) by oral route every 6 hours as needed with food 02/14/2017 multivit-min/folic Take by mouth 0 acid/jbi297 (ALIVE daily. WOMEN'S GUMMY VITAMINS ORAL) 04/11/2021 potassium chloride Take 3.8 mL 342 mL 1 (KAYCIEL) 20 mEq/15 mL (5.0667 mEq solution total) by mouth daily. 03/13/2021 spironolactone Take 0.5 45 tablet 3 (ALDACTONE) 25 MG tablet tablets (12.5 mg total) by mouth daily. 03/13/2021 05/10/2021 atorvastatin (LIPITOR) 20 Take 1 tablet 90 tablet 3 MG tablet (20 mg total) by mouth daily. 10/20/2014 05/10/2021 fluticasone (FLONASE) 50 spray 1 spray 1 0 mcg/actuation nasal spray by intranasal route every day in each nostril documented as of this encounter Progress Notes * Jame Rodriguez MD - 05/03/2021 10:45 AM CDT [facility] Appointment Date: 05/03/2021 Jean Rincon MD [address] [facility] [id number] RE: Joyce Gipson : 1950 Visit provider: Jame Rodriguez MD Dear Jean Rincon MD, I had the pleasure of seeing Joyce Gipson in the office today. She is a(n) 70 y .o. female and presents with the following chief complaint(s): Mitral Valve Dise ase (MR and MAC) HPI: Ms. Gipson is a very pleasant 70-year-old woman who presents with her f or evaluation in the multidisciplinary valve clinic. She is referred by Dr. Chitra trujillo for evaluation of severe mitral regurgitation. She was [facility] in [facility] but had a sudden episode at night of waking with shortness o f breath. Since that time, she has had progressive symptoms of dyspnea most pro minently with exertion, consistent with NYHA class II diastolic heart failure. She had an echocardiogram that showed mitral valve prolapse with partially flail posterior leaflet (P2 scallop) and eccentric anterior directed jet of mitral re gurgitation. She also had RVSP of 52 mmHg. She denies any chest pain, dizzines s, or syncope. Patient Active Problem List Diagnosis SNOMED CT(R) Heart palpitations PALPITATIONS Mitral valve prolapse MITRAL VALVE PROLAPSE Mixed hyperlipidemia MIXED HYPERLIPIDEMIA Agatston CAC score 100-199 CALCIFICATION OF CORONARY ARTERY Abnormal screening CT of chest CT OF CHEST ABNORMAL Raynaud's disease RAYNAUD'S DISEASE Primary osteoarthritis of right knee OSTEOARTHRITIS OF RIGHT KNEE JOINT Coronary artery calcification of nez perce artery CALCIFICATION OF CORONARY ART AIDE Mitral valve regurgitation MITRAL VALVE REGURGITATION Pulmonary HTN (HCC) PULMONARY HYPERTENSION Essential familial hyperlipidemia FAMILIAL COMBINED HYPERLIPIDEMIA Past Medical History: Diagnosis Date Acute cystitis without hematuria 12/2017 Agatston CAC score 100-199 09/24/2017 Total Agatston Score: 165 (CT: Delmis, Luis, OLIVIER) Agatston CAC score, <100 06/11/2012 Total Agatston Score: 61.2 Coronary artery calcification of nez perce artery Heart palpitations Mitral valve prolapse Mitral valve regurgitation Mixed hyperlipidemia Primary osteoarthritis of right knee Pulmonary HTN (HCC) Raynaud's disease Rectocele Shortness of breath Past Surgical History: Procedure Laterality Date ARTHROSCOPY, KNEE Right 1999 BREAST BIOPSY benign TUBAL LIGATION 1985 Final Medications: Current Outpatient Medications Medication Sig Dispense Refill acetaminophen (TYLENOL) 500 MG tablet Take 500 mg by mouth every 6 (six) jose alfredo rs as needed for pain. ascorbic acid (VITAMIN C) 500 mg tablet Take 250 mg by mouth daily. atorvastatin (LIPITOR) 20 MG tablet Take 1 tablet (20 mg total) by mouth chloe ly. 90 tablet 3 calcium phosphate-vitamin D3 250 mg calcium- 500 unit Chew Chew 1 tablet chloe ly. caRVEDILoL (COREG) 3.125 MG tablet Take 1 tablet (3.125 mg total) by mouth 2 (two) times a day with meals. 180 tablet 3 cholecalciferol, vitamin D3, (VITAMIN D3 ORAL) Take [...] as needed with food 90 0 multivit-min/folic acid/eew191 (ALIVE WOMEN'S GUMMY VITAMINS ORAL) Take by m outh daily. potassium chloride (KAYCIEL) 20 mEq/15 mL solution Take 3.8 mL (5.0667 mEq t otal) by mouth daily. 342 mL 1 spironolactone (ALDACTONE) 25 MG tablet Take 0.5 tablets (12.5 mg total) by mouth daily. 45 tablet 3 No current facility-administered medications for this encounter. Allergies Allergen Reactions Amoxicillin-Pot Clavulanate Nausea And Vomiting Can take Amoxicillin but not amoxicillin-pot clavulante or Augmentin per patie nt. Family History Problem Relation Age of Onset Hyperlipidemia Brother Hypertension Brother Hyperlipidemia Brother Hypertension Mother Hypertension Father Cancer Father Abdominal Social History: Social History Tobacco Use Smoking status: Never Smoker Smokeless tobacco: Never Used Substance Use Topics Alcohol use: Yes Comment: 1 drink monthly on average Drug use: No Review of Systems Constitutional: Positive for malaise/fatigue. Negative for chills, decreased jennyfer etite, diaphoresis, weight gain and weight loss. HENT: Negative for nosebleeds and sore throat. Eyes: Negative for blurred vision, double vision, vision loss in left eye and vi indigo loss in right eye. Cardiovascular: Positive for dyspnea on exertion. Negative for chest pain, irreg ular heartbeat, leg swelling, near-syncope, orthopnea, palpitations and syncope. Respiratory: Positive for shortness of breath. Negative for hemoptysis, sleep di sturbances due to breathing and snoring. Endocrine: Positive for cold intolerance. Negative for heat intolerance. Hematologic/Lymphatic: Negative for bleeding problem. Does not bruise/bleed easi ly. Skin: Negative for poor wound healing, rash and skin cancer. Musculoskeletal: Negative for falls and muscle weakness. Gastrointestinal: Negative for bloating, hematemesis and hematochezia. Genitourinary: Negative for hematuria. Neurological: Negative for dizziness, light-headedness, loss of balance, numbnes s, paresthesias and weakness. Psychiatric/Behavioral: Negative for altered mental status and depression. Allergic/Immunologic: Negative for HIV exposure and persistent infections. Vitals 05/03/2021 BP 140/78 Pulse 108 Resp 20 Height 5' 4" Weight 124 lb 9.6 oz SpO2 93 BMI: Body mass index is 21.39 kg/m. Physical Exam Constitutional: General: She is not in acute distress. Appearance: Normal appearance. HENT: Head: Normocephalic and atraumatic. Mouth/Throat: Pharynx: Oropharynx is clear. Eyes: Extraocular Movements: Extraocular movements intact. Pupils: Pupils are equal, round, and reactive to light. Cardiovascular: Rate and Rhythm: Normal rate. Heart sounds: Murmur heard. Pulmonary: Effort: No respiratory distress. Breath sounds: No wheezing or rales. Comments: Decreased breath sounds bilaterally Abdominal: General: There is no distension. Tenderness: There is no abdominal tenderness. There is no guarding. Comments: Soft non tender abdomen Musculoskeletal: General: No tenderness. Cervical back: No rigidity or tenderness. Skin: General: Skin is warm. Coloration: Skin is not jaundiced. Neurological: Mental Status: She is alert. Cranial Nerves: No cranial nerve deficit. Cholesterol Date Value 02/14/2020 210 mg/dL (A) [...] Final 12/20/2018 12:00 AM 129 mg/dL Final Encounter Diagnoses Name Primary? Nonrheumatic mitral valve regurgitation Yes Mixed hyperlipidemia Essential familial hyperlipidemia Impression and Plan: 1. Severe mitral Regurgitation: The patient was seen in our multidisciplinary cl in in conjunction with Dr. Umang Sanchez from cardiothoracic surgery. We pers onally reviewed the patient's transthoracic echocardiogram, CT, and trans-esopha geal echocardiogram. We also reviewed the pathophysiology of mitral regurgitatio n with the patient and her . She has severe degenerative mitral regurgit ation due to P2 prolapse with a partially flail leaflet with symptoms consistent with NYHA II diastolic heart failure and palpitations; therefore, mitral valve repair is recommended. The patient's STS predicted risk of mortality related to mitral valve repair/replacement surgery is 1.8%, and she is at low risk of mort ality with traditional open heart surgery. Therefore, we recommend surgical mart ral valve repair. The benefits and risks of this procedure were discussed, and she would like to proceed. We plan to obtain a coronary angiogram prior to the s urgery. If PCI of straightforward stenoses are indicated, they can be performed at that time, specifically because Dr. Sanchez is planning a lateral thoracotomy approach to her mitral valve repair / replacement, which can be performed while on dual antiplatelet therapy. 2. Hypertension: Controlled on carvedilol and diuretics. 3. Hyperlipidemia: Controlled with atorvastatin. Treatment goals, progress and next steps, as above, were discussed and mutually agreed upon with the patient/family. Thank you for allowing me to participate in Joyce Gipson's care. If I can be o f any further assistance, please do not hesitate to contact me. Sincerely, Jame Rodriguez MD Dictated by Robin Sousa MD /angi documented in this encounter Plan of Treatment Care Team Description Date Type Specialty 05/20/2021 Lab Lab 05/20/2021 [place] [address] [address] [phone] 06/10/2021 Office Visit Cardiology documented as of this encounter Visit Diagnoses Diagnosis Nonrheumatic mitral valve regurgitation - Primary Mixed hyperlipidemia Essential familial hyperlipidemia documented in this encounter
--- OUTSIDE RECORDS SUMMARY | 2021-05-12 04:02 | XMS REPORT | Encounter Summary ---
Author Author [facility] Organization [facility] Address Unknown Phone Unavailable Care Team Providers Care Political Advisor Name Role Phone Self, Jean ROUSE PCP Encounter Details Care Team Description Date Type Department Jame Rodriguez MD [address] [place] [address] [phone] Mitral valve insufficiency, unspecified etiology 05/03/2021 [facility] [address] [place] [address] Social History Date Tobacco Use Types Packs/Day [...] 05/20/2021 [place] [address] [place] [address] [phone] 06/10/2021 Office Visit Cardiology documented as of this encounter Procedures Comments Procedure Name Priority Date/Time Associated Diag nosis PROTHROMBIN TIME/INR Routine 05/03/2021 Mitral va lve 1:17 PM CDT insufficiency, unspecified etiology CBC AND DIFF (MANUAL DIFF Routine 05/03/2021 Mitr al valve IF NECESSARY) 1:17 PM CDT insufficiency, unspecified etiology BASIC METABOLIC PANEL Routine 05/03/2021 Mitral v alve 1:17 PM CDT insufficiency, unspecified etiology documented in this encounter Results * Prothrombin Time/INR (05/03/2021 1:17 PM CDT) Protime 12.3 11.4 - 15.0 sec [facility] INR 0.9 0.8 - 1.2 [facility] Specimen Blood Performing Organization Address City/State/ZIP Code P rocky Number [address] [address] LABORATORIES [facility] [address] [place] [id number] * CBC and Diff (manual diff if necessary) (05/03/2021 1:17 PM CDT) WBC 6.58 4.00 - 11.00 TH/uL [facility] RBC 4.82 4.00 - 5.00 MIL/uL [facility] Hemoglobin 14.9 12.0 - 15.0 g/dL [facility] Hematocrit 44 36 - 45 % [facility] MCV 92 80.0 - 99.0 fL [facility] MCH 31 27.0 - 34.0 pg [facility] MCHC 34 32 - 36 % [facility] RDW 13.2 11.5 - 14.5 % [facility] Platelet Count 215 140 - 400 TH/uL [facility] MPV 11.2 9.4 - 12.3 fL [facility] Nucleated RBCs 0 0 - 0 /100 [facility] % Neutrophils 64 45 - 78 % [facility] %Lymphocytes 23 15 - 47 % [facility] % Monocytes 11 0 - 12 % [facility] %Eosinophils 3 0 - 7 % [facility] %Basophils 1 0 - 2 % [facility] % Imm Grans 0 0 - 1 % [facility] # Granulocytes 4.20 1.70 - 6.80 TH/uL [facility] # Lymphocytes 1.49 1.00 - 3.30 TH/uL [facility] # Monocytes 0.69 0.20 - 0.90 TH/uL [facility] # Eosinophils 0.17 0.00 - 0.40 TH/uL [facility] # Basophils 0.03 0.00 - 0.10 TH/uL [facility] Specimen Blood Performing Organization Address City/State/ZIP Code P rocky Number [address] [address] LABORATORIES [facility] [address] [place] [id number] * Basic Metabolic Panel (05/03/2021 1:17 PM CDT) Sodium 137 133 - 147 MEQ/L [facility] Potassium 4.3 3.5 - 5.3 MEQ/L [facility] Chloride 102 96 - 112 MEQ/L [facility] Carbon Dioxide 23 20 - 32 MEQ/L [facility] Anion Gap 13 5 - 17 [facility] Calcium 10.2 8.4 - 10.5 mg/dL [facility] Glucose 98 70 - 100 mg/dL [facility] Blood Urea 16 7 - 26 mg/dL [facility] Creatinine 0.6 0.4 - 1.1 mg/dL [facility] eGFR Female AA 119 60 - 200 [facility] mL/min/1.73sq [facility] eGFR Female 99 60 - 200 [facility] Non-AA mL/min/1.73sq [facility] Specimen Blood Performing Organization Address City/[facility]/ZIP Code P rocky Number [facility] [address] [place] [address] LABORATORIES [facility] [address] [place] [id number] documented in this encounter Visit Diagnoses Diagnosis Mitral valve insufficiency, unspecified etiology documented in this encounter
--- OUTSIDE RECORDS SUMMARY | 2021-05-12 04:02 | XMS REPORT | Clinical Summary ---
Author Author [facility] Organization [facility] Address Unknown Phone Unavailable Care Team Providers Care Side Trimmer Name Role Phone Self, Jean ROUSE PCP Allergies Comments Active Allergy Reactions Severity Noted Date Can take Amoxicillin but not amoxicillin-pot clavulante or Augmentin per patient. Amoxicillin-Pot Nausea And Low 10/23/2014 Clavulanate Vomiting Medications End Date Status Medication Sig Dispensed Refills Start Date Active ibuprofen (ADVIL,MOTRIN) take 1 tablet 90 [...] daily. Active multivit-min/folic Take by mouth 0 acid/[id number] (ALIVE daily. 7 WOMEN'S GUMMY VITAMINS ORAL) Active ascorbic acid (VITAMIN C) Take 250 mg 0 500 mg tablet by mouth daily. Active ciclopirox (LOPROX) 0.77 APPLY CREAM 0 02/12 % cream TOPICALLY 1 TWICE DAILY TO TOENAILS FOR 30 DAYS Active spironolactone Take 0.5 45 tablet 3 (ALDACTONE) 25 MG tablet tablets (12.5 1 mg total) by mouth daily. Active acetaminophen (TYLENOL) Take 500 mg 0 500 MG tablet by mouth every 6 (six) hours as needed for pain. Active caRVEDILoL (COREG) 3.125 Take 1 tablet 180 tablet 3 202 MG tablet (3.125 mg 1 total) by mouth 2 (two) times a day with meals. Active furosemide (LASIX) 40 MG Take 1 tablet 90 tablet 3 tablet (40 mg total) 1 by mouth daily. Active potassium chloride Take 3.8 mL 342 mL 1 02 (KAYCIEL) 20 mEq/15 mL (5.0667 mEq 1 solution total) by mouth daily. Active atorvastatin (LIPITOR) 80 Take 1 tablet 90 tablet 3 MG tablet (80 mg total) 1 by mouth daily. Active aspirin 81 MG EC tablet Take 1 tablet 30 tablet 12 (81 mg total) 1 by mouth daily. 05/10/2021 Discontinued (Stop Taking at Discharge) fluticasone (FLONASE) 50 spray 1 spray 1 0 mcg/actuation nasal spray by intranasal 5 route every day in each nostril 05/10/2021 Discontinued (Reorder) atorvastatin (LIPITOR) 20 Take 1 tablet 90 tablet 3 MG tablet (20 mg total) 1 by mouth daily. Active Problems Problem Noted Date Essential familial hyperlipidemia 05/03/[address] of chest 01/12/2018 Agatston CAC score 100-199 09/24/2017 Overview: Formatting of this note might be differ ent from the original. Total Agatston Score: 165 (CT: Luis Benites [place]) Mitral valve prolapse 12/19/2015 Overview: Formatting of this note might be differ ent from the original. 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 Eccentric jet of moderate (2+) regurgitation Primary osteoarthritis of right knee 07/09/2015 Heart palpitations Mixed hyperlipidemia Raynaud's disease Coronary artery calcification of chitimacha artery Mitral valve regurgitation Pulmonary HTN Resolved Problems Problem Noted Date Resolved Date Acute cystitis without hematuria 01/07/201803/11 Moderate mitral regurgitation 01/09/2017 03/11/20 21 Agatston CAC score 100-199 06/11/2012 01/12/2018 Overview: Formatting of this note might be differ ent from the original. Total Agatston Score: 165 (CT: Luis Benites [place]) Mixed hyperlipidemia 02/23/2019 Shortness of breath 03/11/2021 Tricuspid valve regurgitation 05/02/2021 Encounters Care Team Description Date Type Specialty Amanuel Dickens III, MD CORONARY ANGIOGRAPHY 05/10/2021 Surgery Cardiology Amanuel Dickens III, MD Mitral valve insufficiency, unspecified etiology 05/10/2021 Hospital Cardiology Encounter Elsa Sanchez MD Encounter for screening laboratory testi ng for COVID-19 virus (Primary Dx) 05/09/2021 Orders Only Cardiothoracic Surg Elsa Stephen MD Mitral valve insufficiency, unspecified etiology 05/08/2021 Hospital Lab Encounter Encounter for preoperative s creening laboratory testing for COVID-19 virus (Primary Dx) 05/08/2021 Lab Primary Care Gabriela Andrade FNP 05/08/2021 Orders Only Valve and Vascular Elsa Rodriguez MD Mitral valve insufficiency, unspecified etiology 05/03/2021 Lab Lab Elsa Sanchez MD Mitral valve stenosis, unspecified etiol ogy 05/03/2021 Imaging Radiology Appointment Lloyd Carrera MD Davis, John, MD Agatston CAC score 100-199; Heart palpitations; Mitral valve prolapse; Nonrheumatic mitral valve regurgitation 05/03/2021 Hospital Valve and Vascular Encounter Mike Steve MD Saxon, John, MD Nonrheumatic mitral valve regurgitation (Primary Dx); Mixed hyperlipidemia; Essential familial hyperlipidemia 05/03/2021 Hospital Valve and Vascular Encounter Mike Steve MD Mitral valve insufficiency, unspecified etiology; Mitral annular calcification; Preop cardiovascular exam; Pre-procedure lab exam 05/03/2021 Hospital Cardiology Encounter Elsa Sanchez MD Mitral valve stenosis, unspecified etiol ogy (Primary Dx) 05/03/2021 Transcribe Radiology Orders Nhi Wallis RN [facility] consult 05/03/2021 Telephone Valve and Vascular Sera Jim RN 05/02/2021 Abstract Cardiology Lloyd Carrera MD 04/15/2021 Documentation Cardiology Randee Maynard LPN [facility] Referral 04/05/2021 Telephone Valve and Vascular [...] 100-199; Mitral valve insufficiency, unspecified etiology 03/27/2021 Hospital Cardiothoracic Surg ledy Encounter Kristyn Whitfield RN Returning patient call 03/22/2021 Telephone Cardiology Dede Barone RN 03/20/2021 Orders for Cardiology [facility] Kristyn Whitfield RN Cardiology test results [...] Months Immunizations Name Administration Dates Next Due Influenza QIV 05/10/2021 (adjuvanted) IM Moderna Sars-cov-2 10/30/2020, 09/29/2020 Family History Medical History Relation Name Comments Hyperlipidemia Brother Hyperlipidemia Brother Hypertension Brother Cancer Father Abdominal Hypertension Father Hypertension Mother Relation Name Status Comments Brother Alive Brother Alive Father Cause of was Cancer at age 70. (Age 70) Mother (Age 94) Social History Date Tobacco Use Types Packs/Day Years Used Never Smoker Smokeless Tobacco: Never Used Comments Alcohol Use Standard Drinks/Week 1 drink monthly on average Yes 0 (1 standard drink = 0.6 o z pure alcohol) Sex Assigned at Date Recorded Female 03/31/2021 7:46 PM CDT Last Filed Vital Signs Reading Time Taken Comments Vital Sign 126/72 05/10/2021 2:00 PM CDT Blood Pressure 80 05/10/2021 2:00 PM CDT Pulse 36.9 C (98.5 F) 05/10/2021 11:18 AM CDT Temperature 18 05/10/2021 2:00 PM CDT Respiratory Rate 94% 05/10/2021 2:00 PM CDT Oxygen Saturation - - Inhaled Oxygen Concentration 56.2 kg (124 lb) 05/10/2021 8:39 AM CDT Weight 162.6 cm (5' 4") 05/10/2021 8:39 AM CDT Height 21.28 05/10/2021 8:39 AM CDT Body Mass Index Plan of Treatment Care Team Description Date Type Specialty 05/20/2021 Lab Lab 05/20/2021 [place] [address] [place] [address] [phone] 06/10/2021 Office Visit Cardiology Health Maintenance Due [...] Advance 10/20/2016 Directive Influenza Vaccine (#1) 2021 05/10/2021, 05/18/2020, 05/18/2020, Additional history exists Pneumococcal Vaccine: 65+ Completed 05/21/2017 Years COVID-19 Vaccine Completed 10/30/2020, 09/29/2020 Procedures Comments Procedure Name Priority Date/Time Associated Diag nosis CARDIAC CATHETERIZATION Routine 05/10/2021 Mitral valve 11:09 AM CDT insufficiency, unspecified etiology CARDIAC CATHETERIZATION Routine 05/10/2021 Mitral valve 11:09 AM CDT insufficiency, unspecified etiology ECG Routine 05/10/2021 9:19 AM CDT SARS-COV-2, LETY Routine 05/08/2021 Mitral valve (COVID-19) 9:41 PM CDT insufficiency, unspecified etiology XR CHEST 2 VIEWS (PA AND Routine 05/03/2021 [place] valve stenosis, LATERAL) 1:23 PM CDT unspecified etiolog y PROTHROMBIN TIME/INR Routine 05/03/2021 Mitral va lve 1:17 PM CDT insufficiency, unspecified etiology CBC AND DIFF (MANUAL DIFF Routine 05/03/2021 Mitr al valve IF NECESSARY) 1:17 PM CDT insufficiency, unspecified etiology BASIC METABOLIC PANEL Routine 05/03/2021 Mitral v alve 1:17 PM CDT insufficiency, unspecified etiology CV CT HEART Routine 05/03/2021 Mitral valve 9:16 AM CDT insufficiency, unspecified etiology Mitral annular calcification Preop cardiovascular exam Pre-procedure lab exam ECHO TRANSESOPHAGEAL WITH Routine 03/27/2021 Mitr al [...] 03/06/2021 from Last 3 Months Results * Cardiac catheterization (05/10/2021 11:09 AM CDT) Specimen Narrative Performed At [facility] Summary: Left Main - 25% ostial LAD -long 30% proximal involving D1 with 50% ostial D1 LCX - minor irregularities Ramus - moderate size and normal RCA - large dominant with 95% eccent corinna ostial with pressure damping and persistent after IC NTG LVEDP of 18-20 Recommendations: Valve team follow up Discussed with Dr. Rodriguez and given high grade ostial RCA option of MV repair with CABG will be considered rat her than PCI and MV repair per Dr. Sanchez' review. Will boost atorvastatin to 40 mg and th en 80 mg if tolerates. Procedure Data: Estimated Blood Loss: No significant blood loss Additional procedural details availa ble in the full procedure log. Performing Organization Address City/State/ZIP Code P rocky Number [facility] * Electrocardiogram (ECG) (05/10/2021 9:19 AM CDT) QRSd 92 [facility] QT 404 [facility] QTC 458 [facility] ECGHR 77 [facility] ECGPR 176 [facility] Specimen Narrative Performed At [facility] Test Date: 2021-05-10 Pat Name: JOYCE GIPSON Department: [facility] Room: [facility] CV LAB POOL ROOMS Gender: Female Lending Manager: [id number] : 1950 Requested By: AMANUEL DICKENS Order Number: [id number] Reading MD: Measurements Intervals [place] Rate: 77 P: 63 OH: 176 QRS: 32 QRSD: 92 T: 53 QT: 404 QTc: 458 Interpretive Statements SINUS RHYTHM Procedure Note Interface, External Ris In - 05/10/2021 9:20 AM CDT [facility] Test Date: 2021-05-10 Pat Name: JOYCE GIPSON Department: [facility] Room: [facility] CV LAB POOL ROOMS Gender: Female Lending Manager: [id number] : 1950 Requested By: AMANUEL DICKENS Order Number: [id number] Reading MD: Measurements Intervals [place] Rate: 77 P: 63 OH: 176 QRS: 32 QRSD: 92 T: 53 QT: 404 QTc: 458 Interpretive Statements SINUS RHYTHM Performing Organization Address City/[facility]/ZIP Code P rocky Number [facility] * SARS-COV-2, LETY (COVID-19) (05/08/2021 9:41 PM CDT) SARS-CoV-2 PCR NegativeComment: This RT-PCR Negative [facility] test has been authorized by Hospital Lab the FDA under an Emergency Use Authorization (EUA) for use by authorized laboratories. Performed on the HexAirbot AptFrazr SARS-CoV-2 assay, which utilizes Circus Train Supervisor Mediated Amplification (TMA) technology Specimen NASOPHARYNGEAL SWAB Performing Organization Address [facility] P rocky Number [address] [address] LABORATORIES [facility] [address] [place] [id number] * XR Chest 2 views (PA and lateral) (05/03/2021 1:23 PM CDT) Only the most recent of 2 results within the time period is included. Specimen Impressions Performed At Spiculated right apical nodular opacity may be artifa ctual CAREN or due to pulmonary nodule. Consider fu rther characterization with contrast enhanced chest CT.. READING SITE: [facility] Narrative Performed At Patient: JOYCE GIPSON Sex#: F #: 1950 Derrek#: [id number] Location: [facility] XRAY [id number] Ordering Provider: ELSA SANCHEZ Procedure Requested: [id number] XR CHEST 2 VIEWS (PA AND LATERAL) Reason for Exam: Mitral valve stenosi s, unspecified etiology Exam Ordered: 05/03/2021 12 40 Begin exam date/time: 05/03/2021 132 2 Exam Date/Time: 05/03/2021 132 3 XR CHEST 2 VIEWS (PA AND LATERAL) INDICATION: Mitral valve stenosis, unsp ecified etiology. COMPARISON STUDY: 03/13/2021. FINDINGS: Lungs: Spiculated right apical nodular opacity. Pleura: Stable pleural spaces. Heart and Mediastinum: Stable heart and mediastinum. Bones and soft tissues: Stable regional skeleton. Procedure Note Interface, Rad Results In - 05/07/2021 1:05 PM CDT Patient: JOYCE GIPSON Sex#: F #: 1950 Derrek#: [id number] Location: [facility] XRAY Ordering Provider: ELSA SANCHEZ Procedure Requested: [id number] XR CHEST 2 VIEWS (PA AND LATERAL) Reason for Exam: Mitral valve stenosis, unspecified etiology Exam Ordered: 05/03/2021 1240 Begin exam date/time: 05/03/2021 1322 Exam Date/Time: 05/03/2021 1323 XR CHEST 2 VIEWS (PA AND LATERAL) INDICATION: Mitral valve stenosis, unspecified etiology. COMPARISON STUDY: 03/13/2021. FINDINGS: Lungs: Spiculated right apical nodular opacity. Pleura: Stable pleural spaces. Heart and Mediastinum: Stable heart and mediastinum. Bones and soft tissues: Stable regional skeleton. IMPRESSION Spiculated right apical nodular opacity may be artifactual or due to pulmonary nodule. Consider further characterization with contrast enhanced chest CT.. READING SITE: [facility] Performing Organization Address City/State/ZIP Code P rocky Number [facility] * Prothrombin Time/INR (05/03/2021 1:17 PM CDT) Protime 12.3 11.4 - 15.0 sec [facility] INR 0.9 0.8 - 1.2 [facility] Specimen Blood Performing Organization Address City/State/ZIP Code P rocky Number [facility] [address] [place] [address] LABORATORIES [facility] [address] [place] [phone] * CBC and Diff (manual diff if necessary) (05/03/2021 1:17 PM CDT) Only the most recent of 2 results within the time period is included. WBC 6.58 4.00 - 11.00 TH/uL [facility] RBC 4.82 4.00 - 5.00 MIL/uL [facility] Hemoglobin 14.9 12.0 - 15.0 g/dL [facility] Hematocrit 44 36 - 45 % [facility] MCV 92 80.0 - 99.0 fL [facility] MCH 31 27.0 - 34.0 pg [facility] MCHC 34 32 - 36 % [facility] RDW 13.2 11.5 - 14.5 % [facility] Platelet Count 215 140 - 400 TH/uL [facility] MPV 11.2 9.4 - 12.3 fL [facility] Nucleated RBCs 0 0 - 0 /100 [facility] % Neutrophils 64 45 - 78 % [facility] %Lymphocytes 23 15 - 47 % [facility] % Monocytes 11 0 - 12 % [facility] %Eosinophils 3 0 - 7 % [facility] %Basophils 1 0 - 2 % [facility] % Imm Grans 0 0 - 1 % [facility] # Granulocytes 4.20 1.70 - 6.80 TH/uL [facility] # Lymphocytes 1.49 1.00 - 3.30 TH/uL [facility] # Monocytes 0.69 0.20 - 0.90 TH/uL [facility] # Eosinophils 0.17 0.00 - 0.40 TH/uL [facility] # Basophils 0.03 0.00 - 0.10 TH/uL [facility] Specimen Blood Performing Organization Address City/State/ZIP Code P rocky Number [address] [address] LABORATORIES [facility] [address] [place] [address] * Basic Metabolic Panel (05/03/2021 1:17 PM CDT) Sodium 137 133 - 147 MEQ/L [facility] Potassium 4.3 3.5 - 5.3 MEQ/L [facility] Chloride 102 96 - 112 MEQ/L [facility] Carbon Dioxide 23 20 - 32 MEQ/L [facility] Anion Gap 13 5 - 17 [facility] Calcium 10.2 8.4 - 10.5 mg/dL [facility] Glucose 98 70 - 100 mg/dL [facility] Blood Urea 16 7 - 26 mg/dL [facility] Creatinine 0.6 0.4 - 1.1 mg/dL [facility] eGFR Female AA 119 60 - 200 [facility] mL/min/1.73sq [facility] eGFR Female 99 60 - 200 [facility] Non-AA mL/min/1.73sq [facility] Specimen Blood Performing Organization Address City/State/ZIP Code P rocky Number [address] [address] LABORATORIES [facility] [address] [place] [address] * CV CT Heart gated study (05/03/2021 9:16 AM CDT) Specimen Narrative Performed At [facility] NAME: JOYCE GIPSON : [id number] GENDER: F ACCOUNT NUM: [id number] TEST: CTA OF THE HEART GATED TEST DATE: TEST LOCATION: [facility] INPATIENT: Outpatient REFERRING PHYSICIAN: Mike tyler MD REASON FOR TEST: Mitral Valve Disorde r INDICATION FOR TEST: N/A No Report Template Found TECHNIQUE: N/A INTERPRETATION: Chambers: The right atrium is grossly normal size . The right ventricle demonstrates grossly normal size and systolic functi on. Left atrial enlargement. Left atrial appendage is free of thrombus. The left ventricle is normal sized with no wall motion abnormalities. LV ejection fraction c alculated at 83%. There is no pericardial effusion. Valves: The tricuspid valve leaflets are normal thickness with unrestricted excursion and grossly normal coaptation. The pu lmonic valve leaflets are normal thickness with unrestricted excursion a nd grossly normal coaptation. Flail P2 scallop with ruptured chordae. The mitral annulus is severe ly calcified. The aortic valve is trileaflet without calcification. Avani flets are unrestricted Vessels: There are normal venous connections bet ween the SVC, IVC, and coronary sinus to the right atrium. The main pulmonary artery is normal sized with no central emboli. Four pulmonary veins are seen entering the left atrium that are patent. The aortic root is normal sized and measures 24 x 27 x 28 mm. The ascending aorta measures 28 x 26 mm. Mild atherosclerosis of the left main. Mild atherosclerosis of the proximal LAD. No obstructive atherosc lerosis of the ramus branch. Small caliber circumflex artery that is not well visualized on t he study. Severely calcified ostial RCA precludes assessment. IMAGE QUALITY: Good NON CONTRAST FINDINGS: N/A CONTRAST FINDINGS: N/A Other Comments: N/A CONCLUSION: 1. Flail mitral P2 scallop with ruptu red chordae. 2. Severe mitral annular calcificatio n. 3. Normal LV size with hyperdynamic s ystolic function. LVEF calculated at 83%. 4. Normal RV size and systolic functi on. OVERREAD: Finn Cheatham MD [address] [facility], [address] [place] [address] D: 2021-05-03 15:30:29.0 T: 2021-05-03 15:44:46.0 PROVIDER APPROVAL DATETIME: 2021-04-17 15:44:45.0 Procedure Note Interface, External Ris In - 05/06/2021 8:08 AM CDT NAME: JOYCE GIPSON : [id number] GENDER: F ACCOUNT NUM: [id number] TEST: CTA OF THE HEART GATED TEST DATE: TEST LOCATION: [facility] INPATIENT: Outpatient REFERRING PHYSICIAN: Mike Steve MD REASON FOR TEST: Mitral Valve Disorder INDICATION FOR TEST: N/A No Report Template Found TECHNIQUE: N/A INTERPRETATION: Chambers: The right atrium is grossly normal size. The right ventricle demonstrates grossly normal size and systolic function. Left atrial enlargement. Left atrial appendage is free of thrombus. The left ventricle is normal sized with no wall motion abnormalities. LV ejection fraction calculated at 83%. There is no pericardial effusion. Valves: The tricuspid valve leaflets are normal thickness with unrestricted excursion and grossly normal coaptation. The pulmonic valve leaflets are normal thickness with unrestricted excursion and grossly normal coaptation. Flail P2 scallop with ruptured chordae. The mitral annulus is severely calcified. The aortic valve is trileaflet without calcification. Leaflets are unrestricted Vessels: There are normal venous connections between the SVC, IVC, and coronary sinus to the right atrium. The main pulmonary artery is normal sized with no central emboli. Four pulmonary veins are seen entering the left atrium that are patent. The aortic root is normal sized and measures 24 x 27 x 28 mm. The ascending aorta measures 28 x 26 mm. Mild atherosclerosis of the left main. Mild atherosclerosis of the proximal LAD. No obstructive atherosclerosis of the ramus branch. Small caliber circumflex artery that is not well visualized on the study. Severely calcified ostial RCA precludes assessment. IMAGE QUALITY: Good NON CONTRAST FINDINGS: N/A CONTRAST FINDINGS: N/A Other Comments: N/A CONCLUSION: 1. Flail mitral P2 scallop with rupture d chordae. 2. Severe mitral annular calcification. 3. Normal LV size with hyperdynamic sys tolic function. LVEF calculated at 83%. 4. Normal RV size and systolic function . OVERREAD: Finn Cheatham MD [address] [facility], [address] [place] [address] D: 2021-05-03 15:30:29.0 T: 2021-05-03 15:44:46.0 PROVIDER APPROVAL DATETIME: 2021-05-03 15:44:45.0 Performing Organization Address City/State/ZIP Code P rocky Number [facility] * Echo Transesophageal with Doppler and Color [...] At [facility] Transesophageal Echocardiogram Report Name: JOYCE GIPSON Date: 03/27/2021 08:02 Chart #: [id number] : 1950 Gender F Location: [facility] Sono: tawanna man : Age: 70 Room #: [id number] Referring: LLOYD CARRERA Fellow: Procedure: ECHO TRANSESOPHAGEAL [facility] COLOR FLOW AND DOPPLER Indication:Mitral valve prolapse; Heart palpitations; Mitral valve insufficiency, unspecified etiology; Agatston CAC score 100-199 Procedure: The patient was kept NETWORK INTERN O after midnight. Informed consent was obtained. [...] JOYCE GIPSON Date: 03/27/2021 08:02 Chart #: [id number] : 1950 Gender F Location: [facility] Sono: lgorman : Age: 70 Room #: [id number] Referring: LLOYD CARRERA Fellow: Procedure: ECHO TRANSESOPHAGEAL [...] 27 March 2021 12:58 Performing Organization Address City/[facility]/ZIP Code P rocky Number [facility] * Comprehensive [...] LAB Am Specimen Blood Performing Organization Address City/[facility]/ZIP Code P rocky Number EXTERNAL LAB * Electrocardiogram (ECG) (03/13/2021 2:34 PM CDT) QRSd 92 [facility] QT 372 [facility] QTC 443 [facility] ECGHR 85 [facility] ECGPR 160 [facility]AC[facility]ASTER Specimen Narrative Performed At [facility] Test Date: 2021-03-13 Pat Name: JOYCE [facility] Department: [facility] Room: Gender: Female Lending Manager: [id number] : 1950 Requested By: LLOYD CARRERA Order Number: [id number] Reading MD: Finn Cheatham Measurements Intervals [place] Rate: 85 P: 71 [place]: 160 QRS: 24 QRSD: 92 T: 47 QT: 372 QTc: 443 Interpretive Statements SINUS RHYTHM Electronically Signed On 04-02-2021 15:4 8:26 CDT by Finn Cheatham Procedure Note Interface, External Ris In - 04/02/2021 3:48 PM CDT [facility] Test Date: 2021-03-13 Pat Name: JOYCE [facility] Department: [facility] Room: Gender: Female Lending Manager: [id number] : 1950 Requested By: LLOYD CARRERA Order Number: [id number] Reading MD: Finn Cheatham Measurements Intervals [place] Rate: 85 P: 71 [place]: 160 QRS: 24 QRSD: 92 T: 47 [...] n ormal. IVC: normal. PASP 65 mmHg. ([address] [place], [place]) Narrative Performed At This result has an attachment that is n ot available. 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
--- OUTSIDE RECORDS SUMMARY | 2021-05-12 04:02 | XMS REPORT | Encounter Summary ---
Author Author [facility] Organization 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 Name Role Phone Self, Jean ROUSE PCP Reason for Visit * Auth/Cert Referred By Contact Referred To Contact Status Reason Specialty Diagnoses / Procedures Diagnoses Mitral valve insufficiency, unspecified etiology [I34.0] P rocedures ME CATH PLMT L HRT & ARTS W/NJX & ANGIO IMG S&I CORONARY ANGIOGRAPHY PERCUTANEOUS CORONARY INTERVENTION (PCI) Encounter Details Care Team Description Date [place] [address] [place] [address] [phone] CORONARY ANGIOGRAPHY 05/10/2021 Surgery [facility] [id number] [place] [address] Social History Date Tobacco Use Types Packs/Day Years Used Never Smoker Smokeless Tobacco: Never Used Comments Alcohol Use Standard Drinks/Week 1 drink monthly on average Yes 0 (1 standard drink = 0.6 o z pure alcohol) Sex Assigned at Date Recorded Female 03/31/2021 7:46 PM CDT documented as of this encounter Last Filed Vital Signs Reading Time Taken Comments Vital Sign 137/96 05/10/2021 8:39 AM CDT Blood Pressure 86 05/10/2021 8:39 AM CDT Pulse 36.4 C (97.6 F) 05/10/2021 8:39 AM CDT Temperature 18 05/10/2021 8:39 AM CDT Respiratory Rate 98% 05/10/2021 8:39 AM CDT Oxygen Saturation - - Inhaled Oxygen Concentration 56.2 kg (124 lb) 05/10/2021 8:39 AM CDT Weight 162.6 cm (5' 4") 05/10/2021 8:39 AM CDT Height 21.28 05/10/2021 8:39 AM CDT Body Mass Index documented in this encounter Discharge Summaries * Amanuel Leon III, MD - 05/10/2021 5:10 PM CDT Images from the original note were not included. Interventional Cardiology Discharge Summary Admitting physician: Amanuel Leon III, MD Date of admission: 05/10/2021 PCP: Jean Rincon MD Date of discharge: 05/10/2021 Dear Jean Rincon MD, I had the pleasure of participating in the care and discharge of your patient fr [facility] on 05/10/2021 The patient was seen by Dr. Jame Rodriguez and Dr. 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 Cardiac Studies: Summary: Left Main - 25% ostial LAD -long 30% proximal involving D1 with 50% ostial D1 LCX - minor irregularities Ramus - moderate size and normal RCA - large dominant with 95% eccentric ostial with pressure damping and pers istent after IC NTG LVEDP of 18-20 Recommendations: Valve team follow up Discussed with Dr. Rodriguez and given high grade ostial RCA option of MV repair with CABG will be considered rather than PCI and MV repair per Dr. Sanchez' review . Will boost atorvastatin to 40 mg and then 80 mg if tolerates. PHYSICAL EXAM BP 126/72 | Pulse 80 | Temp 36.9 C (98.5 F) (Oral) | Resp 18 | Ht 1.626 m (5' 4") | Wt 56.2 kg (124 lb) | SpO2 94% | BMI 21.28 kg/m Procedural access site: Right radial artery access site is stable. Radial patency test is normal Principal Problem: Mitral valve regurgitation Discharge Plan: The dismissal plan is as follows: - Guideline directed medical therapy Pt will proceed with MV repair and CABG with Dr. Sanchez, unless after his review of the coronary angio he still favors PCI and MV repair. Due to severe CAD and s uboptimal LDL recently will have pt increase atrovastatin to 40 mg daily and if tolerates to 80 mg daily. Will start ASA 81 mg daily. Pt will continue BB for an ti-ischemic Rx. Will forward this DC summary to Dr. Sanchez for his review and to alert him for review of the coronary angio. Discharge Medications . acetaminophen 500 MG tablet Commonly known as: TYLENOL 500 mg, Oral, Every 6 hours PRN ALIVE WOMEN'S GUMMY VITAMINS ORAL Oral, Daily ascorbic acid (vitamin C) 500 MG tablet Commonly known as: VITAMIN C 250 mg, Oral, Daily aspirin 81 MG EC tablet 81 mg, Oral, Daily Start taking on: May 11, 2021 atorvastatin 80 MG tablet Commonly known as: LIPITOR 80 mg, Oral, Daily calcium phosphate-vitamin D3 250 mg-12.5 mcg (500 unit) Chew 1 tablet, Oral, Daily caRVEDILoL 3.125 MG tablet Commonly known as: COREG 3.125 mg, Oral, 2 times daily with meals ciclopirox 0.77 % cream Commonly known as: LOPROX APPLY CREAM TOPICALLY TWICE DAILY TO TOENAILS FOR 30 DAYS coenzyme Q10 200 mg capsule 200 mg, Oral, Daily furosemide 40 MG tablet Commonly known as: LASIX 40 mg, Oral, Daily ibuprofen 200 MG tablet Commonly known as: ADVIL,MOTRIN take 1 tablet (200MG) by oral route every 6 hours as needed with food potassium chloride 20 mEq/15 mL solution Commonly known as: KAYCIEL 5.0667 mEq, Oral, Daily spironolactone 25 MG tablet Commonly known as: ALDACTONE 12.5 mg, Oral, Daily VITAMIN D3 ORAL Oral, Daily Discharge Coordination Time: Greater than 30 minutes Please feel free to contact us with any questions or concerns. Sincerely, Amanuel Leon III, MD 05/10/2021 5:10 PM documented in this encounter Discharge Instructions * Attachments The following attachments cannot be sent through Care Everywhere.* [facility] Cardiac Catheterization and/or PCI Discharge Instructions (for radial and femoral access) (Monegasque) * [facility] Moderate Sedation Dismissal Instructions (Monegasque) documented in this encounter Medications at Time [...] food 02/14/2017 multivit-min/folic Take by mouth 0 acid/cxs650 (ALIVE daily. WOMEN'S GUMMY VITAMINS ORAL) 04/11/2021 potassium chloride Take 3.8 mL 342 mL 1 (KAYCIEL) 20 mEq/15 mL (5.0667 mEq solution total) by mouth daily. 03/13/2021 spironolactone Take 0.5 45 tablet 3 (ALDACTONE) 25 MG tablet tablets (12.5 mg total) by mouth daily. documented as of this encounter Miscellaneous Notes * Sedation Documentation - Amanuel Leon III, MD - 05/10/2021 10:40 AM CDT [facility] Pre-Sedation Assessment H&P Update Chief complaint/ History of present illness/ Indication for procedure: severe MR d/t flail MV for cor eval Planned Procedure/ Treatment: Cors possible PCI History and Physical Status: New H&P on Chart (within 24 hours of procedure) Barbeau test is class B. R&B of procedure was discussed in full detail and patient consents. Pre-Sedation/Analgesia ASA Status: I - Normal healthy patient Plan for Anesthesia: Level 1 (Minimal - CV Lab) Airway Assessment: mask CSHA Clinical Frailty Scale: Vulnerable - While not dependent on others for jovanni y help, often symptoms limit activities. A common complaint is being "slowed up" , and/or being tired during the day. * CV Lab Pre-Procedure Law Enforcement Officer Note - Shelby Roche RN - 05/03/2021 1:25 PM CDT 05/03 OV with JTS Impression and Plan: 1. Mitral Regurgitation: The patient was seen in our multidisciplinary clinic in conjunction with Dr. Umang Sanchez from cardiothoracic surgery. We personally reviewed the patient's transthoracic echocardiogram, CT, and trans-esophageal ec hocardiogram. We also reviewed the pathophysiology of mitral regurgitation with the patient and her . She has severe degenerative mitral regurgitation d ue to P2 prolapse with a partially flail leaflet with symptoms consistent with N YHA III heart failure and palpitations; therefore, mitral valve repair or replac ement is recommended. The patient's STS predicted risk of mortality related to mitral valve repair/replacement surgery is 1.8%, and she is at moderate surgical risk. We recommend surgical mitral valve repair. The procedure will be complex due to MAC. The benefits and risks of this procedure were discussed, and she wou ld like to proceed. We plan to obtain a coronary angiogram. * CV Lab Pre-Procedure Email Note - Shelby Roche RN - 05/03/2021 11:36 AM CDT From: CV Lab Scheduling <[email or web address]> Sent: Monday, May 03, 2021 11:35 AM To: [email or web address] <[email or web address]> Subject: Joyce Saxena 52 Please prioritize 05/03 OV. Thank you, Shelby Roche RN Clinical CV Lab Tin Tie Machine Operator Automatic phone: [phone] documented in this encounter Plan of Treatment Care Team Description Date Type Specialty 05/20/2021 Lab Lab 05/20/2021 [place] [address] [address] [facility] [address] [place] [address] [phone] 06/10/2021 Office Visit Cardiology documented as of this encounter Procedures Comments Procedure Name Priority Date/Time Associated Diag nosis CARDIAC CATHETERIZATION Routine 05/10/2021 Mitral valve 11:09 AM CDT insufficiency, unspecified etiology CARDIAC CATHETERIZATION Routine 05/10/2021 Mitral valve 11:09 AM CDT insufficiency, unspecified etiology ECG Routine 05/10/2021 9:19 AM CDT documented in this encounter Results * Cardiac catheterization (05/10/2021 11:09 AM [...] [facility]ER Specimen Narrative Performed At [facility] Test Date: 2021-05-10 Pat Name: JOYCE SAXENA Department: TABBY Room: [facility] CV LAB POOL ROOMS Gender: Female Police Manager: [id number] : 1950 Requested By: AMANUEL LEON Order Number: [id number] Reading MD: Measurements Intervals [employer] Rate: 77 P: 63 ME: 176 QRS: 32 QRSD: 92 T: 53 QT: 404 QTc: 458 Interpretive Statements SINUS RHYTHM Procedure Note Interface, External Ris In - 05/10/2021 9:20 AM CDT [facility] Test Date: 2021-05-10 Pat Name: JOYCE SAXENA Department: J Room: [facility] CV LAB POOL ROOMS Gender: Female Police Manager: [id number] : 1950 Requested By: AMANUEL LEON Order Number: [id number] Reading MD: Measurements Intervals [employer] Rate: 77 P: 63 ME: 176 QRS: 32 QRSD: 92 T: 53 QT: 404 QTc: 458 Interpretive Statements SINUS RHYTHM Performing Organization Address City/State/ZIP Code [place] Number TRACEMASTER documented in this encounter Visit Diagnoses Diagnosis Mitral valve insufficiency, unspecified etiology documented in this encounter Admitting Diagnoses Diagnosis Mitral valve regurgitation Mitral valve disorders documented in this encounter Administered Medications Action Date Dose Rate Site Medication Order MAR Action acetaminophen (TYLENOL) suppository 325-650 mg 325-650 mg, Rectal, Every 6 hours PRN, mild pain (pain score 1-3), fever greater than 101.5 F, Starting on Thu05/10/21 at 0809, Pre-Procedure (Cath), Do not exceed 4 GM/DAY of acetaminophen . If 65 or older do not exceed 3 GM/DAY. If chronic alcoholic do not exceed 2 GM/DAY. acetaminophen (TYLENOL) tablet 325-650 mg 325-650 mg, Oral, Every 6 hours PRN, mild pain (pain score 1-3), Starting on Thu05/10/21 at 0809, Pre-Procedure (Cath) 05/10/2021 9:00 AM CDT 81 mg aspirin EC tablet 81 mg Given 81 mg, Oral, Daily, First dose on Thu05/10/21 at 0900, Pre-Procedure (Cath), If ASA naive, give 325 mg x 1, then 81 mg daily. DO NOT CRUSH OR CHEW. diphenhydrAMINE (BENADRYL) capsule 25-5 0 mg 25-50 mg, Oral, Every 4 hours PRN, allergic reaction, Starting on Thu05/10/21 at 1120, For 24 hours, For firs t 24 hours post-procedure. Swallow capsul e whole diphenhydrAMINE (BENADRYL) injection 25-50 mg 25-50 mg, Intravenous, Every 4 hours PRN, allergic reaction, Starting on Thu05/10/21 at 1120, For 24 hours, For firs t 24 hours post-procedure. 05/10/2021 10:48 AM CDT 3,000 Units heparin (porcine) 1,000 unit/mL Given injection As needed, Starting on Thu05/10/21 at 1048, Intra-Procedure (Cath) 05/10/2021 11:05 AM CDT 70 mL iodixanoL (VISIPAQUE) 320 mg iodine/mL Given injection As needed, Starting on Thu05/10/21 at 1105, Intra-Procedure (Cath) 05/10/2021 10:45 AM CDT 2 mL Right Wr ist lidocaine (pf) (XYLOCAINE-MPF) 10 mg/mL Given (1 %) injection As needed, Starting on Thu05/10/21 at 1045, Intra-Procedure (Cath) 05/10/2021 10:43 AM CDT 2 mg midazolam (PF) (VERSED) injection Given As needed, Starting on Thu05/10/21 at 1043, Intra-Procedure (Cath) 05/10/2021 10:59 AM CDT 100 mcg nitroglycerin infusion Given As needed, Starting on Thu05/10/21 at 1059, Intra-Procedure (Cath) ondansetron (ZOFRAN) injection 4 mg 4 mg, Intravenous, Every 6 hours PRN, nausea, vomiting, Starting on Thu05/10/21 at 1120, For 24 hours, For firs t 24 hours post-procedure. ondansetron (ZOFRAN) tablet 4 mg 4 mg, Oral, Every 6 hours PRN, nausea, vomiting, Starting on Thu05/10/21 at 1120, For 24 hours, For first 24 hours post-procedure. potassium bicarb-citric acid (EFFER-K) effervescent tablet 20 mEq 20 mEq, Oral, As indicated, Electrolyte Replacement, Starting on Thu05/10/21 at 0809, Pre-Procedure (Cath), Use only if serum creatinine is less than 2 within the previous 48 hours and urine output is greater than 20 mL/hr. Serum Potassium less than or equal 3 - give 2 0 meq PO every hour for 3 doses. Serum Potassium 3.1 - 3.5 - give 40 meq PO. Repeat potassium level 4 hours after last oral dose. Serum Potassium 3.6 - 3.9 - give 20 meq PO. Repeat potassium level in AM. Serum Potassium greater than 4 No replacement needed. Completely dissolve tablet in 3 to 4 ounces (90-120 mL) of cold juice or water before administering. For fluid restricted patients, a smaller volume may be used to dilute (e.g. 15-30 mL). potassium chloride (KLOR-CON) CR tablet 20 mEq 20 mEq, Oral, As indicated, Electrolyte Replacement, Starting on Thu05/10/21 at 0809, Pre-Procedure (Cath), Use only if serum creatinine is less than 2 within the previous 48 hours and urine output is greater than 20 mL/hr. Serum Potassium less than or equal 3 - give 2 0 meq PO every hour for 3 doses. Serum Potassium 3.1 - 3.5 - give 40 meq PO. Repeat potassium level 4 hours after last oral dose. Serum Potassium 3.6 - 3.9 - give 20 meq PO. Repeat potassium level in AM. Serum Potassium greater than 4 No replacement needed. DO NOT CRUSH OR CHEW. potassium chloride 20 mEq in 100 mL IVP B 20 mEq, Intravenous, Administer over 2 Hours, As needed, potassium replacement , Starting on Thu05/10/21 at 0809, Pre-Procedure (Cath), Use only if Cr < 2 within the previous 48 hrs and UO is > 20 mL/hr. May give IV if unable to take PO. Max rate for CENTRAL LINE administration = 20 mEq/hour Max rate for PERIPHERAL LINE administration = 10 mEq/hour K+ 3.6 - 3.9 - 20 mEq over 2 hrs. Repeat K+ level in AM. K+ 3.1 - 3. 5 - 40 mEq over 4 hrs. Repeat K+ level 2 hrs after infusion complete. K+ < or = 3.0 - 60 mEq over 6 hrs. Repeat K+ level 2 hrs after infusion complete. Potassium chloride should be infused at a rate of 10 mEq/hr through a periphera l line, or at a rate of 20 mEq/hr through a central line. 05/10/2021 8:30 AM CDT 3 mL/kg/hr 169.5 mL/hr sodium chloride 0.9% infusion New Bag 3 mL/kg/hr 56.5 kg (169.5 mL/hr), Intravenous, Continuous, Starting on Thu05/10/21 at 0830, For 1 hour, Pre-Procedure (Cath) 05/10/2021 9:30 AM CDT 1 mL/kg/hr 56.5 mL/hr sodium chloride 0.9% infusion New Bag 1 mL/kg/hr 56.5 kg (56.5 mL/hr), Intravenous, Continuous, Starting on Thu05/10/21 at 0930, For 48 hours, Pre-Procedure (Cath ) 05/10/2021 11:45 AM CDT 150 mL/hr 150 mL/hr sodium chloride 0.9% infusion New Bag 150 mL/hr, Intravenous, Continuous, Starting on Thu05/10/21 at 1145, For 2 hours, PACU & Post-op, Maximum rate = 150 mL/hr 05/10/2021 11:07 AM CDT 2.5 mg Right Ar m verapamiL (ISOPTIN) injection Given As needed, Starting on Thu05/10/21 at 1107, Intra-Procedure (Cath) 2.5 mg Right Arm Given 05/10/2021 10:48 AM CDT documented in this encounter Active and Recently Administered Medications Times are shown in CDT. 05/09/2021 05/10/2021 Medication Order 05/08/2021 0900 (Given - Provider: Aura Shelby RN ) aspirin EC tablet 81 mg 81 mg, Oral, Daily, First dose on Thu05/10/21 at 0900, Pre-Procedure (Cath), If ASA naive, give 325 mg x 1, then 81 mg daily. DO NOT CRUSH OR CHEW. 05/09/2021 05/10/2021 Medication Order 05/08/2021 0830 (New Bag - Provider: Izabella post RN)0930 (Stopped - Provider: Izabella Toney RN) sodium chloride 0.9% infusion () 3 mL/kg/hr 56.5 kg (169.5 mL/hr), Intravenous, Continuous, Starting on Thu05/10/21 at 0830, For 1 hour, Pre-Procedure (Cath) 0930 (New Bag - Provider: Aura Shelby RN)1404 (Stopped - Provider: Aura Shelby RN) sodium chloride 0.9% infusion 1 mL/kg/hr 56.5 kg (56.5 mL/hr), Intravenous, Continuous, Starting on Thu05/10/21 at 0930, For 48 hours, Pre-Procedure (Cath ) 1145 (New Bag - Provider: Aura Shelby RN)1403 (Stopped - Provider: Aura Shelby RN) sodium chloride 0.9% infusion () 150 mL/hr, Intravenous, Continuous, Starting on Thu05/10/21 at 1145, For 2 hours, PACU & Post-op, Maximum rate = 150 mL/hr 05/09/2021 05/10/2021 Medication Order 05/08/2021 acetaminophen (TYLENOL) suppository 325-650 mg(Linked Group 1) 325-650 mg, Rectal, Every 6 hours PRN, mild pain (pain score 1-3), fever greater than 101.5 F, Starting on Thu05/10/21 at 0809, Pre-Procedure (Cath), Do not exceed 4 GM/DAY of acetaminophen . If 65 or older do not exceed 3 GM/DAY. If chronic alcoholic do not exceed 2 GM/DAY. acetaminophen (TYLENOL) tablet 325-650 mg(Linked Group 1) 325-650 mg, Oral, Every 6 hours PRN, mild pain (pain score 1-3), Starting on Thu05/10/21 at 0809, Pre-Procedure (Cath) atropine injection 0.5 mg 0.5 mg, Intravenous, As needed, symptomatic bradycardia, (e.g., hypotensive, diaphoretic, shortness of breath, altered mental status, chest discomfort), Starting on Thu05/10/21 at 1120, For 1 dose, Notify physician if given. diphenhydrAMINE (BENADRYL) capsule 25-5 0 mg(Linked Group 2) 25-50 mg, Oral, Every 4 hours PRN, allergic reaction, Starting on Thu05/10/21 at 1120, For 24 hours, For firs t 24 hours post-procedure. Swallow capsul e whole diphenhydrAMINE (BENADRYL) injection 25-50 mg(Linked Group 2) 25-50 mg, Intravenous, Every 4 hours PRN, allergic reaction, Starting on Thu05/10/21 at 1120, For 24 hours, For firs t 24 hours post-procedure. 1048 (Given - Provider: Torie Robert RN) heparin (porcine) 1,000 unit/mL injection As needed, Starting on Thu05/10/21 at 1048, Intra-Procedure (Cath) 1105 (Given - Provider: Amanuel Leon III, MD) iodixanoL (VISIPAQUE) 320 mg iodine/mL injection As needed, Starting on Thu05/10/21 at 1105, Intra-Procedure (Cath) 1045 (Given - Provider: Amanuel Leon III, MD) lidocaine (pf) (XYLOCAINE-MPF) 10 mg/mL (1 %) injection As needed, Starting on Thu05/10/21 at 1045, Intra-Procedure (Cath) 1043 (Given - Provider: Torie Robert RN) midazolam (PF) (VERSED) injection As needed, Starting on Thu05/10/21 at 1043, Intra-Procedure (Cath) nitroglycerin (NITROSTAT) SL tablet 0.4 mg 0.4 mg, Sublingual, Every 5 min PRN, chest pain, Starting on Thu05/10/21 at 1120, May repeat every 5 minutes for a total of 3 doses. Check BP prior to eac h dose. Discontinue use for SBP less than 90 mmHg. Notify physician if given. D O NOT CRUSH OR CHEW. 1059 (Given - Provider: Amanuel Leon III, MD) nitroglycerin infusion As needed, Starting on Thu05/10/21 at 1059, Intra-Procedure (Cath) ondansetron (ZOFRAN) injection 4 mg(Linked Group 3) 4 mg, Intravenous, Every 6 hours PRN, nausea, vomiting, Starting on Thu05/10/21 at 1120, For 24 hours, For firs t 24 hours post-procedure. ondansetron (ZOFRAN) tablet 4 mg(Linked Group 3) 4 mg, Oral, Every 6 hours PRN, nausea, vomiting, Starting on Thu05/10/21 at 1120, For 24 hours, For first 24 hours post-procedure. potassium bicarb-citric acid (EFFER-K) effervescent tablet 20 mEq(Linked Group 4) 20 mEq, Oral, As indicated, Electrolyte Replacement, Starting on Thu05/10/21 at 0809, Pre-Procedure (Cath), Use only if serum creatinine is less than 2 within the previous 48 hours and urine output is greater than 20 mL/hr. Serum Potassium less than or equal 3 - give 2 0 meq PO every hour for 3 doses. Serum Potassium 3.1 - 3.5 - give 40 meq PO. Repeat potassium level 4 hours after last oral dose. Serum Potassium 3.6 - 3.9 - give 20 meq PO. Repeat potassium level in AM. Serum Potassium greater than 4 No replacement needed. Completely dissolve tablet in 3 to 4 ounces (90-120 mL) of cold juice or water before administering. For fluid restricted patients, a smaller volume may be used to dilute (e.g. 15-30 mL). potassium chloride (KLOR-CON) CR tablet 20 mEq(Linked Group 4) 20 mEq, Oral, As indicated, Electrolyte Replacement, Starting on Thu05/10/21 at 0809, Pre-Procedure (Cath), Use only if serum creatinine is less than 2 within the previous 48 hours and urine output is greater than 20 mL/hr. Serum Potassium less than or equal 3 - give 2 0 meq PO every hour for 3 doses. Serum Potassium 3.1 - 3.5 - give 40 meq PO. Repeat potassium level 4 hours after last oral dose. Serum Potassium 3.6 - 3.9 - give 20 meq PO. Repeat potassium level in AM. Serum Potassium greater than 4 No replacement needed. DO NOT CRUSH OR CHEW. potassium chloride 20 mEq in 100 mL IVPB(Linked Group 4) 20 mEq, Intravenous, Administer over 2 Hours, As needed, potassium replacement , Starting on Thu05/10/21 at 0809, Pre-Procedure (Cath), Use only if Cr < 2 within the previous 48 hrs and UO is > 20 mL/hr. May give IV if unable to take PO. Max rate for CENTRAL LINE administration = 20 mEq/hour Max rate for PERIPHERAL LINE administration = 10 mEq/hour K+ 3.6 - 3.9 - 20 mEq over 2 hrs. Repeat K+ level in AM. K+ 3.1 - 3. 5 - 40 mEq over 4 hrs. Repeat K+ level 2 hrs after infusion complete. K+ < or = 3.0 - 60 mEq over 6 hrs. Repeat K+ level 2 hrs after infusion complete. Potassium chloride should be infused at a rate of 10 mEq/hr through a periphera l line, or at a rate of 20 mEq/hr through a central line. 1048 (Given - Provider: Amanuel Leon III, MD)1107 (Given - Provider: Amanuel Leon III, MD) verapamiL (ISOPTIN) injection As needed, Starting on Thu05/10/21 at 1107, Intra-Procedure (Cath) Order Group 1: acetaminophen (TYLENOL) tablet 325-650 mgJump to med 325-650 mg, Oral, Every 6 hours PRN, mi ld pain (pain score 1-3), Starting on Thu05/10/21 at 0809, Pre-Procedure (Cath) Or acetaminophen (TYLENOL) suppository 325 -650 mgJump to med 325-650 mg, Rectal, Every 6 hours PRN, mild pain (pain score 1-3), fever greater than 101.5 F, Starting on Thu05/10/21 at 0809, Pre-Pr ocedure (Cath)
Do not exceed 4 GM/DAY of acetaminophen. If 65 or older do not exceed 3 GM/DAY. If chronic alcoholic do not exceed 2 GM/DAY.
Group 2: diphenhydrAMINE (BENADRYL) capsule 25-5 0 mgJump to med 25-50 mg, Oral, Every 4 hours PRN, yamilet rgic reaction, Starting on Thu05/10/21 at 1120, For 24 hours
For first 24 hours post-proced ure. Swallow capsule whole
Or diphenhydrAMINE (BENADRYL) injection 25 -50 mgJump to med 25-50 mg, Intravenous, Every 4 hours ME N, allergic reaction, Starting on Thu05/10/21 at 1120, For 24 hours
For first 24 hours post-proced ure.
Group 3: ondansetron (ZOFRAN) tablet 4 mgJump to med 4 mg, Oral, Every 6 hours PRN, nausea, vomiting, Starting on Thu05/10/21 at 1120, For 24 hours
For first 24 hours post-proced ure.
Or ondansetron (ZOFRAN) injection 4 mgJump to med 4 mg, Intravenous, Every 6 hours PRN, n ausea, vomiting, Starting on Thu05/10/21 at 1120, For 24 hours
For first 24 hours post-proced ure.
Group 4: potassium chloride (KLOR-CON) CR tablet 20 mEqJump to med 20 mEq, Oral, As indicated, Electrolyte Replacement, Starting on Thu05/10/21 at 0809, Pre-Procedure (Cath)
Use only if serum creatinine is less than 2 within the previous 48 hours and urine output is greater than 20 mL/hr. Serum Po tassium less than or equal 3 - give 20 meq PO every hour for 3 doses. Serum Potassium 3.1 - 3.5 - give 40 meq PO. Repeat potassium level 4 hours after last oral dose. Serum Potassium 3.6 - 3 .9 - give 20 meq PO. Repeat potassium level in AM. Serum Potassium greater than 4 No replacement needed. DO NOT CRUSH OR CHEW.
Or potassium bicarb-citric acid (EFFER-K) effervescent tablet 20 mEqJump to med 20 mEq, Oral, As indicated, Electrolyte Replacement, Starting on Thu05/10/21 at 0809, Pre-Procedure (Cath)
Use only if serum creatinine is less than 2 within the previous 48 hours and urine output is greater than 20 mL/hr. Serum Po tassium less than or equal 3 - give 20 meq PO every hour for 3 doses. Serum Potassium 3.1 - 3.5 - give 40 meq PO. Repeat potassium level 4 hours after last oral dose. Serum Potassium 3.6 - 3 .9 - give 20 meq PO. Repeat potassium level in AM. Serum Potassium greater than 4 No replacement needed. Completely dissolve tablet in 3 to 4 ounces (90-120 mL) of cold juice or tho er before administering. For fluid restricted patients, a smaller volume may be used to dilute (e .g. 15-30 mL).
Or potassium chloride 20 mEq in 100 mL IVP BJump to med 20 mEq, Intravenous, Administer over 2 Hours, As needed, potassium replacement, Starting on Thu05/10/21 at 0809, Pre-Procedure (Cath)<b r>Use only if Cr < 2 within the previous 48 hrs and UO is > 20 mL/hr. May give IV if unable to take PO. Max rate for CENTRAL LINE administration = 20 mEq/hour Max rate for PERIPHERAL L INE administration = 10 mEq/hour K+ 3.6 - 3.9 - 20 mEq over 2 hrs. Repeat K+ level in AM. K+ 3.1 - 3.5 - 40 mEq over 4 hrs. Repeat K+ level 2 hrs after infusi on complete. K+ < or = 3.0 - 60 mEq over 6 hrs. Repeat K+ level 2 hrs after infusion complete. Potassium chloride should be infused at a rate of 10 mEq/hr through a periph eral line, or at a rate of 20 mEq/hr through a central line.
documented in this encounter
--- OUTSIDE RECORDS SUMMARY | 2021-05-12 04:02 | XMS REPORT | Encounter Summary ---
Author Author [facility] Organization [facility] Address Unknown Phone Unavailable Care Team Providers Care Project Scientist Name Role Phone Self, Jean ROUSE PCP Reason for Visit * Auth/Cert Referred By Contact Referred To Contact Status Reason Specialty Diagnoses / Procedures Diagnoses Mitral valve insufficiency, unspecified etiology [I34.0] P rocedures NH CATH PLMT L HRT & ARTS W/NJX & ANGIO IMG S&I CORONARY ANGIOGRAPHY PERCUTANEOUS CORONARY INTERVENTION (PCI) Encounter Details Care Team Description Date [place] [address] [place] [address] [phone] Mitral valve insufficiency, unspecified etiology 05/10/2021 [facility] [address] [place] [address] Social History Date Tobacco Use Types Packs/Day [...] care and discharge of your patient fr [facility] on 05/10/2021 The patient was seen [...] cannot be sent through Care Everywhere.* [facility] Cardiac Catheterization and/or PCI Discharge Instructions (for radial and femoral access) (South African) * [facility] Moderate Sedation Dismissal Instructions (South African) documented in this encounter Medications at Time [...] food 02/14/2017 multivit-min/folic Take by mouth 0 acid/nfu085 (ALIVE daily. WOMEN'S GUMMY VITAMINS ORAL) 04/11/2021 [...] III, MD - 05/10/2021 10:40 AM CDT [facility] Pre-Sedation Assessment H&P Update Chief complaint/ History [...] during the day. * CV Lab Pre-Procedure Geodetic Surveyor Technologist Note - Shelby Roche RN - 05/03/2021 [...] 11:36 AM CDT From: CV Lab Scheduling <[email or web address]> Sent: Monday, May 03, 2021 11:35 AM To: [email or web address] <[email or web address]> Subject: Joyce Saxena 52 Please prioritize 05/03 OV. Thank you, Shelby Roche RN Clinical CV Lab Biodiesel Engineering Manager phone: [phone] documented in this encounter Plan of Treatment Care Team Description Date Type Specialty 05/20/2021 Lab Lab 05/20/2021 [place] [address] [address] [facility] [address] [place] [address] [phone] 06/10/2021 Office Visit Cardiology documented as of [...] TRACEMASTER Specimen Narrative Performed At TRACEMASTER [facility] Test Date: 2021-05-10 Pat Name: JOYCE SAXENA Department: JudyJudy Room: [facility] CV LAB POOL ROOMS Gender: Female 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: [id number] : 1950 Requested By: AMANUEL LEON Order Number: [id number] Reading MD: Measurements Intervals Sterling Rate: 77 P: 63 NH: 176 QRS: 32 QRSD: 92 T: 53 QT: 404 QTc: 458 Interpretive Statements SINUS RHYTHM Procedure Note Interface, External Ris In - 05/10/2021 9:20 AM CDT [facility] Test Date: 2021-05-10 Pat Name: JYOCE SAXENA Department: JVJ Room: [facility] CV LAB POOL ROOMS Gender: Female 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
--- OUTSIDE RECORDS SUMMARY | 2021-05-12 04:02 | XMS REPORT | Encounter Summary ---
Author Author [facility] Organization [facility] Address Unknown Phone Unavailable Care Team Providers Care Gymnastics Coach Or Instructor Name Role Phone Self, Jean ROUSE PCP Encounter Details Care Team Description Date [place] [address] [place] [address] [phone] 04/15/2021 Documentation [facility] [address] [place] [address] Social History Date Tobacco Use Types Packs/Day [...] 05/20/2021 [place] [address] [place] [address] [phone] 06/10/2021 Office Visit Cardiology documented as of this encounter Visit Diagnoses Not on filedocumented in this encounter
--- OUTSIDE RECORDS SUMMARY | 2021-05-12 04:02 | XMS REPORT | Encounter Summary ---
Author Author [facility] Organization [facility] Address Unknown Phone Unavailable Care Team Providers Care Solar System Designer Name Role Phone Self, Jean ROUSE PCP Encounter Details Care Team Description Date Type Department Gabriela Andrade, REIMBURSEMENT REPRESENTATIVE [address] [facility] [address] [address] [phone] 05/08/2021 Orders Only [facility] [address] [facility] [address] [place] [address] Social History Date Tobacco Use Types Packs/Day [...] 05/20/2021 [place] [address] [facility] [address] [place] [address] [phone] 06/10/2021 Office Visit Cardiology documented as of this encounter Visit Diagnoses Not on filedocumented in this encounter
--- OUTSIDE RECORDS SUMMARY | 2021-05-12 04:02 | XMS REPORT | Clinical Summary ---
Author Author [facility] Organization [facility] Address Unknown Phone Unavailable Care Team Providers Care Modular Set Crew Member Name Role Phone Self, Jean ROUSE PCP Source Comments Some departments are not documenting in the electronic medical record. If you d o not see the information that you expected, contact Release of Information in [facility] [employer] Information Management department at [phone] for further assistan ce in locating additional records.[facility] Allergies Comments Active Allergy Reactions Severity [...] with food Active multivit-min/folic Take by 0 acid/xiw821 (ALIVE mouth daily. 7 WOMEN'S GUMMY VITAMINS [...] nipple discharge. Ms. Gipson had imaging at [facility] which showed no evidence of suspicious mass [...] Mammogram: -- Right diagnostic mammogram 02/23/[address] ( [address]) revealed scattered fibroglandular density. Multiple views of [...] Ultrasound: -- Targeted right breast ultrasound 02/14 ([address]) revealed no solid or cystic abnormality. Mild [...] drink = 0.6 o z pure alcohol) Alcohol Habits Answer Date Recorded How often do you have a drink containing alcohol? No t asked How many drinks containing alcohol do you have on No t asked a typical day when you are drinking? How often do you have six or more drinks on one Not asked occasion? Comment: 1/monthly 03/18/2018 Sex Assigned at Date Recorded Female 07/15/2020 1:51 PM GROUP SEGMENT CONSULTANT Last Filed Vital Signs Reading Time Taken Comments Vital Sign 123/75 07/16/2020 1:16 PM GROUP SEGMENT CONSULTANT Blood Pressure 74 07/16/2020 1:16 PM GROUP SEGMENT CONSULTANT Pulse 36.9 C (98.4 F) 07/16/2020 1:16 PM GROUP SEGMENT CONSULTANT Temperature 16 07/16/2020 1:16 PM GROUP SEGMENT CONSULTANT Respiratory Rate 98% 07/16/2020 1:16 PM GROUP SEGMENT CONSULTANT Oxygen Saturation - - Inhaled Oxygen Concentration 56.7 kg (125 lb) 09/04/2020 11:55 AM GROUP SEGMENT CONSULTANT Weight 162.6 cm (5' 4") 09/04/2020 11:55 AM GROUP SEGMENT CONSULTANT Height 21.46 09/04/2020 11:55 AM GROUP SEGMENT CONSULTANT Body Mass Index Plan of Treatment Health [...] L ot Implanted Type Area Manufactur er [id number] 04/25/2023 [id number]-[id number] / NA / [id number] Marker Breast Biopsy Hydromark Breast DEVICO R Titanium 15g - Sna MEDICAL Implanted: Qty: 1 on 09/11/2020 by [employer]ODU[employer] Rica Bennett MD at [employer] Results Not on filefrom Last 3 Months Insurance Type Payer Benefit Subscriber ID Effective Phone Address Plan / Dates Group Medicare MEDICARE MEDICARE [id number] 2016-P PART A AND resent B Indemnity GENERIC COMMERCIAL GENERIC [id number] 2016-P COMMERCIAL resent [phone] Advance Directives Patient Basket Operator Explanation Type Date Recorded Advance Directive/DPOA
--- OUTSIDE RECORDS SUMMARY | 2021-05-12 04:02 | XMS REPORT | Encounter Summary ---
Author Author [facility] Organization [facility] Address Unknown Phone Unavailable Care Team Providers Care Levelman Name Role Phone Self, Jean ROUSE PCP Encounter Details Care Team Description Date Type Department Jame Rodriguez MD [address] [facility] [address] [place] [address] [phone] Mitral valve insufficiency, unspecified etiology 05/08/2021 [facility] [address] [place] [address] Social History Date Tobacco Use Types Packs/Day [...] food 02/14/2017 multivit-min/folic Take by mouth 0 acid/wtk058 (ALIVE daily. WOMEN'S GUMMY VITAMINS ORAL) 04/11/2021 [...] each nostril documented as of this encounter Plan of Treatment Care Team Description Date Type Specialty 05/20/2021 Lab Lab 05/20/2021 Lab [place] [address] [address] [phone] 06/10/2021 Office Visit Cardiology documented as of this encounter Procedures Comments Procedure Name Priority Date/Time Associated Diag nosis SARS-COV-2, LETY Routine 05/08/2021 Mitral valve (COVID-19) 9:41 PM CDT insufficiency, unspecified etiology documented in this encounter Results * SARS-COV-2, LETY (COVID-19) (05/08/2021 9:41 PM CDT) SARS-CoV-2 PCR NegativeComment: This RT-PCR Negative S [facility] test has been authorized by Hospital Lab the FDA under an Emergency Use Authorization (EUA) for use by authorized laboratories. Performed on the Vestiage Aptima SARS-CoV-2 assay, which utilizes Prepress Proofer Mediated Amplification (TMA) technology Specimen NASOPHARYNGEAL SWAB Performing Organization Address City/State/ZIP Code P rocky Number [address] [address] LABORATORIES [facility] [address] [place] [address] documented in this encounter Visit Diagnoses Diagnosis Mitral valve insufficiency, unspecified etiology documented in this encounter
--- OUTSIDE RECORDS SUMMARY | 2021-05-12 04:02 | XMS REPORT | Encounter Summary ---
Author Author [facility] Organization [facility] Address Unknown Phone Unavailable Care Team Providers Care Coin Collector Name Role Phone Self, Jean ROUSE PCP Encounter Details Care Team Description Date Type Department Sera Jim RN 05/02/2021 Abstract [facility] [address] [facility] [address] [place] [address] Social History Date Tobacco Use Types Packs/Day [...] 05/20/2021 [place] [address] [facility] [address] [place] [address] [phone] 06/10/2021 Office Visit Cardiology documented as of this encounter Visit Diagnoses Not on filedocumented in this encounter
--- OUTSIDE RECORDS SUMMARY | 2021-05-12 04:02 | XMS REPORT | Encounter Summary ---
Author Author [facility] Organization [facility] Address Unknown Phone Unavailable Care Team Providers Care Private Investigator Name Role Phone Self, Jean ROUSE PCP Reason for Referral * MRI/CAT/PET Scan (Routine) Referred By Contact Referred To Contact Status Reason Specialty Diagnoses / Procedures Mike Steve MD [address] [place] [address] [facility] [address] [place] [address] Closed Cardiology Diagnoses Mitral valve insufficiency, unspecified etiology Mitral annular calcification Preop cardiovascular exam Pre-procedure lab exam P rocedures CV CT Heart gated study Electronically signed by Mike Steve MD at Reason for Visit * MRI/CAT/PET Scan (Routine) Referred By Contact Referred To Contact Status Reason Specialty Diagnoses / Procedures Mike Steve MD [address] [place] [address] [facility] [address] [place] [address] Closed Cardiology Diagnoses Mitral valve insufficiency, unspecified etiology Mitral annular calcification Preop cardiovascular exam Pre-procedure lab exam P rocedures CV CT Heart gated study Encounter Details Care Team Description Date Type Department Mike Steve MD [address] [place] [address] [phone] Mitral valve insufficiency, unspecified etiology; Mitral annular calcification; Preop cardiovascular exam; Pre-procedure lab exam [facility]03[facility] [address] [place] [address] Social History Date Tobacco Use Types Packs/Day [...] food 02/14/2017 multivit-min/folic Take by mouth 0 acid/gyr573 (ALIVE daily. WOMEN'S GUMMY VITAMINS ORAL) 04/11/2021 [...] 05/20/2021 [place] [address] [address] [facility] [address] [place] [address] [phone] 06/10/2021 Office Visit Cardiology documented as of this encounter Procedures Comments Procedure Name Priority Date/Time Associated Diag nosis CV CT HEART Routine 05/03/2021 Mitral valve 9:16 AM CDT insufficiency, unspecified etiology Mitral annular calcification Preop cardiovascular exam Pre-procedure lab exam documented in this encounter Results * CV CT Heart gated study (05/03/2021 9:16 AM CDT) Specimen Narrative Performed At [facility] NAME: BYRON SAXENA : [id number] GENDER: F ACCOUNT NUM: [id number] TEST: CTA OF THE HEART GATED TEST DATE: TEST LOCATION: [facility] INPATIENT: Outpatient REFERRING PHYSICIAN: Mike tyler MD [...] systolic functi on. OVERREAD: Finn Cheatham MD [address] [facility], [address] [place] [address] D: 2021-05-03 15:30:29.0 T: 2021-05-03 15:44:46.0 PROVIDER APPROVAL DATETIME: 2021-04-17 7 15:44:45.0 Procedure Note Interface, External Ris In - 05/06/2021 8:08 AM CDT NAME: BYRON SAXENA : [id number] GENDER: F ACCOUNT NUM: [id number] TEST: CTA OF THE HEART GATED TEST DATE: TEST LOCATION: [facility] INPATIENT: Outpatient REFERRING PHYSICIAN: Mike Steve MD [...] systolic function . OVERREAD: Finn Cheatham MD [address] [facility], [address] [place] [address] D: 2021-05-03 15:30:29.0 T: 2021-05-03 15:44:46.0 PROVIDER APPROVAL DATETIME: 2021-05-03 15:44:45.0 Performing Organization Address City/State/ZIP Code P rocky Number [facility] documented in this encounter Visit Diagnoses Diagnosis Mitral valve insufficiency, unspecified etiology Mitral annular calcification Mitral valve disorders Preop cardiovascular exam Pre-operative cardiovascular examinatio n Pre-procedure lab exam Pre-procedural laboratory examination documented in this encounter Administered Medications Action Date Dose Rate Site Medication Order MAR Action 05/03/2021 9:13 AM CDT 75 mL iohexoL (OMNIPAQUE) 350 mg iodine/mL Given injection 75 mL 75 mL, Intravenous, Once in imaging, contrast, Starting on Thu05/03/21 at 0851, For 1 dose documented in this encounter
--- OUTSIDE RECORDS SUMMARY | 2021-05-12 04:02 | XMS REPORT | Encounter Summary ---
Author Author [facility] Organization [facility] Address Unknown Phone Unavailable Care Team Providers Care Partner Alliance Manager Name Role Phone Self, Jean ROUSE PCP Encounter Details Care Team Description Date Type Department Jame Sanchez MD [address] [facility] [address] [place] [address] [phone] Encounter for screening laboratory testi ng for COVID-19 virus (Primary Dx) 05/09/2021 Orders Only [facility] [address] [facility] [address] [place] [address] Social History Date Tobacco Use Types Packs/Day [...] 05/20/2021 [place] [address] [facility] [address] [place] [address] [phone] 06/10/2021 Office Visit Cardiology Order Schedule Name Type Priority Associated Diag noses 1 Occurrences starting 05/09/2021 until 05/09/2022 COVID-19 Preprocedure PCR Lab Routine Enco unter for screening (non-PUI) laboratory testing for COVID-19 virus documented as of this encounter Visit Diagnoses Diagnosis Encounter for screening laboratory test ing for COVID-19 virus - Primary documented in this encounter
--- OUTSIDE RECORDS SUMMARY | 2021-05-12 04:02 | XMS REPORT | Encounter Summary ---
Author Author [facility] Organization [facility] Address Unknown Phone Unavailable Care Team Providers Care Office Lead Name Role Phone Self, Jean ROUSE PCP Reason for Visit * Reason Comments Pre-procedure Covid Testing Encounter Details Care Team Description Date Type Department Encounter for preoperative s creening laboratory testing for COVID-19 virus (Primary Dx) 05/08/2021 Lab [facility] [address] [place] [address] Social History Date Tobacco Use Types Packs/Day Years Used Never Smoker Smokeless Tobacco: Never Used Comments Alcohol Use Standard Drinks/Week 1 drink monthly on average Yes 0 (1 standard drink = 0.6 o z pure alcohol) Sex Assigned at Date Recorded Female 03/31/2021 7:46 PM CDT documented as of this encounter Progress Notes * Lissette Maguire NP - 05/08/2021 6:20 PM CDT Joyce was seen today for pre-procedure covid testing. Diagnoses and all orders for this visit: Encounter for preoperative screening laboratory testing for COVID-19 virus COVID test collected. documented in this encounter Plan of Treatment Care Team Description Date Type Specialty 05/20/2021 Lab Lab 05/20/2021 Lab [place] [address] [address] [place] [address] [phone] 06/10/2021 Office Visit Cardiology documented as of this encounter Visit Diagnoses Diagnosis Encounter for preoperative screening la boratory testing for COVID-19 virus - Primary documented in this encounter
--- OUTSIDE RECORDS SUMMARY | 2021-05-12 04:02 | XMS REPORT | Encounter Summary ---
Author Author [facility] Organization [facility] Address Unknown Phone Unavailable Care Team Providers Care Medicare Interviewer Name Role Phone Self, Jean ROUSE PCP Encounter Details Care Team Description Date Type Department Elsa Sanchez MD [address] [facility] [address] [place] [address] [phone] Mitral valve stenosis, unspecified etiol ogy (Primary Dx) 05/03/2021 [facility] [address] [address] Social History Date Tobacco Use Types Packs/Day [...] 05/20/2021 [place] [address] [facility] [address] [place] [address] [phone] 06/10/2021 Office Visit Cardiology documented as of this encounter Results * XR Chest 2 views (PA and lateral) (05/03/2021 1:23 PM CDT) Specimen Impressions Performed At Spiculated right apical nodular opacity may be artifa ctual [facility] or due to pulmonary nodule. Consider fu rther characterization with contrast enhanced chest CT.. READING SITE: [facility] Narrative Performed At Patient: BYRON SAXENA Sex#: F #: [id number] Derrek#: [id number] Location: [facility] XRAY [address] Ordering Provider: ELSA SANCHEZ Procedure Requested: [id number] XR CHEST 2 VIEWS (PA AND LATERAL) [...] In - 05/07/2021 1:05 PM CDT Patient: BYRON SAXENA Sex#: F #: 1950 Derrek#: [id number] Location: [facility] XRAY Ordering Provider: ELSA SANCHEZ Procedure Requested: [id number] XR CHEST 2 VIEWS (PA AND LATERAL) [...] with contrast enhanced chest CT.. READING SITE: [facility] Address City/State/ZIP Code P rocky Number [email or web address] documented in this encounter Visit Diagnoses Diagnosis Mitral valve stenosis, unspecified etio logy - Primary documented in this encounter
--- OUTSIDE RECORDS SUMMARY | 2021-05-12 04:02 | XMS REPORT | Encounter Summary ---
Author Author [facility] Organization [facility] Address Unknown Phone Unavailable Care Team Providers Care Shingle Catcher Name Role Phone Self, Jean ROUSE PCP Encounter Details Care Team Description Date Type Department Elsa Sanchez MD [address] [facility] [address] [address] [phone] Mitral valve stenosis, unspecified etiol ogy 05/03/2021 [facility], [address] [address] Social History Date Tobacco Use Types Packs/Day [...] 05/20/2021 [place] [address] [facility] [address] [place] [address] [phone] 06/10/2021 Office Visit Cardiology documented as of this encounter Procedures Comments Procedure Name Priority Date/Time Associated Diag nosis XR CHEST 2 VIEWS (PA AND Routine 05/03/2021 [place] valve stenosis, LATERAL) 1:23 PM CDT unspecified etiolog y documented in this encounter Results * XR Chest 2 views (PA and lateral) (05/03/2021 1:23 PM CDT) Specimen Impressions Performed At Spiculated right apical nodular opacity may be artifa ctual CAREN or due to pulmonary nodule. Consider fu rther characterization with contrast enhanced chest CT.. READING SITE: [facility] Narrative Performed At Patient: BYRON SAXENA Sex#: F #: 1950 Derrek#: [id number] Location: [facility] XRAY [address] Ordering Provider: ELSA SANCHEZ Procedure Requested: [id number] XR CHEST 2 VIEWS (PA AND LATERAL) [...] BYRON SAXENA Sex#: F #: 1950 Derrek#: [id number] Location: [facility] XRAY Ordering Provider: ELSA SANCHEZ Procedure Requested: [id number] XR CHEST 2 VIEWS (PA AND LATERAL) [...] with contrast enhanced chest CT.. READING SITE: [facility] Performing Organization Address City/State/ZIP Code P rocky Number [email or web address] documented in this encounter Visit Diagnoses Diagnosis Mitral valve stenosis, unspecified etio logy documented in this encounter
--- OUTSIDE RECORDS SUMMARY | 2021-05-12 04:02 | XMS REPORT | Encounter Summary ---
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 Name Role Phone Self, Jean ROUSE PCP Reason for Referral * Consultation (Urgent) Referred By Contact Referred To Contact Status Reason Specialty Diagnoses / [place] [address] [place] [address] [facility] [address] [address] Closed Valve and Diagnoses Vascular Agatston CAC score 100-199 Heart palpitations Mitral valve prolapse Nonrheumatic mitral valve regurgitation Electronically signed by Lloyd Broderick MD at Reason for Visit * Reason Comments Valvular disease * Consultation (Urgent) Referred By Contact Referred To Contact Status Reason Specialty Diagnoses / [place] [address] [place] [address] [facility] Valve And Vasc Cl [address] [facility] [address] [place] [address] Closed Valve and Diagnoses Vascular Agatston CAC score 100-199 Heart palpitations Mitral valve prolapse Nonrheumatic mitral valve regurgitation Encounter Details Care Team Description Date [place] [address] [place] [address] [phone] Jame Sanchez MD [address] [place] [address] [phone] Agatston CAC score 100-199; Heart palpitations; Mitral valve prolapse; Nonrheumatic mitral valve regurgitation 05/03/2021 [facility] al Encounter Valve & Vascular Clinic [address], [address] [place] [address] Social History Date Tobacco Use Types Packs/Day Years Used Never Smoker Smokeless Tobacco: Never Used Comments Alcohol Use Standard Drinks/Week 1 drink monthly on average Yes 0 (1 standard drink = 0.6 o z pure alcohol) Sex Assigned at Date Recorded Female 03/31/2021 7:46 PM CDT documented as of this encounter Last Filed Vital Signs Reading Time Taken Comments Vital Sign 140/78 05/03/2021 10:18 AM CDT Blood Pressure 108 05/03/2021 10:18 AM CDT Pulse 36.6 C (97.9 F) 05/03/2021 10:18 AM CDT Temperature 20 05/03/2021 10:18 AM CDT Respiratory Rate 93% 05/03/2021 10:18 AM CDT Oxygen Saturation - - Inhaled Oxygen Concentration 56.5 kg (124 lb 9.6 oz) 05/03/2021 10:18 AM CDT Weight 162.6 cm (5' 4") 05/03/2021 10:18 AM CDT Height 21.39 05/03/2021 10:18 AM CDT Body Mass Index documented in [...] food 02/14/2017 multivit-min/folic Take by mouth 0 acid/bxv195 (ALIVE daily. WOMEN'S GUMMY VITAMINS ORAL) 04/11/2021 [...] of this encounter Progress Notes * Jame Sanchez MD - 05/03/2021 10:45 AM CDT [facility] Appointment Date: 05/03/2021 Jean Rincon MD [address] [place] [phone] RE: Joyce Gipson : 1950 Visit provider: Jame Sanchez MD Dear Jean Rincon MD, I had the pleasure of seeing Joyce Gipson in the office today. She is a(n) 70 y .o. female and presents with the following chief complaint(s): Valvular disease HPI: Ms. Gipson is a 70y/o F seen today in our multidisciplinary valve clinic as ref erred by Dr. Lloyd Broderick for evaluation of mitral valve regurgitation. Other PMH significant for HLD, pulmonary HTN, CAD, and Raynaud's disease. She has been followed by [facility] for known mitral valve prolapse with regurgitation . ECHO 03/27 with EF 65%, normal RV size and systolic function, mitral valve prol apse with partially flail posterior leaflet (P2 segment) and severe eccentric an terior directed jet of mitral regurgitation, elevated PAP 52mmHg, and posterior mitral annular calcification. She had been referred for evaluation by Dr. Sanchez however due to the degree of MAC, felt that her chances of undergoing successful repair were not ideal and to be evaluated in valve clinic. She has not had a re cent cardiac cath. Today she is accompanied by her for further evaluation. She reports symp toms began 7-8 weeks ago when she awoke with sudden onset shortness of breath. S he has experienced progressively worsening dyspnea on exertion, fatigue, and anabel ght gain. She is tachycardic today with HR 108 though is regular with no reporte d history of afib. Denies chest pain/pressure, lower extremity edema. She is vac cinated for Gangkr. She is typically quite active though has decreased her level of activity due to her concerns regarding her valve. She and her often w alk 3 miles at a time and she participates in yoga. STS Risk Score Isolated MV Repair: 0.594% MV Repair + CAB.518% Isolated MVR: 1.837% MVR + CAB.464% Patient Active Problem List Diagnosis SNOMED CT(R) Heart palpitations PALPITATIONS Mitral valve prolapse MITRAL VALVE PROLAPSE Mixed hyperlipidemia MIXED HYPERLIPIDEMIA Agatston CAC score 100-199 CALCIFICATION OF CORONARY ARTERY Abnormal screening CT of chest CT OF CHEST ABNORMAL Raynaud's disease RAYNAUD'S DISEASE Primary osteoarthritis of right knee OSTEOARTHRITIS OF RIGHT KNEE JOINT Coronary artery calcification of [place] artery CALCIFICATION OF CORONARY ART AIDE Mitral valve regurgitation MITRAL VALVE REGURGITATION Pulmonary HTN (HCC) PULMONARY HYPERTENSION Past Medical History: Diagnosis Date Acute cystitis without hematuria 12/2017 Agatston CAC score 100-199 09/24/2017 Total Agatston Score: 165 (CT: Luis Benites [place]) Agatston CAC score, <100 06/11/2012 Total Agatston Score: 61.2 Coronary artery calcification of [place] artery Heart palpitations Mitral valve prolapse Mitral valve regurgitation Mixed hyperlipidemia Primary osteoarthritis of right knee Pulmonary HTN (HCC) Raynaud's disease Rectocele Shortness of breath Past Surgical History: Procedure Laterality Date ARTHROSCOPY, KNEE Right 2000 BREAST BIOPSY benign TUBAL LIGATION 1985 Final [...] as needed with food 90 0 multivit-min/folic acid/qyo407 (ALIVE WOMEN'S GUMMY VITAMINS ORAL) Take by [...] Systems Constitutional: Positive for malaise/fatigue. Negative for chills and fever. HENT: Negative. Negative for congestion and hearing loss. Eyes: Negative. Negative for vision loss in left eye and vision loss in right e ye. Cardiovascular: Positive for dyspnea on exertion. Negative for chest pain and pa lpitations. Respiratory: Positive for cough and shortness of breath. Endocrine: Positive for cold intolerance (Raynauds). Negative for heat intoleran ce. Hematologic/Lymphatic: Negative. Negative for bleeding problem. Does not bruise /bleed easily. Skin: Negative. Negative for poor wound healing and rash. Musculoskeletal: Positive for joint pain. Negative for arthritis and back pain. Gastrointestinal: Negative. Negative for nausea and vomiting. Genitourinary: Positive for bladder incontinence (with cough/sneeze). Negative f or hematuria. Neurological: Negative. Negative for dizziness and light-headedness. Psychiatric/Behavioral: Negative for depression. The patient is nervous/anxious. Allergic/Immunologic: Negative. Negative for HIV exposure and persistent infect ions. Vitals 05/03/2021 BP 140/78 Pulse 108 Resp 20 Height 5' 4" Weight 124 lb 9.6 oz SpO2 93 Some recent data might be hidden BMI: Body mass index is 21.39 kg/m. Physical Exam Vitals reviewed. Exam conducted with a senior safety management consultant present (). Constitutional: Appearance: Normal appearance. She is normal weight. HENT: Head: Normocephalic and atraumatic. Eyes: Extraocular Movements: Extraocular movements intact. Pupils: Pupils are equal, round, and reactive to light. Cardiovascular: Rate and Rhythm: Normal rate and regular rhythm. Pulses: Normal pulses. Radial pulses are 2+ on the right side and 2+ on the left side. Femoral pulses are 2+ on the right side and 2+ on the left side. Heart sounds: Murmur heard. Systolic murmur is present with a grade of 3/6. Pulmonary: Effort: Pulmonary effort is normal. No respiratory distress. Breath sounds: Normal breath sounds. No wheezing. Abdominal: General: Abdomen is flat. Bowel sounds are normal. There is no distension. Palpations: Abdomen is soft. Tenderness: There is no abdominal tenderness. Musculoskeletal: General: No swelling or tenderness. Normal range of motion. Cervical back: Normal range of motion and neck supple. Skin: General: Skin is warm and dry. Neurological: General: No focal deficit present. Mental Status: She is alert and oriented to person, place, and time. Mental s tatus is at baseline. Psychiatric: Mood and Affect: Mood normal. Behavior: Behavior normal. Thought Content: Thought content normal. Judgment: Judgment normal. Cholesterol Date Value 02/14/2020 210 mg/dL [...] Final 12/20/2018 12:00 AM 129 mg/dL Final EKG: Normal Sinus Rhythm at 92 bpm (03/13/2021) Encounter Diagnoses Name Primary? Agatston CAC score 100-199 Heart palpitations Mitral valve prolapse Nonrheumatic mitral valve regurgitation Impression and Plan: I have seen Joyce Gipson in the multidisciplinary valve clinic in conjunction with Dr. Jame Rodriguez. I have reviewed her echo, CANDELARIA, and CVCT. She has severe mi tral regurgitation secondary to a flail P2. She also has severe MAC. She is a re asonable candidate for mitral repair using elizabeth-chords. If this is not successful , she will need a replacement. A replacement would be significantly more risk an d I explained this to her. She will need to have a cath prior to the procedure. I hereby certify that I have explained the nature, purpose, benefits, complicati ons from, risks of, alternatives (including , stroke, respiratory failure, and organ failure), likelihood of achieving goals of care and potential problems that might occur during recuperation, to the proposed procedure/operation, have offered to answer any questions and have fully answered all such questions. I b elieve that the patient/agent/relative/guardian fully understands what I have ex plained and answered. Electronically signed by Jame Sanchez, 05/03/2021, 12:28 PM . Treatment goals, progress and next steps, as above, were discussed and mutually agreed upon with the patient/family. Thank you for allowing me to participate in Joyce Gipson's care. If I can be o f any further assistance, please do not hesitate to contact me. Sincerely, Jame Sanchez MD documented in this encounter Plan of Treatment Care Team Description Date Type Specialty 05/20/2021 Lab Lab 05/20/2021 Lab [place] [address] [facility] [address] [place] [address] [phone] 06/10/2021 Office Visit Cardiology Order Schedule Name Type Priority Associated Diag noses As Needed for 1 Occurrences starting until 05/03/2021 Ambulatory Referral to Outpatient Routine Agatsto n CAC score Structural Heart Clinic Referral 100-199 Heart palpitations Mitral valve prolapse Nonrheumatic mitral valve regurgitation documented as of this encounter Visit Diagnoses Diagnosis Agatston CAC score 100-199 Heart palpitations Palpitations Mitral valve prolapse Mitral valve disorders Nonrheumatic mitral valve regurgitation documented in this encounter
--- OUTSIDE RECORDS SUMMARY | 2021-05-12 04:03 | XMS REPORT | Encounter Summary ---
Author Author [facility] Organization [facility] Address Unknown Phone Unavailable Care Team Providers Care Jack Tamp Operator Name Role Phone Jean Rincon MD PCP Encounter Details Care Team Description Date Type Department Alon Ba MD [address] [place] [address] [phone] Meet Sandoval MD [address] [facility] [place] [address] [phone] 03/27/2021 Anesthesia [facility] Event [address] [place], [place] [id number] Anesthesia Record Responsible Anesthesiologist Anesthesia Start Time [...] Procedure Summary Date: 03/27/21 Room / Location: [facility] Anesthesia Start: 806 Anesthesia Stop: 841 [...] 05/20/2021 Lab [place] [address] [facility] [address] [place] [address] [phone] 06/10/2021 Office Visit Cardiology documented as of [...]
--- OUTSIDE RECORDS SUMMARY | 2021-05-12 04:03 | XMS REPORT | Encounter Summary ---
Author Author [facility] Organization [facility] Address Unknown Phone Unavailable Care Team Providers Care Lip Cutter Name Role Phone Self, Jean ROUSE PCP Reason for Referral * Diagnostic Imaging (Routine) Referred By Contact Referred To Contact Status Reason Specialty Diagnoses / [place] [address] [place] [address] [facility] [address] [place] [address] Closed Cardiology Diagnoses Mitral valve prolapse Heart palpitations Agatston CAC score 100-199 Mitral valve insufficiency, unspecified etiology P rocedures Echo Transesophageal with Doppler and Color Flow Electronically signed by Lloyd Broderick MD at Reason for Visit * Diagnostic Imaging (Routine) Referred By Contact Referred To Contact Status Reason Specialty Diagnoses / [place] [address] [place] [address] [facility] [address] [place] [address] Closed Cardiology Diagnoses Mitral valve prolapse Heart palpitations Agatston CAC score 100-199 Mitral valve insufficiency, unspecified etiology P rocedures Echo Transesophageal with Doppler and Color Flow Encounter Details Care Team Description Date [place] [address] [place] [address] [phone] Mitral valve prolapse; Heart palpitations; Agatston CAC score 100-199; Mitral valve insufficiency, unspecified etiology 03/27/2021 [facility] [address] [place] [address] Social History Date Tobacco Use Types Packs/Day [...] who you are. Call your physician at [phone] with any questions or problems or call 911 f or emergent needs. Call 911 if the patient is having difficulty breathing, is turning blue or is un able to awaken. documented in this encounter Medications at Time of Discharge Start Date End Date Medication Sig Dispensed Refills ascorbic acid (VITAMIN C) Take 250 mg 0 500 mg tablet by mouth daily. 10/25/2017 calcium phosphate-vitamin Chew 1 tablet 0 D3 250 mg calcium- 500 daily. unit Chew 10/25/2017 cholecalciferol, vitamin Take by mouth 0 D3, (VITAMIN D3 ORAL) daily. 02/12/2021 ciclopirox (LOPROX) 0.77 APPLY CREAM 0 % cream TOPICALLY TWICE DAILY TO TOENAILS FOR 30 DAYS 01/15/2017 coenzyme Q10 200 mg Take 200 mg 0 capsule by mouth daily. 08/11/2012 ibuprofen (ADVIL,MOTRIN) take 1 tablet 90 0 200 MG tablet (200MG) by oral route every 6 hours as needed with food 02/14/2017 multivit-min/folic Take by mouth 0 acid/hal874 (ALIVE daily. WOMEN'S GUMMY VITAMINS ORAL) 03/13/2021 [...] intranasal route every day in each nostril 03/13/2021 04/03/2021 furosemide (LASIX) 40 MG Take 1 tablet 30 tablet 11 tablet (40 mg total) by mouth daily. 03/13/2021 04/11/2021 potassium chloride Take 3.8 mL 3.8 mL 1 (KAYCIEL) 20 mEq/15 mL (5.0667 mEq solution total) by mouth daily. documented as of this encounter H&P Notes * Kate Chance MD - 03/27/2021 8:00 AM CDT [facility] History and Physical Date:03/27/2021 [...] 95% Appointment Date: 03/13/2021 Jean Rincon MD [address] [place] [phone] RE: Joyce Saxena : 1950 Visit provider: [...] and presented to the emergency room in [facility] and was sent to [facility] in [place] as there were no beds [facility] in the [facility] system where she had requested to come. There, she wa s treated for congestive heart failure with IV Lasix and underwent an echocardio gram outlined below that demonstrated gzqmoeff-er-nxnaqn mitral regurgitation bu t also noted moderate [...] She had a negative COVID test at [facility] and had been vaccinated in the past. [...] RIGHT KNEE JOINT Coronary artery calcification of [place] artery CALCIFICATION OF CORONARY ART AIDE Mitral valve regurgitation MITRAL VALVE REGURGITATION Tricuspid valve regurgitation TRICUSPID VALVE REGURGITATION Pulmonary HTN (HCC) PULMONARY HYPERTENSION Past Medical History: Diagnosis Date Acute cystitis without hematuria 12/2017 Agatston CAC score 100-199 09/24/2017 Total Agatston Score: 165 (CT: Luis Benites, OLIVIER) Agatston CAC score, <100 06/11/2012 Total Agatston Score: 61.2 Coronary artery calcification of [place] artery Heart palpitations Mitral valve prolapse Mitral [...] as needed with food 90 0 multivit-min/folic acid/pgq329 (ALIVE WOMEN'S GUMMY VITAMINS ORAL) Take by [...] nursing note reviewed. Exam conducted with a industrial accountant present. Constitutional: Appearance: She is well-developed. HENT: [...] root: normal. IVC: normal. PASP 65 mmHg. ([address] [place], [place]) Encounter Diagnoses Name Primary? Mitral valve prolapse Yes Heart palpitations Agatston CAC score 100-199 Mitral valve insufficiency, unspecified etiology Impression and Plan: 1. History of mitral valve prolapse with mild mitral regurgitation and then mod erate mitral regurgitation by an echocardiogram done in April 2020, now with pltufrxs-rl-rsxiro mitral regurgitation but complicated by an episode [...] CBC and CMP in 1 week in [place]. If she does have a small chordal [...] regurgitation Post-Procedure Diagnose(s): Nonrheumatic mitral valve regurgitation [facility] Transesophageal Brief Post-Procedure Report [...] Chance MD - 03/27/2021 8:00 AM CDT [facility] Pre-Sedation Assessment H&P Update Chief complaint/ History of present illness/ Indication for procedure: Mitral re gurgitation Planned Procedure/ Treatment: Transesophageal Echocardiogram History and Physical Status: Current H&P (<30 days) on chart, reviewed, and physical exam performed within 24 hours of procedure. No changes noted. Pre-Sedation/Analgesia ASA Status: III - Patient with severe systemic disease Plan for Anesthesia: Per [facility] service Airway Assessment: Mallampati Class II: Visibility of hard and soft palate, uppe r portion of tonsils and uvula CSHA Clinical Frailty Scale: Managing Well - People whose medical problems are w ell controlled, but are not regularly active beyond routine walking. documented in this encounter Plan of Treatment Care Team Description Date Type Specialty 05/20/2021 Lab Lab 05/20/2021 Lab [place] [address] [facility] [address] [place] [address] [phone] 06/10/2021 Office Visit Cardiology documented as of [...] JOYCE SAXENA Date: 03/27/2021 08:02 Chart #: [id number] : 1950 Gender F Location: [facility] Sono: lgor man : Age: 70 Room #: H3R R-14 Referring: LLOYD BRODERICK Fellow: Procedure: ECHO TRANSESOPHAGEAL [facility] COLOR FLOW AND DOPPLER Indication:Mitral valve prolapse; Heart palpitations; Mitral valve insufficiency, unspecified etiology; Agatston CAC score 100-199 Procedure: The patient was kept ROVING TECHNICIAN O after midnight. Informed consent was obtained. [...] JOYCE SAXENA Date: 03/27/2021 08:02 Chart #: [id number] : 1950 Gender F Location: [facility] Sono: kehinde : Age: 70 Room #: [place] [address] Referring: LLOYD BRODERICK Fellow: Procedure: ECHO TRANSESOPHAGEAL [...]
--- OUTSIDE RECORDS SUMMARY | 2021-05-12 04:03 | XMS REPORT | Encounter Summary ---
Author Author [facility] Organization [facility] Address Unknown Phone Unavailable Care Team Providers Care Relish Blender Name Role Phone Sergey, Jean ROUSE PCP Reason for Referral * MRI/CAT/PET Scan (Routine) Referred By Contact Referred To Contact Status Reason Specialty Diagnoses / Procedures Mike Steve MD [address] [facility] [address] [place] [address] [facility] [address] [place] [address] Closed Cardiology Diagnoses Mitral valve insufficiency, unspecified etiology Mitral annular calcification Preop cardiovascular exam Pre-procedure lab exam P rocedures CV CT Heart gated study Electronically signed by Mike Steve MD at Reason for Visit * Reason Onset Date Comments TMVR Referral 04/05/2021 Encounter Details Care Team Description Date Type Department Dispatch OfficerRandee LPN [facility] Referral 04/05/2021 Telephone [facility] al Valve & Vascular Clinic [address] [id number] Social History Date Tobacco Use Types Packs/Day [...] note were not included. From: Mike Steve <[email or web address]> Sent: Saturday, April 03, 2021 2:55 PM To: Ramón Sanchez <Secure> <[email or web address]>; Lloyd Broderick < [email or web address]> Cc: Randee Bradley <[email or web address]>; Nhi Wallis < [email or web address]> Subject: RE: Joyce Saxena 52 [place], lets bring her to [facility] clinic with a CTA chest Thanks Mike From: Ramón Sanchez <[email or web address]> Sent: Saturday, April 03, 2021 2:52 PM To: Mike Steve <[email or web address]>; Lloyd Broderick < [email or web address]> Subject: Re: Joyce Riderashley 52 WARNING: This message originated from outside of [facility]' email system. DO NOT clic k links or open attachments unless you recognize the sender ([email or web address]) a nd know the content is safe. Yeah. Significant Mac. could repair but not long lasting repair I expect. Would not be able put a ring at all. JRD Get [place] [employer] From: Mike Steve <[email or web address]> Sent: Saturday, April 03, 2021 1:03:51 PM To: Lloyd Broderick <[email or web address]>; Ramón Sanchez <Secure> < [email or web address]> Subject: Joyce Saxena 52 Feliberto Toribio, You looked at this ladys MR and recommended we see her in Valve Clinic. To joe trevino are you concerned about her MAC? Thanks Mike documented in this encounter Plan of Treatment Care Team Description Date Type Specialty 05/20/2021 Lab Lab 05/20/2021 Lab [place] [address] [id number] 06/10/2021 Office Visit Cardiology Order Schedule Name Type Priority Associated Diag noses Expected: 04/16/2021, Expires: 2 Basic Metabolic Panel Lab STAT Mitral v alve insufficiency, unspecified etiology Mitral annular calcification Preop cardiovascular exam Pre-procedure lab exam documented as of this encounter Results * CV CT Heart gated study (05/03/2021 9:16 AM CDT) Specimen Narrative Performed At [facility] NAME: JOYCE SAXENA : [id number] GENDER: F ACCOUNT NUM: [id number] TEST: CTA OF THE HEART GATED TEST DATE: TEST LOCATION: [facility] INPATIENT: Outpatient REFERRING PHYSICIAN: Mike tyler [...] systolic functi on. OVERREAD: Finn Cheatham MD [address] [facility], [address] [place] [address] D: 2021-05-03 15:30:29.0 T: 2021-05-03 15:44:46.0 PROVIDER APPROVAL DATETIME: 2021-04-17 15:44:45.0 Procedure Note Interface, External Ris In - 05/06/2021 8:08 AM CDT NAME: JOYCE SAXENA : [id number] GENDER: F ACCOUNT NUM: [id number] TEST: CTA OF THE HEART GATED TEST DATE: TEST LOCATION: [facility] INPATIENT: Outpatient REFERRING PHYSICIAN: Mike Steve [...] function . OVERREAD: Finn Cheatham MD [address] [facility], [address] [place] [address] D: 2021-05-03 15:30:29.0 T: 2021-05-03 15:44:46.0 PROVIDER [...]
--- OUTSIDE RECORDS SUMMARY | 2021-05-12 04:03 | XMS REPORT | Encounter Summary ---
Author Author [facility] Organization [facility] Address Unknown Phone Unavailable Care Team Providers Care [employer] Name Role Phone Self, Jean ROUSE PCP Encounter Details Care Team Description Date [place] [address] [place] [address] [phone] 04/03/2021 Documentation [facility] [address] [place] [address] Social History Date Tobacco Use Types Packs/Day [...] 05/20/2021 Lab [place] [address] [place] [address] [phone] 06/10/2021 Office Visit Cardiology documented as of this encounter Visit Diagnoses Not on filedocumented in this encounter
[2021-05-12] MEDS ORDERED: PANTOPRAZOLE 40 MG (PROTONIX) VIAL IV STA (04:26)
[2021-05-12 04:29] LABS: BASOPHILS % (AUTO) 1 % (0-10); EOSINOPHILS # (AUTO) 0.2 10^3/uL (0.0-0.3); EOSINOPHILS % (AUTO) 4 % (0-10); HEMATOCRIT 44 % (35-52); HEMOGLOBIN 14.9 g/dL (11.5-16.0); LYMPHOCYTES # (AUTO) 1.4 X 10^3 (1.0-4.0); LYMPHOCYTES % (AUTO) 24 % (12-44); MEAN CORPUSCULAR HEMOGLOBIN 31 pg (25-34); MEAN CORPUSCULAR HGB CONC 34 g/dL (32-36); MEAN CORPUSCULAR VOLUME 91 fL (80-99); MEAN PLATELET VOLUME 9.8 fL (9.0-12.2); MONOCYTES # (AUTO) 0.6 X 10^3 (0.0-1.0); MONOCYTES % (AUTO) 11 % (0-12); NEUTROPHILS # (AUTO) 3.5 X 10^3 (1.8-7.8); NEUTROPHILS % (AUTO) 61 % (42-75); PLATELET COUNT 207 10^3/uL (130-400); WHITE BLOOD COUNT 5.8 10^3/uL (4.3-11.0)
--- NOTE | 2021-05-12 04:29 | ED Cardiac General ---
History of Present Illness General Chief Complaint: Chest Pain Stated Complaint: CHEST PAIN; HIGH BP; HX OF HEART PROB Nursing Triage Note: Patient states that she had some pressure/pain on the left side of her chest. Patient also states that she is scheduled to have bypass surgery on May 23 with mitral valve replacement. Patient states that she is anxious and she wasn't sure if this was anxiety or her heart condition worsening. Symptoms started at approximately 0230. Patient is symptom free currently. Source: patient, family, old records History of Present Illness Date Seen by Provider: May 12, 2021 Time Seen by Provider: 03:59 Initial Comments 70-year-old female presenting with complaints of having left-sided pressure pain in her chest. She states this started around 2 or 2:30 in the morning when she got up to go to use the restroom. She denies feeling anxious or worried about anything at the time. Overall she is very anxious and worried about being told that she would be having bypass surgery along with valve replacement on May 23. She had a heart cath at [facility] on 10 May and had findings of coronary artery blockage in addition to the valve disease. She denies having a ny nausea, vomiting, shortness of breath. She does have some increased GERD and heartburn symptoms tonight. She tried some Tums at home but it was not helping. She was not sure how much of this was anxiety versus heart versus something else causing her symptoms. She again admits to being very anxious about being told that she needed to have bypass and have the valve replacement on the . She denies having any of the chest pain currently but has some continued mild heartburn symptoms. 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 po BENDING FRAME OPERATOR: No Associated Systoms: Chest Pain, Cough (Mild intermittent); No Diaphoresis, No Fever/Chills, No Headaches, No Loss of Appetite, No Malaise, No Nausea/Vomiting, No Seizure; Shortness of Air; No Syncope, No Weakness Allergies and Home Medications Allergies Coded Allergies: amoxicillin (Verified Allergy, Unknown, 03/06/21) clavulanic acid (Verified Allergy, Unknown, 03/06/21) Patient Home Medication List Home Medication List Reviewed: Yes Ascorbic Acid (Vitamin C) 250 Mg Tab.chew, 250 MG PO DAILY, (Reported) Entered as Reported by: FRANCO VAZQUEZ on 03/06/211226 Atorvastatin Calcium (Atorvastatin Calcium) 20 Mg Tablet, 20 MG PO HS, (Reported) Entered as Reported by: FRANCO VAZQUEZ on 03/06/211226 Ca Carbonate/Vitamin D3/Vit K (Citracal Soft Chew) 1 Each Tab.chew, 1 EACH PO DAILY, (Reported) Entered as Reported by: FRANCO VAZQUEZ on 03/06/211226 Cholecalciferol (Vitamin D3) (Vitamin D3) 50 Mcg Tab.chew, 50 MCG PO DAILY, (Reported) Entered as Reported by: FRANCO VAZQUEZ on 03/06/211226 Ciclopirox Olamine (Ciclopirox) 15 Gm Cream..g., 1 APPLIC TOP BID, (Reported) Entered as Reported by: FRANCO VAZQUEZ on 03/06/211226 Fluticasone Propionate (Fluticasone Propionate) 16 Gm [place].susp, 1 SPRAY NSEACH DAILY, (Reported) Entered as Reported by: FRANCO VAZQUEZ on 03/06/211226 Folic Acid/Multivit-Minerals (Women's Multivitamin Gummies) 200 Mcg Tab.chew, 200 MCG PO DAILY, (Reported) Entered as Reported by: FRANCO VAZQUEZ on 03/06/211226 Furosemide (Furosemide) 40 Mg Tablet, 40 MG PO DAILY Prescribed by: ILENE BOURGEOIS on 03/07/21 134 Ibuprofen (Ibuprofen) 100 Mg Tab.chew, 200 MG PO Q8H PRN for PAIN-MILD (1-4), (Reported) Entered as Reported by: FRANCO VAZQUEZ on 03/06/211226 Potassium Chloride (Potassium Chloride) 40 Meq/15 Ml Liquid, 10 MEQ PO DAILY Prescribed by: ILENE BOURGEOIS on 03/07/21 1346 Ubidecarenone (Coq10) 50 Mg Tab.chew, 50 MG PO DAILY, (Reported) Entered as Reported by: FRANCO VAZQUEZ on 03/06/211226 Review of Systems Review of Systems Constitutional: no symptoms reported EENTM: No Symptoms Reported Respiratory: No Symptoms Reported Cardiovascular: See HPI Gastrointestinal: No Symptoms Reported Genitourinary: No Symptoms Reported Musculoskeletal: no symptoms reported Skin: No rash Psychiatric/Neurological: Anxiety Hematologic/Lymphatic: Denies Blood Clots Past Cityhzu-Uinzxn-Uyfcxi Hx Patient Social History Tobacco Use?: No Substance use?: No Pt feels they are or have been: No Past Medical History Surgery/Hospitalization HX: Cardiac Cardiac: Yes High Cholesterol, Hypertension, Valvular Heart Disease Physical Exam Vital Signs Vital Signs - First Documented 05/12/21 03:59 Temp 37.0 Pulse 102 Resp 20 B/P (MAP) 169/96 (120) Pulse Ox 96 O2 Delivery Room Air Capillary Refill : Less Than 3 Seconds Height, Weight, BMI Height: '" Weight: lbs. oz. 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 Norm as Tested Skin: Normal Color, Warm/Dry Progress/Results/Core Measures Results/Orders Lab Results Laboratory Tests Test 05/12/21 04:12 Range/Units White Blood Count 5.8 4.3-11.0 10^3/uL Red Blood Count 4.84 3.80-5.11 10^6/uL Hemoglobin 14.9 11.5-16.0 g/dL Hematocrit 44 35-52 % Mean Corpuscular Volume 91 80-99 fL Mean Corpuscular Hemoglobin 31 25-34 pg Mean Corpuscular Hemoglobin Concent 34 32-36 g/dL Red Cell Distribution Width 13.2 10.0-14.5 % Platelet Count 207 130-400 10^3/uL Mean Platelet Volume 9.8 9.0-12.2 fL Immature Granulocyte % (Auto) 0 % Neutrophils (%) (Auto) 61 42-75 % Lymphocytes (%) (Auto) 24 12-44 % Monocytes (%) (Auto) 11 0-12 % Eosinophils (%) (Auto) 4 0-10 % Basophils (%) (Auto) 1 0-10 % Neutrophils # (Auto) 3.5 1.8-7.8 X 10^3 Lymphocytes # (Auto) 1.4 1.0-4.0 X 10^3 Monocytes # (Auto) 0.6 0.0-1.0 X 10^3 Eosinophils # (Auto) 0.2 0.0-0.3 10^3/uL Basophils # (Auto) 0.0 0.0-0.1 10^3/uL Immature Granulocyte # (Auto) 0.0 0.0-0.1 10^3/uL Prothrombin Time 12.6 12.2-14.7 SEC INR Comment 0.9 0.8-1.4 Activated Partial Thromboplast Time 26 24-35 SEC Sodium Level 135 135-145 MMOL/L Potassium Level 4.2 3.6-5.0 MMOL/L Chloride Level 100 98-107 MMOL/L Carbon Dioxide Level 24 21-32 MMOL/L Anion Gap 11 5-14 MMOL/L Blood Urea Nitrogen 14 7-18 MG/DL Creatinine 0.68 0.60-1.30 MG/DL Estimat Glomerular Filtration Rate 86 BUN/Creatinine Ratio 21 Glucose Level 109 H 70-105 MG/DL Calcium Level 10.2 H 8.5-10.1 MG/DL Corrected Calcium 9.8 8.5-10.1 MG/DL Magnesium Level 2.3 1.6-2.4 MG/DL Total Bilirubin 0.5 0.1-1.0 MG/DL Aspartate Amino Transf (AST/SGOT) 20 5-34 U/L Alanine Aminotransferase (ALT/SGPT) 19 0-55 U/L Alkaline Phosphatase 96 40-136 U/L Troponin I 0.30 <0.30 NG/ML Pro-B-Type Natriuretic Peptide 352.3 H <75.0 PG/ML Total Protein 7.6 6.4-8.2 GM/DL Albumin 4.5 3.2-4.5 GM/DL Lipase 58 8-78 U/L My Orders Orders - CLEVELAND LONG MD Cbc With Automated Diff (05/12/21 04:26) Magnesium (05/12/21 04:26) Chest 1 View Ap/Pa Only (05/12/21 04:26) Ekg Tracing (05/12/21 04:26) Comprehensive Metabolic Panel (05/12/21 04:26) Protime With Inr (05/12/21 04:26) Partial Thromboplastin Time (05/12/21 04:26) Monitor-Rhythm Ecg Trace Only (05/12/21 04:26) Ed Iv/Invasive Line Start (05/12/21 04:26) Lipase (05/12/21 04:26) Troponin I Fs (05/12/21 04:26) Probnp Fs (05/12/21 04:26) Pantoprazole Injection (Protonix Injecti (05/12/21 04:26) Vital Signs/I&O 05/12/21 05/12/21 03:59 05:31 Temp 37.0 Pulse 102 76 Resp 20 18 B/P (MAP) 169/96 (120) 134/76 Pulse Ox 96 94 O2 Delivery Room Air Room Air Blood Pressure Mean: 120 Progress Progress Note #1: Progress Note Obtain labs as well as electrocardiogram, chest x-ray. Give Protonix to help with reflux and GERD. Reassess after labs are back and patient has had time with the medicine on board to see if that helps with her symptoms. Progress Note #2: Progress Note Labs appear stable without acute significant abnormality. Her cardiac enzymes are negative. Chest x-ray does not show any acute process to account for her symptoms. Electrocardiogram appears stable from prior tracings. Will reassess patient and reassure her that test have all been normal so far. Encouraged to follow-up with [facility] for further concern and direction about when to be seen in the emergency department Initial ECG Impression Date: May 12, 2021 Initial ECG Impression Time: 04:00 Initial ECG Rate: 83 Initial ECG Rhythm: Normal Sinus Initial ECG Comparisson: Unchanged Comment Normal sinus rhythm with a heart rate of 83 bpm. WV interval 169 ms. Probable left atrial enlargement. Q waves in V1 and V2. QT interval 359 ms with a QTc interval 422 ms. Appears similar to prior tracings in the system. Diagnostic Imaging Diagonstic Imaging: Xray Plain Films/CT/US/NM/MRI: chest Comments On my review of her 1 view chest x-ray she has no acute process, infiltrate, effusion. Appears stable from prior tracings. Reviewed: Reviewed by Me Departure Impression Primary Impression: GERD with esophagitis Qualified Codes: K21.00 - Gastro-esophageal reflux disease with esophagitis, without bleeding Additional Impressions: Non-cardiac chest pain Anxiety about health Disposition: HOME, SELF-CARE Condition: Improved Departure-Patient Inst. Decision time for Depature: 05:27 Referrals: SELF,RICHIE ROUSE (PCP/Family) Primary Care Physician Patient Instructions: Acid Reflux, Adult and Adolescent ED, Anxiety, Adult ED, Chest Pain, Adult ED Add. Discharge Instructions: Follow up with [facility] for continued concerns and for your scheduled surgery on May 23 If having worsening pains, nausea with vomiting then check back for further concerns. All discharge instructions reviewed with patient and/or family. Voiced understanding. CLEVELAND LONG MD May 12, 2021 04:29
[2021-05-12 04:31] LABS: INR 0.9 (0.8-1.4); PROTHROMBIN TIME PATIENT 12.6 SEC (12.2-14.7)
[2021-05-12 04:39] LABS: POTASSIUM 4.2 MMOL/L (3.6-5.0)
[2021-05-12 04:40] LABS: ALBUMIN 4.5 GM/DL (3.2-4.5); BILIRUBIN,TOTAL 0.5 MG/DL (0.1-1.0); CALCIUM 10.2 MG/DL (8.5-10.1); CREATININE SERUM 0.68 MG/DL (0.60-1.30); MAGNESIUM 2.3 MG/DL (1.6-2.4); TOTAL PROTEIN 7.6 GM/DL (6.4-8.2)
[2021-05-12 05:31] VITALS: BP 134/76
--- NOTE | 2021-05-12 08:07 | Diagnostic Imaging Report ---
History: Chest pain COMPARISON: 04/12/2021 TECHNIQUE: Frontal view the chest FINDINGS: Lung volumes are large. No consolidation is seen. There is no pleural effusion or pneumothorax. The cardiac silhouette is normal in size. IMPRESSION: 1. No acute pulmonary abnormality. Dictated by: Dictated on workstation # [id number]
== END 2021-05-12 05:31 | disposition home or self-care (01) ==
LOC: EDUNIT# 03:56 → ER FS 03:58
DX: K21.00 Gastro-esophageal reflux disease with esophagitis, without bleeding (principal); R07.89 Other chest pain; I10 Essential (primary) hypertension; E78.00 Pure hypercholesterolemia, unspecified; I25.10 Atherosclerotic heart disease of native coronary artery without angina pectoris; Z95.9 Presence of cardiac and vascular implant and graft, unspecified; Z79.899 Other long term (current) drug therapy
CPT/HCPCS: 36415; 71045; 80053; 83690; 83735; 83880; 84484; 85025; 85610; 85730; 93005; 93041; 96374

== ENCOUNTER → 2021-06-04 | Outpatient (CLI) | payer MEDICARE, OTHER ==
[2021-06-04 16:49] LABS: PROTHROMBIN TIME PATIENT 21.3 SEC (12.2-14.7)
[2021-06-04 16:50] LABS: INR 1.8 (0.8-1.4)
== END ==
LOC: IHC 16:17
PROVIDERS: ATTEND Family Medicine
DX: I34.1 Nonrheumatic mitral (valve) prolapse (principal); I10 Essential (primary) hypertension
CPT/HCPCS: 85610

== ENCOUNTER → 2021-06-07 | Outpatient (CLI) | payer MEDICARE, OTHER ==
[2021-06-07 14:04] LABS: PROTHROMBIN TIME PATIENT 22.8 SEC (12.2-14.7)
== END ==
LOC: IHC 13:03
DX: I34.1 Nonrheumatic mitral (valve) prolapse (principal); Z79.01 Long term (current) use of anticoagulants
CPT/HCPCS: 85610

== ENCOUNTER → 2021-06-14 | Outpatient (CLI) | payer MEDICARE, OTHER ==
[2021-06-14 12:04] LABS: INR 2.6 (0.8-1.4); PROTHROMBIN TIME PATIENT 28.6 SEC (12.2-14.7)
== END ==
LOC: IHC 10:47
PROVIDERS: ATTEND Family Medicine
DX: Z79.01 Long term (current) use of anticoagulants (principal)
CPT/HCPCS: 85610

== ENCOUNTER 2021-08-14 09:17 | Outpatient (RCR) | payer MEDICARE, OTHER | END 2021-08-16 | disposition home or self-care (01) | LOC: CR 09:17 | PROVIDERS: ATTEND Internal Medicine Hematology & Oncology | DX: Z95.1 Presence of aortocoronary bypass graft (principal); Z95.2 Presence of prosthetic heart valve | CPT/HCPCS: 93798 ==

== ENCOUNTER → 2021-09-11 | Outpatient (CLI) | payer MEDICARE, OTHER ==
--- NOTE | 2021-09-11 11:44 | Diagnostic Imaging Report ---
INDICATION: Neck pain with burning sensation in the left shoulder. TIME OF EXAM: 11:31 a.m. FINDINGS: Curvature and alignment of the cervical spine is normal. There is degenerative disc disease at C5-C6 level with disc space narrowing and marginal spurring. There is multilevel facet arthropathy noted. No fractures are seen. Prevertebral tissues are within normal limits. Odontoid is intact. IMPRESSION: Cervical spondylosis and facet arthropathy. No acute bony abnormality is detected. Dictated by: Dictated on workstation # [id number]
== END ==
LOC: RAD FS 11:20
PROVIDERS: ATTEND Family Medicine
DX: M47.812 Spondylosis without myelopathy or radiculopathy, cervical region (principal)
CPT/HCPCS: 72040

== ENCOUNTER 2021-09-13 09:03 | Outpatient (RCR) | payer MEDICARE, OTHER | END 2021-09-16 | disposition home or self-care (01) | LOC: CR 09:03 | PROVIDERS: ATTEND Internal Medicine Hematology & Oncology | DX: Z95.1 Presence of aortocoronary bypass graft (principal); Z95.2 Presence of prosthetic heart valve | CPT/HCPCS: 93798 ==

== ENCOUNTER 2021-10-10 16:20 | Emergency (ER) | payer MEDICARE, OTHER ==
[~2021-10-10] VITALS: Ht 162 cm; Wt 60.0 kg
--- NOTE | 2021-10-10 16:33 | ED EENT ---
History of Present Illness General Stated Complaint: TONGUE LAC Source: patient Exam Limitations: no limitations History of Present Illness Date Seen by Provider: Oct 10, 2021 Time Seen by Provider: 16:25 Initial Comments 70-year-old female with past medical history of mechanical heart valve replacement on warfarin and baby aspirin coming in about an hour and a half after she bit her tongue while eating and she is still having bleeding from her tongue. Denies any difficulty bleeding, denies any significant blood loss, denies any lightheadedness, chest pain, shortness of breath, or any other conc erns. She is having very mild constant throbbing pain in her tongue which nothing really seems to make better or worse. Allergies and Home Medications Allergies Coded Allergies: amoxicillin (Verified Allergy, Unknown, 03/06/21) clavulanic acid (Verified Allergy, Unknown, 03/06/21) Patient Home Medication List Home Medication List Reviewed: Yes Ascorbic Acid (Vitamin C) 250 Mg Tab.chew, 250 MG PO DAILY, (Reported) Entered as Reported by: FRANCO VAZQUEZ on 03/06/21 122 Atorvastatin Calcium (Atorvastatin Calcium) 20 Mg Tablet, 20 MG PO HS, (Reported) Entered as Reported by: FRANCO VAZQUEZ on 03/06/21 122 Ca Carbonate/Vitamin D3/Vit K (Citracal Soft Chew) 1 Each Tab.chew, 1 EACH PO DAILY, (Reported) Entered as Reported by: FRANCO VAZQUEZ on 03/06/21 122 Cholecalciferol (Vitamin D3) (Vitamin D3) 50 Mcg Tab.chew, 50 MCG PO DAILY, (Reported) Entered as Reported by: FRANCO VAZQUEZ on 03/06/21 122 Ciclopirox Olamine (Ciclopirox) 15 Gm Cream..g., 1 APPLIC TOP BID, (Reported) Entered as Reported by: FRANCO VAZQUEZ on 03/06/21 1227 Fluticasone Propionate (Fluticasone Propionate) 16 Gm [place].susp, 1 SPRAY NSEACH DAILY, (Reported) Entered as Reported by: FRANCO VAZQUEZ on 03/06/21 122 Folic Acid/Multivit-Minerals (Women's Multivitamin Gummies) 200 Mcg Tab.chew, 200 MCG PO DAILY, (Reported) Entered as Reported by: FRANCO VAZQUEZ on 03/06/21 122 Furosemide (Furosemide) 40 Mg Tablet, 40 MG PO DAILY Prescribed by: ILENE BOURGEOIS on 03/07/21 1346 Ibuprofen (Ibuprofen) 100 Mg Tab.chew, 200 MG PO Q8H PRN for PAIN-MILD (1-4), (Reported) Entered as Reported by: FRANCO VAZQUEZ on 03/06/21 1227 Potassium Chloride (Potassium Chloride) 40 Meq/15 Ml Liquid, 10 MEQ PO DAILY Prescribed by: ILENE BOURGEOIS on 03/07/21 1346 Ubidecarenone (Coq10) 50 Mg Tab.chew, 50 MG PO DAILY, (Reported) Entered as Reported by: FRANCO VAZQUEZ on 03/06/21 1227 Review of Systems Review of Systems Constitutional: No chills, No fever Eyes: Denies Blurred Vision Ears: Denies Dizziness Nose: denies epistaxis Mouth: other (Tongue laceration) Throat: no symptoms reported Respiratory: no symptoms reported Cardiovascular: no symptoms reported Gastrointestinal: no symptoms reported Musculoskeletal: no symptoms reported Skin: no symptoms reported Neurological: No Symptoms Reported Hematologic/Lymphatic: No Symptoms Reported Immunological/Allergic: no symptoms reported All Other Systems Reviewed Negative Unless Noted: Yes Past Zumwkbb-Ppyenv-Rzcayf Hx Patient Social History Tobacco Use?: No Past Medical History Surgery/Hospitalization HX: Cardiac Surgeries: Yes (mechanical mitral valve replacement) Cardiac: Yes High Cholesterol, Hypertension, Valvular Heart Disease Physical Exam Vital Signs Vital Signs - First Documented 10/10/21 16:36 Temp 35.8 Pulse 88 Resp 18 B/P (MAP) 159/90 (113) Pulse Ox 99 O2 Delivery Room Air Height, Weight, BMI Height: '" Weight: lbs. oz. kg; 20.00 BMI Method: General Appearance: WD/WN, no apparent distress Eyes: bilateral eye normal inspection Ears: bilateral ear auricle normal Nose: normal inspection Mouth/Throat: pharynx normal; No dental tenderness; other (Less than 1 cm superficial laceration to the right lateral aspect of the tongue, less than 1 mm in depth, is actively oozing slow venous blood) Neck: non-tender, full range of motion, supple, normal inspection Cardiovascular: regular rate, rhythm, no edema, other (Mechanical heart valve with obvious mechanical murmur) Respiratory: chest non-tender, lungs clear, normal breath sounds, no respiratory distress, no accessory muscle use Gastrointestinal: normal bowel sounds, non tender, soft; No guarding, No rebound Neurologic/Psychiatric: no motor/sensory deficits, alert, normal mood/affect Skin: normal color, warm/dry Progress/Results/Core Measures Results/Orders My Orders Orders - JESUS CARUSO MD Tranexamic Acid Injection (Cyklokapron I (10/10/21 16:45) Lidocaine/Epi 2% 1:100,000 (Xylocaine/Ep (10/10/21 17:00) Medications Given in ED Current Medications Medications Dose Ordered Sig/Kelsi Route Start Time Stop Time Status Last Admin Dose Admin Lidocaine/ Epinephrine 20 ml ONCE ONCE INJ 10/10/21 17:00 10/10/21 17:01 DC 10/10/21 17:05 10 ML Tranexamic Acid ONCE ONCE NA 10/10/21 16:45 10/10/21 16:46 DC 10/10/21 17:04 1,000 MG Vital Signs/I&O 10/10/21 16:36 Temp 35.8 Pulse 88 Resp 18 B/P (MAP) 159/90 (113) Pulse Ox 99 O2 Delivery Room Air Progress Progress Note : Progress Note 70-year-old female with above history coming in due to continued bleeding after biting her tongue while on warfarin. ABCs were intact and vitals were stable on presentation. Physical exam with a very superficial laceration that would not be amenable to any type of closure on the tongue. Applied pressure for 5 minutes with continued oozing. Then placed tranexamic acid on gauze and applied pressure for 10 minutes x2. Continued to bleed so then injected with lido with epi and held pressure with epi soaked gauze for 10 minutes. This stopped the bleeding. Continued to monitor her and on reassessment remained hemostatic. I believe she is stable for discharge with outpatient follow-up. She was sent home with strict return precautions. Departure Impression Primary Impression: Tongue laceration Qualified Codes: S01.512A - Laceration without foreign body of oral cavity, initial encounter Additional Impression: Anticoagulated Disposition: HOME, SELF-CARE Condition: Stable Departure-Patient Inst. Decision time for Depature: 17:25 Referrals: SELF,RICHIE ROUSE (PCP/Family) Primary Care Physician Patient Instructions: Wound Care ED Add. Discharge Instructions: If you begin bleeding again, apply pressure with a gauze for 15 minutes without looking. Give this a total of 3 different times if needed. If the bleeding is very slow after that it is okay to continue to monitor it. If the bleeding is severe then come back to the ER. Your tongue is going to be swollen for the next day or so so eat a soft mechanical diet and mostly liquids. Anything that requires chewing I do not recommend because you could bite your tongue again. I sent a prescription for mouthwash to help prevent infections which you should use 2-3 times a day for about 20 seconds at a time. Scripts Chlorhexidine Gluconate (Chlorhexidine Gluconate) 473 Ml Mouthwash 15 ML MM TID for 7 Days, #473 ML Prov: JESUS CARUSO MD 10/10/21 JESUS CARUSO MD Oct 10, 2021 16:33
[2021-10-10 16:36] VITALS: BP 159/90
[2021-10-10] MEDS ORDERED: TRANEXAMIC ACID 100 MG/ML 10 ML INJECTION ONE (16:45)
[2021-10-10] MEDS ORDERED: LIDOCAINE/EPI 2% 1:100,00 (XYLOCAINE) 20 ML VIAL INJ ONE (17:00)
[2021-10-10] MEDS ORDERED: NFCHLORHGL MM (17:28)
== END 2021-10-10 17:30 | disposition home or self-care (01) ==
LOC: EDUNIT# 16:20 → ER FS 16:22
DX: S01.512A Laceration without foreign body of oral cavity, initial encounter (principal); Z79.01 Long term (current) use of anticoagulants; W50.3XXA Accidental bite by another person, initial encounter
CPT/HCPCS: 99284

== ENCOUNTER → 2021-10-14 | Outpatient (RCR) | payer MEDICARE, OTHER ==
[~2021-10-14] MED LIST changes: +NFCHLORHGL MM
== END | disposition home or self-care (01) ==
LOC: CR 09-23 08:31
PROVIDERS: ATTEND Internal Medicine Hematology & Oncology
DX: Z29.8 Encounter for other specified prophylactic measures (principal); Z95.1 Presence of aortocoronary bypass graft; Z95.2 Presence of prosthetic heart valve
CPT/HCPCS: 93798

== ENCOUNTER 2021-10-16 06:39 | Outpatient (RCR) | payer MEDICARE, OTHER | END 2021-11-14 | disposition home or self-care (01) | LOC: CR 06:39 | PROVIDERS: ATTEND Internal Medicine Hematology & Oncology | DX: Z29.8 Encounter for other specified prophylactic measures (principal); Z95.1 Presence of aortocoronary bypass graft; Z95.2 Presence of prosthetic heart valve | CPT/HCPCS: 93798 ==

== ENCOUNTER → 2021-11-04 | Outpatient (CLI) | payer MEDICARE, OTHER ==
--- NOTE | 2021-11-04 17:53 | Diagnostic Imaging Report ---
PROCEDURE: MR imaging cervical spine without contrast. TECHNIQUE: Multiplanar, multisequence MR imaging of the cervical spine was performed without contrast. INDICATION: Neck pain radiating to the right shoulder. COMPARISON: Radiographs from 09/11/2021. FINDINGS: Alignment of the cervical spine appears normal with no spondylolisthesis. There is moderate disc height loss at C5-C6 with mild disc height loss elsewhere in the cervical spine. Vertebral body heights are preserved. No acute fracture is seen. There does appear to be moderate bone marrow edema at the left superior endplate of T1 extending toward the pedicle. The spinal cord demonstrates no focal lesions. There is facet arthropathy bilaterally. Soft tissues about the cervical spine demonstrate no acute abnormality. C2-C3: No significant disc bulge. No spinal canal or foraminal stenosis. C3-C4: Posterior disc osteophyte complex. Mild right foraminal narrowing. No left foraminal narrowing or spinal canal stenosis. C4-C5: Posterior disc osteophyte complex. Mild right foraminal narrowing. No spinal canal or left foraminal stenosis. C5-C6: Posterior disc osteophyte complex. Moderate spinal canal stenosis. No spinal cord lesions are seen. Oyablsgm-fk-urdxff bilateral foraminal stenosis. C6-C7: Posterior disc osteophyte complex. No spinal canal or foraminal stenosis. C7-T1: No significant disc bulge. No spinal canal or foraminal stenosis. IMPRESSION: 1. Degenerative changes in the cervical spine, most pronounced at C5-C6. This results in moderate spinal canal stenosis and hkrnneda-tb-ulkliz foraminal stenosis at that level. 2. Bone marrow edema at the superior endplate of T1, may be due to degenerative change. No fracture line is seen. Dictated by: Dictated on workstation # [id number]
== END ==
LOC: RAD 14:00
PROVIDERS: ATTEND Family Medicine
DX: M47.22 Other spondylosis with radiculopathy, cervical region (principal); M48.02 Spinal stenosis, cervical region; R93.7 Abnormal findings on diagnostic imaging of other parts of musculoskeletal system
CPT/HCPCS: 72141

== ENCOUNTER 2023-02-20 04:47 | Emergency (ER) | payer MEDICARE, OTHER ==
[~2023-02-20] VITALS: Ht 162 cm; Wt 57.5 kg
[2023-02-20 04:55] VITALS: BP 177/90
--- NOTE | 2023-02-20 05:23 | ED Cardiac General ---
History of Present Illness General Chief Complaint: Cardiac/General Problems Stated Complaint: BP HIGH Nursing Triage Note: Patient ambulatory to [facility] via POV w c/o increased bp, feeling flushed, dry mouth, and headache. Patient states her last dose of bp med was 1700 last night. Patient woke up approx 0330 and felt flushed took her blood pressure and it was increased again. cardiac hx. Source: patient Exam Limitations: no limitations History of Present Illness Date Seen by Provider: Feb 20, 2023 Time Seen by Provider: 04:55 Initial Comments 72-year-old female with past medical history most notable for hypertension, mechanical heart valve on warfarin, and high cholesterol coming in due to elevated blood pressure. She takes metoprolol 25 mg twice a day. She took it a little early last night because she felt flushed in the face and took her blood pressure and it was 190s over 100. Typically at nighttime its just under 140s s ystolic. Typically in the morning just after taking her blood pressure medicine she is around 100 over 60s. She took it again when she woke up around 330 this morning and it was again 190 systolic so she presented to the ER. She denies any chest pain, shortness of breath, abdominal pain, nausea, vomiting, diarrhea, weakness, numbness, headache, vision changes, or any other concerns. She states she normally watches what she eats very well, but has had a significantly increased amount of sodium this past week compared to normal. Allergies and Home Medications Allergies Coded Allergies: amoxicillin (Verified Allergy, Unknown, 03/06/21) clavulanic acid (Verified Allergy, Unknown, 03/06/21) Patient Home Medication List Home Medication List Reviewed: Yes Ascorbic Acid (Vitamin C) 250 Mg Tab.chew, 250 MG PO DAILY, (Reported) Entered as Reported by: FRANCO VAZQUEZ on 03/06/21 1227 Atorvastatin Calcium (Atorvastatin Calcium) 20 Mg Tablet, 20 MG PO HS, (Reported) Entered as Reported by: FRANCO VAZQUEZ on 03/06/21 1227 Ca Carbonate/Vitamin D3/Vit K (Citracal Soft Chew) 1 Each Tab.chew, 1 EACH PO DAILY, (Reported) Entered as Reported by: FRANCO VAZQUEZ on 03/06/21 1227 Chlorhexidine Gluconate (Chlorhexidine Gluconate) 473 Ml Mouthwash, 15 ML MM TID Prescribed by: JESUS CARUSO on 10/10/21 1728 Cholecalciferol (Vitamin D3) (Vitamin D3) 50 Mcg Tab.chew, 50 MCG PO DAILY, (Reported) Entered as Reported by: FRANCO VAZQUEZ on 03/06/21 1227 Ciclopirox Olamine (Ciclopirox) 15 Gm Cream..g., 1 APPLIC TOP BID, (Reported) Entered as Reported by: FRANCO VAZQUEZ on 03/06/21 1227 Fluticasone Propionate (Fluticasone Propionate) 16 Gm [place].susp, 1 SPRAY NSEACH DAILY, (Reported) Entered as Reported by: FRANCO VAZQUEZ on 03/06/21 1227 Folic Acid/Multivit-Minerals (Women's Multivitamin Gummies) 200 Mcg Tab.chew, 200 MCG PO DAILY, (Reported) Entered as Reported by: FRANCO VAZQUEZ on 03/06/21 1227 Furosemide (Furosemide) 40 Mg Tablet, 40 MG PO DAILY Prescribed by: ILENE BOURGEOIS on 03/07/21 1346 Ibuprofen (Ibuprofen) 100 Mg Tab.chew, 200 MG PO Q8H PRN for PAIN-MILD (1-4), (Reported) Entered as Reported by: FRANCO VAZQUEZ on 03/06/21 1227 Potassium Chloride (Potassium Chloride) 40 Meq/15 Ml Liquid, 10 MEQ PO DAILY Prescribed by: ILENE BOURGEOIS on 03/07/21 1346 Ubidecarenone (Coq10) 50 Mg Tab.chew, 50 MG PO DAILY, (Reported) Entered as Reported by: FRANCO VAZQUEZ on 03/06/21 1227 Review of Systems Review of Systems Constitutional: No fever EENTM: No Symptoms Reported Respiratory: No Symptoms Reported Cardiovascular: No Symptoms Reported Gastrointestinal: No Symptoms Reported Genitourinary: No Symptoms Reported Musculoskeletal: no symptoms reported Skin: no symptoms reported Past Qarwvbd-Bufnwg-Aoqirh Hx Patient Social History Tobacco Use?: No Substance use?: No Alcohol Use?: No Immunizations Up To Date First/Initial COVID19 Vaccinat: unk 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 oz. kg; 21.00 BMI Method: General Appearance: No Apparent Distress, WD/WN HEENT: PERRL/EOMI, Normal ENT Inspection, Pharynx Normal Neck: Full Range of Motion, Normal Inspection, Non Tender, Supple Respiratory: Chest Non Tender, Lungs Clear, Normal Breath Sounds, No Accessory Muscle Use, No Respiratory Distress Cardiovascular: Regular Rate, Rhythm, No Edema, Normal Peripheral Pulses Gastrointestinal: Normal Bowel Sounds, Non Tender, Soft Extremity: Normal Capillary Refill, Normal Inspection, Normal Range of Motion, Non Tender, No Calf Tenderness, No Pedal Edema Neurologic/Psychiatric: Alert, No Motor/Sensory Deficits, Normal Mood/Affect Skin: Normal Color, Warm/Dry Progress/Results/Core Measures Results/Orders My Orders Orders - JESUS CARUSO MD Ekg Tracing (02/20/23 05:17) Metoprolol Succinate (Xl) Tab (Toprol Xl (02/20/23 05:30) Medications Given in ED Current Medications Medications Dose Ordered Sig/Kelsi Route Start Time Stop Time Status Last Admin Dose Admin Metoprolol Succinate 25 mg ONCE ONCE PO 02/20/23 05:30 02/20/23 05:31 DC 02/20/23 05:29 25 MG Vital Signs/I&O 02/20/23 04:55 Temp 35.5 Pulse 63 Resp 15 B/P (MAP) 177/90 (119) Pulse Ox 99 O2 Delivery Room Air Blood Pressure Mean: 119 Progress Progress Note : Progress Note 72-year-old female with above history coming in due to elevated blood pressure. ABCs were intact and vitals were stable on presentation. She seems mostly asymptomatic, specifically no chest pain or shortness of breath. She did feel flushed in her face earlier which certainly could be due to the elevated blood pressure. Initial blood pressure here in the 170s systolic, trended down by itself to the 160s. We will give her her home medication and continue to monitor her. EKG ordered and interpreted by me showing no acute ischemic changes. Patient continued to be well-appearing and pressure continued to be essentially unremarkable. I will recommend her watching her sodium, taking her blood pressure more regularly for the next week, if she has persistent elevations they need to go up on her medication or start her on a new one. Initial ECG Impression Date: Feb 20, 2023 Initial ECG Impression Time: 05:21 Initial ECG Rate: 56 Initial ECG Rhythm: Normal Sinus Comment Narrow QRS, normal axis, no STEMI. Departure Impression Primary Impression: Hypertension Qualified Codes: I10 - Essential (primary) hypertension Additional Impression: Skin flushed Disposition: 01 HOME, SELF-CARE Condition: Stable Departure-Patient Inst. Decision time for Depature: 06:15 Referrals: RICHIE CALVILLO MD (PCP/Family) Primary Care Physician Patient Instructions: High Blood Pressure ED Add. Discharge Instructions: Your blood pressure was elevated on arrival to the ER, it did trend down with rest. We recommend keeping a blood pressure journal for the next couple weeks, if you have persistent elevations, they may need to increase the dose of your metoprolol or start you on a different medication as well. We recommend trying to watch her diet over the course of this week as well and monitor the amount of sodium in you are taking it. Come back to the ER if you having severe chest pain, severe shortness of breath, worst headache of your life, or weakness or numbness on one side of your body that would be concerning for stroke. Otherwise, please be sure to follow back up with your regular doctor soon. Tonight if your blood pressure is more than 130/80 and your heart rate is more than 55, we recommend taking your regular medicine at your regular time. Otherwise, just continue your regular scheduled medications tomorrow morning. Work/School Note: Work Release Form Date Seen in the Emergency Department: Feb 20, 2023 Return to Work: Feb 21, 2023 Restrictions: No Restrictions JESUS CARUSO MD Feb 20, 2023 05:23
== END 2023-02-20 06:30 | disposition home or self-care (01) ==
LOC: EDUNIT# 04:47 → ER FS 04:49
DX: I10 Essential (primary) hypertension (principal); R23.2 Flushing; Z95.2 Presence of prosthetic heart valve; Z79.01 Long term (current) use of anticoagulants; Z79.899 Other long term (current) drug therapy
CPT/HCPCS: 93005

== ENCOUNTER 2023-04-12 02:25 | Emergency (ER) | payer MEDICARE, OTHER ==
[2023-04-12] MEDS ORDERED: ACETAMINOPHEN 500 MG TABLET PO STA (02:48)
[2023-04-12 02:54] LABS: BASOPHILS % (AUTO) 0 % (0-10); EOSINOPHILS # (AUTO) 0.2 10^3/uL (0.0-0.3); EOSINOPHILS % (AUTO) 2 % (0-10); HEMATOCRIT 46 % (35-52); HEMOGLOBIN 15.7 g/dL (11.5-16.0); LYMPHOCYTES # (AUTO) 3.2 X 10^3 (1.0-4.0); LYMPHOCYTES % (AUTO) 45 % (12-44); MEAN CORPUSCULAR HEMOGLOBIN 31 pg (25-34); MEAN CORPUSCULAR HGB CONC 34 g/dL (32-36); MEAN CORPUSCULAR VOLUME 92 fL (80-99); MONOCYTES # (AUTO) 0.8 X 10^3 (0.0-1.0); MONOCYTES % (AUTO) 11 % (0-12); NEUTROPHILS # (AUTO) 2.9 X 10^3 (1.8-7.8); NEUTROPHILS % (AUTO) 41 % (42-75); PLATELET COUNT 191 10^3/uL (130-400); WHITE BLOOD COUNT 7.1 10^3/uL (4.3-11.0)
--- NOTE | 2023-04-12 02:55 | ED General ---
General Chief Complaint: General Problems/Pain Stated Complaint: ELEVATED BP AND PULSE Nursing Triage Note: Pt states she felt like her heart rate was running higher than normal while at home. Pt states she felt like she could feel her pulse in her face. Source of Information: Patient History of Present Illness Date Seen by Provider: Apr 12, 2023 Time Seen by Provider: 02:28 Initial Comments 72-year-old female presenting with complaints of feeling like her heart was racing and her blood pressure was up. She had gotten up around 2 AM to use the restroom and noticed that felt like her face was flushed and pulsating. She checked her blood pressure and it was elevated as well as looking at her heart rate on her watch showed that she was up into the 80s for her heart rate. Normally she runs around 50 or 60. She became more anxious and worried and came to the emergency department to be evaluated. She has been under extra stress recently with recent diagnosis of gout as well as worry about her . He has Parkinson's and has been having more complications recently. She has felt stressed from having to deal with his issues as well as her own. Timing/Duration: 1 Hour Severity: Moderate Modifying Factors: worse with Other (Stress makes it worse) Associated Systoms: No Chest Pain, No Cough, No Diaphoresis, No Fever/Chills; Headaches (Right-sided headache); No Loss of Appetite, No Malaise, No Nausea/Vomiting, No Rash, No Seizure, No Shortness of Air, No Syncope, No Weakness Allergies and Home Medications Allergies Coded Allergies: amoxicillin (Verified Allergy, Unknown, 03/06/21) clavulanic acid (Verified Allergy, Unknown, 03/06/21) Patient Home Medication List Home Medication List Reviewed: Yes Ascorbic Acid (Vitamin C) 250 Mg Tab.chew, 250 MG PO DAILY, (Reported) Entered as Reported by: FRANCO VAZQUEZ on 03/06/21 1227 Atorvastatin Calcium (Atorvastatin Calcium) 20 Mg Tablet, 20 MG PO HS, (Reported) Entered as Reported by: FRANCO VAZQUEZ on 03/06/21 1227 Ca Carbonate/Vitamin D3/Vit K (Citracal Soft Chew) 1 Each Tab.chew, 1 EACH PO DAILY, (Reported) Entered as Reported by: FRANCO VAZQUEZ on 03/06/21 1227 Chlorhexidine Gluconate (Chlorhexidine Gluconate) 473 Ml Mouthwash, 15 ML MM TID Prescribed by: JESUS CARUSO on 10/10/21 1728 Cholecalciferol (Vitamin D3) (Vitamin D3) 50 Mcg Tab.chew, 50 MCG PO DAILY, (Reported) Entered as Reported by: FRANCO VAZQUEZ on 03/06/21 1227 Ciclopirox Olamine (Ciclopirox) 15 Gm Cream..g., 1 APPLIC TOP BID, (Reported) Entered as Reported by: FRANCO VAZQUEZ on 03/06/21 1227 Fluticasone Propionate (Fluticasone Propionate) 16 Gm [place].susp, 1 SPRAY NSEACH DAILY, (Reported) Entered as Reported by: FRANCO VAZQUEZ on 03/06/21 122 Folic Acid/Multivit-Minerals (Women's Multivitamin Gummies) 200 Mcg Tab.chew, 200 MCG PO DAILY, (Reported) Entered as Reported by: FRANCO VAZQUEZ on 03/06/21 122 Furosemide (Furosemide) 40 Mg Tablet, 40 MG PO DAILY Prescribed by: ILENE BOURGEOIS on 03/07/21 1346 Ibuprofen (Ibuprofen) 100 Mg Tab.chew, 200 MG PO Q8H PRN for PAIN-MILD (1-4), (Reported) Entered as Reported by: FRANCO VAZQUEZ on 03/06/21 122 Potassium Chloride (Potassium Chloride) 40 Meq/15 Ml Liquid, 10 MEQ PO DAILY Prescribed by: ILENE BOURGEOIS on 03/07/21 1346 Ubidecarenone (Coq10) 50 Mg Tab.chew, 50 MG PO DAILY, (Reported) Entered as Reported by: FRANCO VAZQUEZ on 03/06/21 1227 Review of Systems Review of Systems Constitutional: No chills, No dizziness, No fever EENTM: no symptoms reported; No blurred vision Respiratory: no symptoms reported Cardiovascular: palpitations Gastrointestinal: No nausea, No vomiting Genitourinary: No dysuria Musculoskeletal: joint pain Skin: No rash Psychiatric/Neurological: Anxiety Past Qjhvzvl-Yaxnmc-Eljjio Hx Patient Social History Tobacco Use?: No Use of E-Cig and/or Vaping dev: No Substance use?: No Alcohol Use?: No Pt feels they are or have been: No Immunizations Up To Date First/Initial COVID19 Vaccinat: unk Past Medical History Surgery/Hospitalization HX: Cardiac, mitral valve prolapse, mitral valve replacement Surgeries: Yes (mechanical mitral valve replacement) Cardiac: Yes High Cholesterol, Hypertension, Valvular Heart Disease Physical Exam Vital Signs Vital Signs - First Documented 04/12/23 02:29 Pulse 60 Resp 16 B/P (MAP) 164/73 (103) Pulse Ox 99 O2 Delivery Room Air Capillary Refill : Less Than 3 Seconds Height, Weight, BMI Height: '" Weight: lbs. oz. kg; 21.00 BMI Method: General Appearance: Anxious HEENT: PERRL/EOMI, Moist Mucous Membranes Neck: Non Tender, Supple Respiratory: Chest Non Tender, Lungs Clear, Normal Breath Sounds, No Accessory Muscle Use, No Respiratory Distress Cardiovascular: Regular Rate, Rhythm, Normal Peripheral Pulses Gastrointestinal: Normal Bowel Sounds, No Pulsatile Mass, Non Tender, Soft Extremity: Normal Capillary Refill, Normal Inspection, No Pedal Edema Neurologic/Psychiatric: Alert, Oriented x3, way inspector II-XII Norm as Tested, Other (Anxious) Skin: Warm/Dry Progress/Results/Core Measures Suspected Sepsis SIRS Temperature: Pulse: 60 Respiratory Rate: 16 Laboratory Tests 04/12/23 02:40: White Blood Count 7.1 Blood Pressure 164 /73 Mean: 103 Laboratory Tests 04/12/23 02:40: Creatinine 0.70, Platelet Count 191, Total Bilirubin 0.3 Results/Orders Lab Results Laboratory Tests Test 04/12/23 02:40 Range/Units White Blood Count 7.1 4.3-11.0 10^3/uL Red Blood Count 5.05 3.80-5.11 10^6/uL Hemoglobin 15.7 11.5-16.0 g/dL Hematocrit 46 35-52 % Mean Corpuscular Volume 92 80-99 fL Mean Corpuscular Hemoglobin 31 25-34 pg Mean Corpuscular Hemoglobin Concent 34 32-36 g/dL Red Cell Distribution Width 13.6 10.0-14.5 % Platelet Count 191 130-400 10^3/uL Mean Platelet Volume 11.0 9.0-12.2 fL Neutrophils (%) (Auto) 41 L 42-75 % Lymphocytes (%) (Auto) 45 H 12-44 % Monocytes (%) (Auto) 11 0-12 % Eosinophils (%) (Auto) 2 0-10 % Basophils (%) (Auto) 0 0-10 % Neutrophils # (Auto) 2.9 1.8-7.8 X 10^3 Lymphocytes # (Auto) 3.2 1.0-4.0 X 10^3 Monocytes # (Auto) 0.8 0.0-1.0 X 10^3 Eosinophils # (Auto) 0.2 0.0-0.3 10^3/uL Basophils # (Auto) 0.0 0.0-0.1 10^3/uL Sodium Level 135 135-145 MMOL/L Potassium Level 4.1 3.6-5.0 MMOL/L Chloride Level 99 98-107 MMOL/L Carbon Dioxide Level 26 21-32 MMOL/L Anion Gap 10 5-14 MMOL/L Blood Urea Nitrogen 17 7-18 MG/DL Creatinine 0.70 0.60-1.30 MG/DL Estimat Glomerular Filtration Rate 92 BUN/Creatinine Ratio 24 Glucose Level 108 H 70-105 MG/DL Calcium Level 9.8 8.5-10.1 MG/DL Corrected Calcium 9.4 8.5-10.1 MG/DL Total Bilirubin 0.3 0.1-1.0 MG/DL Aspartate Amino Transf (AST/SGOT) 34 5-34 U/L Alanine Aminotransferase (ALT/SGPT) 38 0-55 U/L Alkaline Phosphatase 125 40-136 U/L Total Protein 7.2 6.4-8.2 GM/DL Albumin 4.5 3.2-4.5 GM/DL My Orders Orders - CLEVELAND LONG MD Comprehensive Metabolic Panel (04/12/23 02:48) Ed Iv/Invasive Line Start (04/12/23 02:48) Cbc With Automated Diff (04/12/23 02:48) Acetaminophen Tablet (Acetaminophen Ta (04/12/23 02:48) Ekg Tracing (04/12/23 02:48) Vital Signs/I&O 04/12/23 02:29 Pulse 60 Resp 16 B/P (MAP) 164/73 (103) Pulse Ox 99 O2 Delivery Room Air Capillary Refill : Less Than 3 Seconds Blood Pressure Mean: 103 Progress Note #1: Progress Note Possible diagnosis of anxiety, electrolyte imbalance, labile hypertension, stress reaction. Initial blood pressure was 228/82. She is resting in the bed and speaking calmly to her her blood pressure gradually came down to 178/76 and then to 164/73. Heart rate is 58 to 62 bpm. It appears to be a sinus rhythm. Obtain electrocardiogram and place on cardiac vehicle monitor technician. Establish peripheral IV and send for complete blood count and comprehensive metabolic profile. Since she did not take Tylenol before bed like usual for joint pain will administer acetaminophen 500 mg p.o. x1. Discussed the option of giving an additional 5 mg of metoprolol IV but with her blood pressure coming down on its own will continue to monitor for now. See how the Tylenol and rest do in terms of her headache and blood pressure. If she continues to have blood pressure over 160 systolic will add in an additional dose of metoprolol 5 mg IV. Progress Note #2: Time: 03:12 Progress Note Her complete blood count did not show an elevated white blood cell count as it was at 7.1. She was not anemic with a hemoglobin of 15.7. Her comprehensive metabolic profile showed no acute electrolyte abnormality. She had normal liver enzymes. Patient stated that she was anxious and worried that her liver enzymes would still be elevated because they were the last time they were checked. Her blood pressures come down to 146/67 with the Tylenol and resting in the room. We will reassure the patient and encouraged her to continue taking her regular medicines. Reassured her that her electrolytes and liver enzymes looked okay. Some of this was probably stress and anxiety related. ECG Initial ECG Impression Date: Apr 12, 2023 Initial ECG Impression Time: 02:34 Initial ECG Rate: 60 Initial ECG Rhythm: Normal Sinus Initial ECG Comparisson: Unchanged (02/20/2023) Comment My personal interpretation and review of her electrocardiogram shows sinus rhythm with sinus arrhythmia and first-degree AV block with a rate of 60 bpm. HI interval 238 ms. Incomplete right bundle branch block. No acute ST elevation. QT interval 411 ms with a QTc interval 412 ms. Overall appears similar to tracing from February 20, 2023. Departure Impression Primary Impression: Labile hypertension Additional Impressions: Anxiety about health Stress reaction Disposition: HOME, SELF-CARE Condition: Improved Departure-Patient Inst. Decision time for Depature: 03:13 Referrals: SELFRICHIE MD (PCP/Family) Primary Care Physician Patient Instructions: High Blood Pressure ED, Anxiety, Adult ED, Stress Add. Discharge Instructions: Continue taking your regular medications. Follow-up with clinic about continued concerns. Your test tonight all looked good without any signs of electrolyte abnormality or issues with your kidneys or liver. All discharge instructions reviewed with patient and/or family. Voiced understanding. CLEVELAND LONG MD Apr 12, 2023 02:55
[2023-04-12 03:09] LABS: BILIRUBIN,TOTAL 0.3 MG/DL (0.1-1.0); CALCIUM 9.8 MG/DL (8.5-10.1); CREATININE SERUM 0.7 MG/DL (0.60-1.30); POTASSIUM 4.1 MMOL/L (3.6-5.0); TOTAL PROTEIN 7.2 GM/DL (6.4-8.2)
[2023-04-12 03:10] LABS: ALBUMIN 4.5 GM/DL (3.2-4.5)
[2023-04-12 03:14] VITALS: BP 146/67
== END 2023-04-12 03:25 | disposition home or self-care (01) ==
LOC: EDUNIT# 02:25 → ER FS 02:27
DX: I10 Essential (primary) hypertension (principal); F41.9 Anxiety disorder, unspecified; F43.9 Reaction to severe stress, unspecified; Z28.310 Unvaccinated for COVID-19
CPT/HCPCS: 36415; 80053; 85025; 93005